=== PATIENT | female | born 1940 | race American Indian/Alaskan Native ===

== ENCOUNTER 2016-07-22 12:49 | Emergency (ER) | payer MEDICARE, SELFPAY ==
[2016-07-22 13:05] VITALS: BP 133/72
--- NOTE | 2016-07-22 13:34 | EDM.PDOC ---
ED HPI ENT - General Chief Complaint: ENT Problem Stated Complaint: SORE THROAT, CHILLS, COUGH Time Seen by Provider: 07/22/16 13:20 Source: Reports: Patient History Limitations: Reports: No limitations - History of Present Illness INITIAL COMMENTS - FREE TEXT/NARRATIVE: 75 year old female with a sore throat for two days after being exposed to strep throat from her grandchild. No fevers or chills. Severity: mild Associated symptoms: Reports: nausea/vomiting (vomiting two days age). Denies: headaches, shortness of breath - Related Data Allergies/ADRs: Allergies Allergy/AdvReac Type Severity Reaction Status Date / Time diclofenac [From Voltaren] Allergy Cannot Verified 01/04/16 08:53 Remember tramadol Allergy Cannot Verified 01/04/16 08:53 Remember aspirin AdvReac Intermediate Syncope Verified 01/04/16 08:53 ibuprofen AdvReac Intermediate Syncope Verified 01/04/16 08:53 Home Meds: Home Meds Losartan [Cozaar] 100 tab PO DAILY 04/30/15 [History] atorvaSTATin [Lipitor] 40 mg PO BEDTIME #30 tablet 05/01/15 [Rx] Albuterol [Ventolin HFA] 1 - 2 puff .XX Q4H PRN 09/26/15 [History] Apixaban [Eliquis] 2.5 mg PO BID 09/26/15 [History] Calcium Carbonate/Vitamin D3 [Calcium 600-Vit D3 400 Tablet] 1 tab PO BID [History] Magnesium Oxide 400 mg PO BID 09/26/15 [History] Cholecalciferol (Vitamin D3) [Vitamin D3] 1,000 units PO DAILY 11/29/15 [History ] Cyanocobalamin (Vitamin B-12) [B-12] 500 mcg PO DAILY 11/29/15 [History] Docusate Sodium [Colace] 100 mg PO BID 11/29/15 [History] Hydrocodone/Acetaminophen [Hydrocodon-Acetaminophen 5-325] 1 tab PO BEDTIME 10/09 [History] Ipratropium [Atrovent HFA] 2 puff IH BID 11/29/15 [History] Loratadine 10 mg PO DAILY 11/29/15 [History] Polyethylene Glycol 3350 [Miralax] 17 gm PO ASDIRECTED 11/29/15 [History] Spironolactone [Aldactone] 25 mg PO DAILY 11/29/15 [History] Multivitamins [Tab-A-Sarah] 1 tab PO DAILY 01/02/16 [History] Sodium Chloride [Deep Sea] 1 - 2 spray NASBOTH ASDIRECTED 01/02/16 [History] Pantoprazole [Protonix] 40 mg PO DAILY 01/04/16 [History] Sotalol HCl [Sotalol] 80 mg PO BID 06/16/16 [History] Past Medical History HEENT History: Reports: Allergic rhinitis, Cataract, Impaired vision Cardiovascular History: Reports: Afib, High cholesterol, Hypertension Respiratory History: Reports: Bronchitis, recurrent, COPD, Pneumonia, recurrent Gastrointestinal History: Reports: Chronic constipation, Gastritis, GERD Genitourinary History: Reports: Renal calculus, UTI, recurrent [employer] History: Reports: 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, Musculoskeletal History: Reports: Arthritis, Back pain, chronic, Osteoarthritis , RA Neurological History: Reports: CVA, Migraines, Vertigo Psychiatric History: Reports: Depression Endocrine/Metabolic History: Reports: Vitamin D deficiency Hematologic History: Reports: Anemia, B12 deficiency, Blood transfusion(s), Iron deficiency - Infectious Disease History Infectious Disease History: Reports: Chicken pox, Measles, Mumps, TB - Past Surgical History Head Surgeries/Procedures: Reports: None HEENT Surgical History: Reports: Cataract surgery, Oral surgery Cardiovascular Surgical History: Reports: None Respiratory Surgical History: Reports: None GI Surgical History: Reports: Cholecystectomy, EGD Female Surgical History: Reports: Hysterectomy, Oophorectomy Endocrine Surgical History: Reports: None Neurological Surgical History: Reports: Laminectomy, Lumbar spine Musculoskeletal Surgical History: Reports: None Dermatological Surgical History: Reports: None Social & Family History - Family History Family Medical History: Noncontributory - Tobacco Use Smoking Status *Q: Current Every Day Smoker Years of Tobacco use: 30 Packs/Tins Daily: 1 Used Tobacco, but Quit: No Second Hand Smoke Exposure: No - Caffeine Use Caffeine Use: Reports: Coffee, Soda, Tea - Alcohol Use Days Per Week of Alcohol Use: 0 - Recreational Drug Use Recreational Drug Use: No ED ROS ENT - Review of Systems Review Of Systems: See Below Constitutional: Denies: fever, chills HEENT: Reports: Throat pain Respiratory: Denies: shortness of breath, cough GI/Abdominal: Reports: Vomiting. Denies: Diarrhea Neurological: Reports: no symptoms. Denies: headache ED EXAM, ENT - Physical Exam Exam: See Below Exam Limited By: No limitations General Appearance: alert, no apparent distress Mouth/Throat: Pharyngeal erythema Neck: No: lymphadenopathy (R), lymphadenopathy (L) Respiratory/Chest: no respiratory distress, lungs clear Course - Vital Signs Last Recorded V/S: Last Vital Signs Temp 96.8 F 07/22/16 13:05 Pulse 64 07/22/16 13:05 Resp 16 07/22/16 13:05 BP 133/72 07/22/16 13:05 Pulse Ox 97 07/22/16 13:05 - Re-Assessments/Exams Free Text/Narrative Re-Assessment/Exam: 07/22/16 13:31 Because of the exposure we will treat with with amoxicillin 500 mg three times daily. Return if worsening or recheck in 3 days if not improving Departure - Departure Time of Disposition: 14:02 Disposition: Home, Self-Care 01 Condition: good Clinical Impression: Strep pharyngitis Instructions: Pharyngitis Referrals: PCP,None [Primary Care Provider] - Forms: ED Department Discharge Care Plan Goals: Take antibiotic three times daily for 7 days, return if worsening despite treatment or consider recheck in 3 days if not improving
== END 2016-07-22 14:01 | disposition home or self-care (01) ==
LOC: JP.ED 12:49
DX: J02.9 Acute pharyngitis, unspecified (principal); I10 Essential (primary) hypertension; I48.91 Unspecified atrial fibrillation; J44.9 Chronic obstructive pulmonary disease, unspecified; K21.9 Gastro-esophageal reflux disease without esophagitis; M06.9 Rheumatoid arthritis, unspecified; F32.9 Major depressive disorder, single episode, unspecified; F17.210 Nicotine dependence, cigarettes, uncomplicated; Z98.49 Cataract extraction status, unspecified eye; Z90.49 Acquired absence of other specified parts of digestive tract; Z90.710 Acquired absence of both cervix and uterus; Z90.721 Acquired absence of ovaries, unilateral; Z98.890 Other specified postprocedural states; Z79.899 Other long term (current) drug therapy; Z88.8 Allergy status to other drugs, medicaments and biological substances
CPT/HCPCS: 99283

== ENCOUNTER 2016-08-27 20:51 | Emergency (ER) | payer MEDICARE ==
[2016-08-27 21:06] VITALS: BP 162/73
--- NOTE | 2016-08-27 21:45 | EDM.PDOC ---
ED HPI ENT - General Chief Complaint: ENT Problem Stated Complaint: STREP Time Seen by Provider: 08/27/16 21:42 Source: Reports: Patient History Limitations: Reports: No limitations - History of Present Illness INITIAL COMMENTS - FREE TEXT/NARRATIVE: pt was exposesd to strept this week end. Timing/Duration: Reports: Hour(s):, Getting worse Severity: moderate Location: Reports: throat Quality: Reports: Sharp Associated symptoms: Reports: other (pain with swallowing. ) - Related Data Allergies/ADRs: Allergies Allergy/AdvReac Type Severity Reaction Status Date / Time diclofenac [From Voltaren] Allergy Cannot Verified 08/27/16 21:07 Remember tramadol Allergy Cannot Verified 08/27/16 21:07 Remember aspirin AdvReac Intermediate Syncope Verified 08/27/16 21:07 ibuprofen AdvReac Intermediate Syncope Verified 08/27/16 21:07 Home Meds: Home Meds Losartan [Cozaar] 100 tab PO DAILY 04/30/15 [History] atorvaSTATin [Lipitor] 40 mg PO BEDTIME #30 tablet 05/01/15 [Rx] Albuterol [Ventolin HFA] 1 - 2 puff .XX Q4H PRN 09/26/15 [History] Apixaban [Eliquis] 2.5 mg PO BID 09/26/15 [History] Calcium Carbonate/Vitamin D3 [Calcium 600-Vit D3 400 Tablet] 1 tab PO BID [History] Magnesium Oxide 400 mg PO BID 09/26/15 [History] Cholecalciferol (Vitamin D3) [Vitamin D3] 1,000 units PO DAILY 11/29/15 [History ] Cyanocobalamin (Vitamin B-12) [B-12] 500 mcg PO DAILY 11/29/15 [History] Docusate Sodium [Colace] 100 mg PO BID 11/29/15 [History] Hydrocodone/Acetaminophen [Hydrocodon-Acetaminophen 5-325] 1 tab PO BEDTIME 10/09 [History] Ipratropium [Atrovent HFA] 2 puff IH BID 11/29/15 [History] Loratadine 10 mg PO DAILY 11/29/15 [History] Polyethylene Glycol 3350 [Miralax] 17 gm PO ASDIRECTED 11/29/15 [History] Spironolactone [Aldactone] 25 mg PO DAILY 11/29/15 [History] Multivitamins [Tab-A-Sarah] 1 tab PO DAILY 01/02/16 [History] Sodium Chloride [Deep Sea] 1 - 2 spray NASBOTH ASDIRECTED 01/02/16 [History] Pantoprazole [ProTONIX] 40 mg PO DAILY 01/04/16 [History] Sotalol HCl [Sotalol] 80 mg PO BID 06/16/16 [History] Past Medical History HEENT History: Reports: Allergic rhinitis, Cataract, Impaired vision Cardiovascular History: Reports: Afib, High cholesterol, Hypertension Respiratory History: Reports: Bronchitis, recurrent, COPD, Pneumonia, recurrent Gastrointestinal History: Reports: Chronic constipation, Gastritis, GERD Genitourinary History: Reports: Renal calculus, UTI, recurrent 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: 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, Musculoskeletal History: Reports: Arthritis, Back pain, chronic, Osteoarthritis , RA Neurological History: Reports: CVA, Migraines, Vertigo Psychiatric History: Reports: Depression Endocrine/Metabolic History: Reports: Vitamin D deficiency Hematologic History: Reports: Anemia, B12 deficiency, Blood transfusion(s), Iron deficiency Oncologic (Cancer) History: Reports: Leukemia - Infectious Disease History Infectious Disease History: Reports: Chicken pox, Measles - Past Surgical History Head Surgeries/Procedures: Reports: None HEENT Surgical History: Reports: Cataract surgery, Oral surgery Cardiovascular Surgical History: Reports: None Respiratory Surgical History: Reports: None GI Surgical History: Reports: Cholecystectomy, Colonoscopy, EGD Female Surgical History: Reports: Hysterectomy, Oophorectomy Endocrine Surgical History: Reports: None Neurological Surgical History: Reports: Laminectomy, Lumbar spine Musculoskeletal Surgical History: Reports: None Oncologic Surgical History: Reports: Bone marrow aspiration Dermatological Surgical History: Reports: None Social & Family History - Family History Family Medical History: Noncontributory - Tobacco Use Smoking Status *Q: Current Every Day Smoker Years of Tobacco use: 55 Packs/Tins Daily: 0.2 Used Tobacco, but Quit: No Second Hand Smoke Exposure: No - Caffeine Use Caffeine Use: Reports: Coffee, Soda, Tea - Alcohol Use Days Per Week of Alcohol Use: 0 - Recreational Drug Use Recreational Drug Use: No ED ROS ENT - Review of Systems Review Of Systems: See Below Constitutional: Reports: fatigue HEENT: Reports: Throat pain Respiratory: Reports: No Symptoms Cardiovascular: Reports: No symptoms Endocrine: Reports: no symptoms GI/Abdominal: Reports: No symptoms : Reports: no symptoms ED EXAM, ENT - Physical Exam Exam: See Below Text/Narrative:: pt has alot of pain with swallowing. She has a known exposure to strept. Exam Limited By: No limitations General Appearance: alert, anxious Ears: normal TMs Nose: normal inspection Mouth/Throat: Throat pain, Other ( there are 2 red areas in the rt tonsilar area which could be small canker like sores. ) Head: atraumatic Neck: lymphadenopathy (R), lymphadenopathy (L) Respiratory/Chest: no respiratory distress Cardiovascular: regular rate, rhythm GI/Abdominal: soft, non tender Course - Vital Signs Last Recorded V/S: Last Vital Signs Temp 36.1 C 08/27/16 21:13 Pulse 77 08/27/16 21:13 Resp 14 08/27/16 21:13 BP 162/73 H 08/27/16 21:13 Pulse Ox 98 08/27/16 21:13 - Orders/Labs/Meds Orders: Active Orders 24 hr Category Date Time Status CULTURE STREP A CONFIRMATION [] Stat Lab 08/27/16 21:18 Results STREP SCRN A RAPID W CULT CONF [RM] Stat Lab 08/27/16 21:18 Results Labs: Laboratory Tests 08/27/16 Range/Units 21:42 WBC 10.3 (4.5-11.0) K/uL RBC 1.51 L (3.30-5.50) M/uL Hgb 12.0 (12.0-15.0) g/dL Hct 16.0 L (36.0-48.0) % MCV 106 H (80-98) fL MCH 80 H (27-31) pg MCHC 75 H (32-36) % Plt Count 296 (150-400) K/uL Neut % (Auto) 58 (36-66) % Lymph % (Auto) 31 (24-44) % [place] % (Auto) 9 H (2-6) % Eos % (Auto) 2 (2-4) % Baso % (Auto) 1 (0-1) % - Re-Assessments/Exams Free Text/Narrative Re-Assessment/Exam: 08/27/16 22:01 strept was neg, her wbc is not markedly elevated. She did have a definite strept exposure. Departure - Departure Time of Disposition: 22:02 Disposition: Home, Self-Care 01 Condition: fair Clinical Impression: Acute infective pharyngitis Forms: ED Department Discharge Care Plan Goals: gargle frequently, amoxicillin 500mg tid - My Orders Last 24 Hours: My Active Orders 08/27/16 21:18 CULTURE STREP A CONFIRMATION [RM] Stat STREP SCRN A RAPID W CULT CONF [RM] Stat - Assessment/Plan Last 24 Hours: My Active Orders 08/27/16 21:18 CULTURE STREP A CONFIRMATION [RM] Stat STREP SCRN A RAPID W CULT CONF [] Stat
== END 2016-08-27 22:14 | disposition home or self-care (01) ==
LOC: JP.ED 20:51
DX: J02.9 Acute pharyngitis, unspecified (principal); I10 Essential (primary) hypertension; I48.91 Unspecified atrial fibrillation; M19.90 Unspecified osteoarthritis, unspecified site; J44.9 Chronic obstructive pulmonary disease, unspecified; K21.9 Gastro-esophageal reflux disease without esophagitis; F32.9 Major depressive disorder, single episode, unspecified; E78.00 Pure hypercholesterolemia, unspecified; Z87.01 Personal history of pneumonia (recurrent); M06.9 Rheumatoid arthritis, unspecified; Z88.6 Allergy status to analgesic agent; F17.210 Nicotine dependence, cigarettes, uncomplicated; Z88.5 Allergy status to narcotic agent; Z86.2 Personal history of diseases of the blood and blood-forming organs and certain disorders involving the immune mechanism; Z88.8 Allergy status to other drugs, medicaments and biological substances; Z79.899 Other long term (current) drug therapy; Z87.440 Personal history of urinary (tract) infections; Z86.73 Personal history of transient ischemic attack (TIA), and cerebral infarction without residual deficits; Z98.49 Cataract extraction status, unspecified eye; Z98.890 Other specified postprocedural states; Z90.49 Acquired absence of other specified parts of digestive tract; Z90.710 Acquired absence of both cervix and uterus
CPT/HCPCS: 36415; 85025; 87081; 87430; 99283; 99284

== ENCOUNTER 2016-10-14 12:43 | Emergency (ER) | payer MEDICARE, SELFPAY ==
--- NOTE | 2016-10-14 14:11 | EDM.PDOC ---
ED HPI GENERAL MEDICAL PROBLEM - General Chief Complaint: General Stated Complaint: MED[facility] Time Seen by Provider: 10/14/16 14:04 Source of Information: Reports: Patient, Family History Limitations: Reports: No Limitations - History of Present Illness INITIAL COMMENTS - FREE TEXT/NARRATIVE: Pt brought to ER after feeling dizzy about 1100. Was sweaty. Called the ambulance due to her past history. Does live with a daughter but she is out of town. Pt has not had any new meds or changes lately. Appetite has been good. Got up at 0700 and ate 2 pieces of toast and then went back to bed. Was "feeling funny." Does have history of bladder infection. Denies fever or recent illness. Onset: Today Onset Date: 10/14/16 Onset Time: 11:00 Duration: Resolved Prior to Arrival Improves with: Reports: None Worsens with: Reports: None Associated Symptoms: Reports: Diaphoresis - Related Data Allergies Allergy/AdvReac Type Severity Reaction Status Date / Time diclofenac [From Voltaren] Allergy Cannot Verified 10/14/16 13:25 Remember tramadol Allergy Cannot Verified 10/14/16 13:25 Remember aspirin AdvReac Intermediate Syncope Verified 10/14/16 13:25 ibuprofen AdvReac Intermediate Syncope Verified 10/14/16 13:25 Home Meds: Home Meds Losartan [Cozaar] 100 tab PO DAILY 04/30/15 [History] atorvaSTATin [Lipitor] 40 mg PO BEDTIME #30 tablet 05/01/15 [Rx] Albuterol [Ventolin HFA] 1 - 2 puff .XX Q4H PRN 09/26/15 [History] Apixaban [Eliquis] 2.5 mg PO BID 09/26/15 [History] Calcium Carbonate/Vitamin D3 [Calcium 600-Vit D3 400 Tablet] 1 tab PO BID [History] Magnesium Oxide 400 mg PO BID 09/26/15 [History] Cholecalciferol (Vitamin D3) [Vitamin D3] 1,000 units PO DAILY 11/29/15 [History ] Cyanocobalamin (Vitamin B-12) [B-12] 500 mcg PO DAILY 11/29/15 [History] Docusate Sodium [Colace] 100 mg PO BID 11/29/15 [History] Hydrocodone/Acetaminophen [Hydrocodon-Acetaminophen 5-325] 1 tab PO BEDTIME 10/09 [History] Ipratropium [Atrovent HFA] 2 puff IH BID 11/29/15 [History] Loratadine 10 mg PO DAILY 11/29/15 [History] Polyethylene Glycol 3350 [Miralax] 17 gm PO ASDIRECTED 11/29/15 [History] Spironolactone [Aldactone] 25 mg PO DAILY 11/29/15 [History] Multivitamins [Tab-A-Sarah] 1 tab PO DAILY 01/02/16 [History] Sodium Chloride [Deep Sea] 1 - 2 spray NASBOTH ASDIRECTED 01/02/16 [History] Pantoprazole [ProTONIX] 40 mg PO DAILY 01/04/16 [History] Sotalol HCl [Sotalol] 80 mg PO BID 06/16/16 [History] Past Medical History HEENT History: Reports: Allergic Rhinitis, Cataract, Impaired Vision Cardiovascular History: Reports: Afib, High Cholesterol, Hypertension Respiratory History: Reports: Bronchitis, Recurrent, COPD, Pneumonia, Recurrent Gastrointestinal History: Reports: Chronic Constipation, Gastritis, GERD Genitourinary History: Reports: Renal Calculus, UTI, 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, Musculoskeletal History: Reports: Arthritis, Back Pain, Chronic, Osteoarthritis , RA Neurological History: Reports: CVA, Migraines, Vertigo Psychiatric History: Reports: Depression Endocrine/Metabolic History: Reports: Vitamin D Deficiency Hematologic History: Reports: Anemia, B12 Deficiency, Blood Transfusion(s), Iron Deficiency Oncologic (Cancer) History: Reports: Lymphoma, Other (See Below) - Infectious Disease History Infectious Disease History: Reports: Chicken Pox, Measles - Past Surgical History Head Surgeries/Procedures: Reports: None HEENT Surgical History: Reports: Cataract Surgery, Oral Surgery Neurological Surgical History: Reports: Laminectomy, Lumbar Spine Oncologic Surgical History: Reports: Bone Marrow Aspiration Dermatological Surgical History: Reports: None Social & Family History - Family History Family Medical History: Noncontributory - Tobacco Use Smoking Status *Q: Light Tobacco Smoker Years of Tobacco use: 58 Packs/Tins Daily: 0.5 Used Tobacco, but Quit: No Second Hand Smoke Exposure: No - Caffeine Use Caffeine Use: Reports: Coffee, Soda, Tea - Alcohol Use Days Per Week of Alcohol Use: 0 - Recreational Drug Use Recreational Drug Use: No ED ROS GENERAL - Review of Systems Review Of Systems: See Below Constitutional: Reports: Diaphoresis HEENT: Reports: No Symptoms Respiratory: Reports: No Symptoms Cardiovascular: Reports: No Symptoms Endocrine: Reports: No Symptoms GI/Abdominal: Reports: No Symptoms Musculoskeletal: Reports: No Symptoms Skin: Reports: Diaphoresis Neurological: Reports: Dizziness Psychiatric: Reports: No Symptoms Hematologic/Lymphatic: Reports: No Symptoms Immunologic: Reports: No Symptoms ED EXAM, GENERAL - Physical Exam Exam: See Below Course - Vital Signs Last Recorded V/S: Last Vital Signs Temp 96.4 F 10/14/16 13:22 Pulse 61 10/14/16 14:34 Resp 14 10/14/16 13:56 BP 174/83 H 10/14/16 14:34 Pulse Ox 98 10/14/16 14:34 - Orders/Labs/Meds Orders: Active Orders 24 hr Category Date Time Status Nitrofurantoin [place]/Macrocryst [Macrobid] Med 10/14/16 15:11 Once 100 mg PO ONETIME ONE Labs: Laboratory Tests 10/14/16 10/14/16 10/14/16 Range/Units 13:52 14:27 14:27 WBC 10.5 (4.5-11.0) K/uL RBC 3.45 (3.30-5.50) M/uL Hgb 12.7 (12.0-15.0) g/dL Hct 35.0 L (36.0-48.0) % MCV 101 H (80-98) fL MCH 37 H (27-31) pg MCHC 36 (32-36) % Plt Count 248 (150-400) K/uL Neut % (Auto) 68 H (36-66) % Lymph % (Auto) 19 L (24-44) % [place] % (Auto) 12 H (2-6) % Eos % (Auto) 1 L (2-4) % Baso % (Auto) 0 (0-1) % Sodium 142 (140-148) mmol/L Potassium 3.9 (3.6-5.2) mmol/L Chloride 106 (100-108) mmol/L Carbon Dioxide 26 (21-32) mmol/L Anion Gap 9.7 (5.0-14.0) mmol/L BUN 16 (7-18) mg/dL Creatinine 1.1 H (0.6-1.0) mg/dL Est Cr Clr Drug Dosing 40.38 mL/min Estimated GFR (MDRD) 49 L (>60) Glucose 117 H (74-106) mg/dL Calcium 8.9 (8.5-10.1) mg/dL Urine Color Yellow Urine Appearance Cloudy Urine pH 7.0 (4.5-8.0) Ur Specific [place] 1.010 (1.008-1.030) Urine Protein Negative (NEGATIVE) mg/dL Urine Glucose (UA) Normal (NEGATIVE) mg/dL Urine Ketones Negative (NEGATIVE) mg/dL Urine Occult Blood Negative (NEGATIVE) Urine Nitrite Negative (NEGATIVE) Urine Bilirubin Negative (NEGATIVE) Urine Urobilinogen Normal (NORMAL) mg/dL Ur Leukocyte Esterase Small (NEGATIVE) Urine RBC 5-10 H (0-5) Urine WBC 10-20 H (0-5) Ur Epithelial Cells Few Amorphous Sediment Few Urine Bacteria Rare Urine Mucus Few Departure - Departure Time of Disposition: 15:12 Disposition: Home, Self-Care 01 Condition: good Clinical Impression: UTI (urinary tract infection) Qualifiers: Urinary tract infection type: acute cystitis Hematuria presence: with hematuria Qualified Code(s): N30.01 - Acute cystitis with hematuria - Discharge Information Forms: ED Department Discharge Additional Instructions: Labs stable overall. UA does show UTI. Macrobid 100mg 1st dose given in ER. Rx given for Macrobid BID x 7 days. Recommend increase fluids, repeat UA with primary care in 2 weeks. Granddaughter voices understanding. Pt agrees with plan. - Problem List & Annotations (1) UTI (urinary tract infection) SNOMED Code(s): 41638471 Code(s): N39.0 - URINARY TRACT INFECTION, SITE NOT SPECIFIED Status: Acute Priority: Medium Current Visit: Yes Qualifiers: Urinary tract infection type: acute cystitis Hematuria presence: with hematuria Qualified Code(s): N30.01 - Acute cystitis with hematuria - My Orders Last 24 Hours: My Active Orders 10/14/16 15:11 Nitrofurantoin [place]/Macrocryst [Macrobid] 100 mg PO ONETIME ONE - Assessment/Plan Last 24 Hours: My Active Orders 10/14/16 15:11 Nitrofurantoin [place]/Macrocryst [Macrobid] 100 mg PO ONETIME ONE
[2016-10-14] MEDS ORDERED: Nitrofurantoin Monohydrate/Macrocrystalline 100 MG Cap PO ONE (15:11)
[2016-10-14 15:12] VITALS: BP 139/64
== END 2016-10-14 15:33 | disposition home or self-care (01) ==
LOC: JP.ED 12:43
DX: N30.01 Acute cystitis with hematuria (principal); I10 Essential (primary) hypertension; I48.91 Unspecified atrial fibrillation; E78.00 Pure hypercholesterolemia, unspecified; K21.9 Gastro-esophageal reflux disease without esophagitis; J44.9 Chronic obstructive pulmonary disease, unspecified; M19.90 Unspecified osteoarthritis, unspecified site; G43.909 Migraine, unspecified, not intractable, without status migrainosus; Z87.01 Personal history of pneumonia (recurrent); Z88.8 Allergy status to other drugs, medicaments and biological substances; Z79.899 Other long term (current) drug therapy; Z87.440 Personal history of urinary (tract) infections; Z86.73 Personal history of transient ischemic attack (TIA), and cerebral infarction without residual deficits; Z85.72 Personal history of non-Hodgkin lymphomas; Z98.49 Cataract extraction status, unspecified eye; Z98.890 Other specified postprocedural states
CPT/HCPCS: 36415; 80048; 81001; 85025; 99284; A9270; 99281

== ENCOUNTER 2016-12-10 15:05 | Emergency (ER) | payer MEDICAID, MEDICARE ==
[2016-12-10] MEDS ORDERED: Sodium Chloride 0.9% 10 ML Syringe FLUSH PRN (17:31)
[2016-12-10] MEDS ORDERED: Ondansetron 4 MG/2 ML SDV IVPUSH ONE (17:31)
[2016-12-10] MEDS ORDERED: Metoclopramide 10 MG/2 ML SDV IVPUSH ONE (17:37)
[2016-12-10] MEDS ORDERED: HYDROmorphone 0.5 MG/0.5 ML Syringe IVPUSH ONE (17:38)
[2016-12-10] MEDS ORDERED: diphenhydrAMINE 50 MG/ML SDV IVPUSH ONE (17:38)
[2016-12-10] MEDS ORDERED: Sodium Chloride 0.9% 1,000 ML IV SCH ×2 (17:45→19:15)
--- NOTE | 2016-12-10 17:47 | EDM.PDOC ---
ED HPI GENERAL MEDICAL PROBLEM - General Chief Complaint: General Stated Complaint: DIZZY, LIGHT HEADED TERRIBLE HEADACHE Time Seen by Provider: 12/10/16 17:25 Source of Information: Reports: Patient, Family History Limitations: Reports: No Limitations - History of Present Illness INITIAL COMMENTS - FREE TEXT/NARRATIVE: Susie presents today with complaints of headache, dizziness since 1000 this am. She reports she has a history of chronic UTI due to incomplete bladder emptying and develops a UTI every 2 months. She reports headache that started at the base of her skull and has now moved to her forehead. She denies change in vision, hearing, ability to ambulate or eat and drink. She states she was able to take her morning medications today. Onset: Today Onset Date: 12/10/16 Onset Time: 10:00 Duration: Hour(s): Location: Reports: Head Lower Headache Pain Score (Numeric/FACES): 8 - Related Data Allergies Allergy/AdvReac Type Severity Reaction Status Date / Time diclofenac [From Voltaren] Allergy Cannot Verified 10/14/16 13:25 Remember tramadol Allergy Cannot Verified 10/14/16 13:25 Remember aspirin AdvReac Intermediate Syncope Verified 10/14/16 13:25 ibuprofen AdvReac Intermediate Syncope Verified 10/14/16 13:25 Home Meds: Home Meds Losartan [Cozaar] 100 tab PO DAILY 04/30/15 [History] atorvaSTATin [Lipitor] 40 mg PO BEDTIME #30 tablet 05/01/15 [Rx] Albuterol [Ventolin HFA] 1 - 2 puff .XX Q4H PRN 09/26/15 [History] Apixaban [Eliquis] 2.5 mg PO BID 09/26/15 [History] Calcium Carbonate/Vitamin D3 [Calcium 600-Vit D3 400 Tablet] 1 tab PO BID [History] Magnesium Oxide 400 mg PO BID 09/26/15 [History] Cholecalciferol (Vitamin D3) [Vitamin D3] 1,000 units PO DAILY 11/29/15 [History ] Cyanocobalamin (Vitamin B-12) [B-12] 500 mcg PO DAILY 11/29/15 [History] Docusate Sodium [Colace] 100 mg PO BID 11/29/15 [History] Hydrocodone/Acetaminophen [Hydrocodon-Acetaminophen 5-325] 1 tab PO BEDTIME 10/09 [History] Ipratropium [Atrovent HFA] 2 puff IH BID 11/29/15 [History] Loratadine 10 mg PO DAILY 11/29/15 [History] Polyethylene Glycol 3350 [Miralax] 17 gm PO ASDIRECTED 11/29/15 [History] Spironolactone [Aldactone] 25 mg PO DAILY 11/29/15 [History] Multivitamins [Tab-A-Sarah] 1 tab PO DAILY 01/02/16 [History] Sodium Chloride [Deep Sea] 1 - 2 spray NASBOTH ASDIRECTED 01/02/16 [History] Pantoprazole [ProTONIX] 40 mg PO DAILY 01/04/16 [History] Sotalol HCl [Sotalol] 80 mg PO BID 06/16/16 [History] Past Medical History HEENT History: Reports: Allergic Rhinitis, Cataract, Impaired Vision Cardiovascular History: Reports: Afib, High Cholesterol, Hypertension Respiratory History: Reports: Bronchitis, Recurrent, COPD, Pneumonia, Recurrent Gastrointestinal History: Reports: Chronic Constipation, Gastritis, GERD Genitourinary History: Reports: Renal Calculus, UTI, Recurrent 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: Dysfunctional Uterine Bleeding, Musculoskeletal History: Reports: Arthritis, Back Pain, Chronic, Osteoarthritis , RA Neurological History: Reports: CVA, Migraines, Vertigo Psychiatric History: Reports: Depression Endocrine/Metabolic History: Reports: Vitamin D Deficiency Hematologic History: Reports: Anemia, B12 Deficiency, Blood Transfusion(s), Iron Deficiency, Other (See Below) 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 Oncologic (Cancer) History: Reports: Lymphoma, Other (See Below) - Infectious Disease History Infectious Disease History: Reports: Chicken Pox, Measles, Mumps - Past Surgical History Head Surgeries/Procedures: Reports: None HEENT Surgical History: Reports: Cataract Surgery, Oral Surgery Neurological Surgical History: Reports: Laminectomy, Lumbar Spine Oncologic Surgical History: Reports: Bone Marrow Aspiration Dermatological Surgical History: Reports: None Social & Family History - Family History Family Medical History: Noncontributory - Tobacco Use Smoking Status *Q: Current Every Day Smoker Years of Tobacco use: 60 Packs/Tins Daily: 0.5 Used Tobacco, but Quit: No Second Hand Smoke Exposure: No - Caffeine Use Caffeine Use: Reports: Coffee, Soda - Alcohol Use Days Per Week of Alcohol Use: 0 - Recreational Drug Use Recreational Drug Use: No ED ROS GENERAL - Review of Systems Review Of Systems: See Below Constitutional: Denies: Fever, Chills, Malaise, Weakness, Night Sweats, Diaphoresis HEENT: Denies: Dental Pain, Ear Discharge, Ear Pain, Hearing Loss, Nosebleed, Nose Pain, Throat Pain, Vertigo, Vision Change Respiratory: Denies: Shortness of Breath, Wheezing, Cough, Sputum, Hemoptysis Cardiovascular: Denies: Chest Pain, Dyspnea on Exertion, Edema, Lightheadedness , Orthopnea, Palpitations, PND Endocrine: Reports: No Symptoms GI/Abdominal: Reports: Bloody Stool. Denies: Abdominal Pain, Constipation, Diarrhea, Decreased Appetite, Distension, Flatus, Hematemesis, Nausea, Stool Incontinence, Vomiting : Reports: Urinary Retention. Denies: Discharge, Dysuria, Flank Pain, Frequency, Hematuria, Incontinence, Pain, Urgency Skin: Denies: Cyanosis, Diaphoresis, Bruising, Pruritis, Rash, Erythema, Wound Neurological: Reports: Dizziness, Headache. Denies: Confusion, Numbness, Paresthesia, Seizure, Syncope, Tingling, Trouble Speaking, Weakness, Gait Disturbance Psychiatric: Reports: No Symptoms Hematologic/Lymphatic: Reports: No Symptoms Immunologic: Reports: No Symptoms ED EXAM, GENERAL - Physical Exam Exam: See Below Exam Limited By: No Limitations General Appearance: Alert, WD/WN, No Apparent Distress Eye Exam: Bilateral Eye: EOMI, PERRL Ears: Normal External Exam, Normal Canal, Hearing Grossly Normal, Normal TMs Ear Exam: Bilateral Ear: Auricle Normal, Canal Normal, TM normal Nose: Normal Inspection, Normal Mucosa, No Blood Throat/Mouth: Normal Inspection, Normal Lips, Normal Teeth, Normal Gums, Normal Voice, No Airway Compromise Head: Atraumatic, Normocephalic Neck: Normal Inspection, Supple, Non-Tender, Full Range of Motion. No: Lymphadenopathy (R), Lymphadenopathy (L) Respiratory/Chest: No Respiratory Distress, Lungs Clear, Normal Breath Sounds, No Accessory Muscle Use, Chest Non-Tender Cardiovascular: Normal Peripheral Pulses, Regular Rate, Rhythm, No Edema, No Gallop, No Murmur, No Rub Peripheral Pulses: 2+: Radial (L), Radial (R), Dorsalis Pedis (L), Dorsalis Pedis (R) GI/Abdominal: Normal Bowel Sounds, Soft, Non-Tender, No Organomegaly, No Abnormal Bruit, No Mass Rectal (Female) Exam: Normal Exam, Normal Rectal Tone Back Exam: Normal Inspection, Full Range of Motion. No: CVA Tenderness (R), CVA Tenderness (L) Extremities: Normal Inspection, Normal Range of Motion, Non-Tender, No Pedal Edema, Normal Capillary Refill Neurological: Alert, Oriented, CN II-XII Intact, Normal Cognition, Normal Gait, No Motor/Sensory Deficits Psychiatric: Normal Affect, Normal Mood Skin Exam: Warm, Dry, Intact, Normal Color, No Rash Lymphatic: No Adenopathy Course - Vital Signs Last Recorded V/S: Last Vital Signs Temp 37.4 C 12/10/16 22:04 Pulse 69 12/10/16 22:42 Resp 20 12/10/16 22:42 BP 132/43 L 12/10/16 22:42 Pulse Ox 97 12/10/16 22:42 - Orders/Labs/Meds Orders: Active Orders 24 hr Category Date Time Status Chest 2V [CR] Stat Exams 12/10/16 22:14 Taken CULTURE URINE [RM] Stat Lab 12/10/16 20:04 Received Lactated Ringers [Ringers, Lactated] 1,000 ml Med 12/10/16 20:30 Active IV ASDIRECTED Sodium Chloride 0.9% [Normal Saline] 1,000 ml Med 12/10/16 17:45 Active IV ASDIRECTED Sodium Chloride 0.9% [Normal Saline] 1,000 ml Med 12/10/16 19:15 Active IV ASDIRECTED Sodium Chloride 0.9% [Saline Flush] Med 12/10/16 17:31 Active 10 ml FLUSH ASDIRECTED PRN Saline Lock Insert [OM.PC] Routine Oth 12/10/16 17:31 Ordered Medication Orders Sodium Chloride (Normal Saline) 1,000 mls @ 999 mls/hr IV ASDIRECTED AUGUSTINE Last Admin: 12/10/16 17:45 Dose: 999 mls/hr Sodium Chloride (Normal Saline) 1,000 mls @ 30 mls/hr IV ASDIRECTED AUGUSTINE Last Admin: 12/10/16 17:45 Dose: 30 mls/hr Lactated Ringer's (Ringers, Lactated) 1,000 mls @ 150 mls/hr IV ASDIRECTED AUGUSTINE Last Admin: 12/10/16 22:00 Dose: 150 mls/hr Sodium Chloride (Saline Flush) 10 ml FLUSH ASDIRECTED PRN PRN Reason: Keep Vein Open Last Admin: 12/10/16 17:35 Dose: 10 ml Labs: Laboratory Tests 12/10/16 12/10/16 12/10/16 Range/Units 17:31 17:49 17:49 WBC 15.4 H (4.5-11.0) K/uL RBC 2.99 L (3.30-5.50) M/uL Hgb 10.6 L D (12.0-15.0) g/dL Hct 30.0 L (36.0-48.0) % MCV 100 H (80-98) fL MCH 36 H (27-31) pg MCHC 35 (32-36) % Plt Count 302 (150-400) K/uL Neut % (Auto) 67 H (36-66) % Lymph % (Auto) 21 L (24-44) % [place] % (Auto) 11 H (2-6) % Eos % (Auto) 1 L (2-4) % Baso % (Auto) 0 (0-1) % ESR (0-25) mm/hr Sodium 137 L (140-148) mmol/L Potassium 3.5 L (3.6-5.2) mmol/L Chloride 103 (100-108) mmol/L Carbon Dioxide 26 (21-32) mmol/L Anion Gap 11.5 (5.0-14.0) mmol/L BUN 15 (7-18) mg/dL Creatinine 1.1 H (0.6-1.0) mg/dL Est Cr Clr Drug Dosing 39.70 mL/min Estimated GFR (MDRD) 48 L (>60) Glucose 97 (74-106) mg/dL Lactic Acid (0.4-2.0) mmol/L Calcium 8.8 (8.5-10.1) mg/dL Total Bilirubin 0.4 (0.2-1.0) mg/dL AST 15 (15-37) U/L ALT 13 (12-78) U/L Alkaline Phosphatase 102 (46-116) U/L C-Reactive Protein (0.0-0.3) mg/dL Total Protein 7.7 (6.4-8.2) g/dL Albumin 3.0 L (3.4-5.0) g/dL Globulin 4.7 H (2.3-3.5) g/dL Albumin/Globulin Ratio 0.6 L (1.2-2.2) Urine Color Yellow Urine Appearance Clear Urine pH 6.5 (4.5-8.0) Ur Specific Dow 1.005 L (1.008-1.030) Urine Protein Negative (NEGATIVE) mg/dL Urine Glucose (UA) Normal (NEGATIVE) mg/dL Urine Ketones Negative (NEGATIVE) mg/dL Urine Occult Blood Negative (NEGATIVE) Urine Nitrite Negative (NEGATIVE) Urine Bilirubin Negative (NEGATIVE) Urine Urobilinogen Normal (NORMAL) mg/dL Ur Leukocyte Esterase Negative (NEGATIVE) Urine RBC 0-5 (0-5) Urine WBC 0-5 (0-5) Ur Epithelial Cells Few Amorphous Sediment Not seen Urine Bacteria Few Urine Mucus Not seen 12/10/16 12/10/16 12/10/16 Range/Units 17:49 17:49 20:16 WBC (4.5-11.0) K/uL RBC (3.30-5.50) M/uL Hgb (12.0-15.0) g/dL Hct (36.0-48.0) % MCV (80-98) fL MCH (27-31) pg MCHC (32-36) % Plt Count (150-400) K/uL Neut % (Auto) (36-66) % Lymph % (Auto) (24-44) % [place] % (Auto) (2-6) % Eos % (Auto) (2-4) % Baso % (Auto) (0-1) % ESR 55 H (0-25) mm/hr Sodium (140-148) mmol/L Potassium (3.6-5.2) mmol/L Chloride (100-108) mmol/L Carbon Dioxide (21-32) mmol/L Anion Gap (5.0-14.0) mmol/L BUN (7-18) mg/dL Creatinine (0.6-1.0) mg/dL Est Cr Clr Drug Dosing mL/min Estimated GFR (MDRD) (>60) Glucose (74-106) mg/dL Lactic Acid 1.5 (0.4-2.0) mmol/L Calcium (8.5-10.1) mg/dL Total Bilirubin (0.2-1.0) mg/dL AST (15-37) U/L ALT (12-78) U/L Alkaline Phosphatase (46-116) U/L C-Reactive Protein 3.30 H (0.0-0.3) mg/dL Total Protein (6.4-8.2) g/dL Albumin (3.4-5.0) g/dL Globulin (2.3-3.5) g/dL Albumin/Globulin Ratio (1.2-2.2) Urine Color Urine Appearance Urine pH (4.5-8.0) Ur Specific Dow (1.008-1.030) Urine Protein (NEGATIVE) mg/dL Urine Glucose (UA) (NEGATIVE) mg/dL Urine Ketones (NEGATIVE) mg/dL Urine Occult Blood (NEGATIVE) Urine Nitrite (NEGATIVE) Urine Bilirubin (NEGATIVE) Urine Urobilinogen (NORMAL) mg/dL Ur Leukocyte Esterase (NEGATIVE) Urine RBC (0-5) Urine WBC (0-5) Ur Epithelial Cells Amorphous Sediment Urine Bacteria Urine Mucus Meds: Medications Generic Name Dose Route Start Last Admin Trade Name Freq PRN Reason Stop Dose Admin Sodium Chloride 1,000 mls @ 999 mls/hr 12/10/16 17:45 12/10/16 17:45 Normal Saline IV 999 mls/hr ASDIRECTED AUGUSTINE Administration Sodium Chloride 1,000 mls @ 30 mls/hr 12/10/16 19:15 12/10/16 17:45 Normal Saline IV 30 mls/hr ASDIRECTED AUGUSTINE Administration Lactated Ringer's 1,000 mls @ 150 mls/hr 12/10/16 20:30 12/10/16 22:00 Ringers, Lactated IV 150 mls/hr ASDIRECTED AUGUSTINE Administration Sodium Chloride 10 ml 12/10/16 17:31 12/10/16 17:35 Saline Flush FLUSH 10 ml ASDIRECTED PRN Administration Keep Vein Open Discontinued Medications Generic Name Dose Route Start Last Admin Trade Name Freq PRN Reason Stop Dose Admin Diphenhydramine HCl 50 mg 12/10/16 17:38 12/10/16 17:52 Benadryl IVPUSH 12/10/16 17:39 50 mg ONETIME ONE Administration Doxycycline Hyclate 100 mg 12/10/16 23:04 Vibramycin PO 12/10/16 23:05 ONETIME ONE Hydromorphone HCl 0.5 mg 12/10/16 17:38 12/10/16 19:18 Dilaudid IVPUSH 12/10/16 17:39 Not Given ONETIME ONE Metoclopramide HCl 10 mg 12/10/16 17:37 12/10/16 17:52 Reglan IVPUSH 12/10/16 17:38 10 mg ONETIME ONE Administration Ondansetron HCl 4 mg 12/10/16 17:31 Zofran IVPUSH 12/10/16 17:32 ONETIME ONE - Re-Assessments/Exams Free Text/Narrative Re-Assessment/Exam: 12/10/16 21:00 Pending report to hospitalist. Dr. Cook present to admit two other ER patients. Patient notified, all questions answered. Free Text/Narrative Re-Assessment/Exam: 12/10/16 22:[address] Cook, will complete PA/LAT chest xray, if negative she will be provided antibiotic and discharged. 12/10/16 23:04 Chest x-ray negative for acute findings with wet read. Radiologist report pending. Departure - Departure Time of Disposition: 23:05 Disposition: Home, Self-Care 01 Condition: Fair Clinical Impression: Bronchitis, Headache - Discharge Information Referrals: PCP,None [Primary Care Provider] - Forms: ED Department Discharge Additional Instructions: Your lab work and ER stay have been discussed with Dr. Reeder and Officer. They are in agreement with medication and discharge as below: You have been provided IV fluid, medication for nausea and diphenhydramine for headache with positive results. It is very important for you to make an appointment to follow up with your primary care provider in 2 days. Take doxycycine 100mg by mouth, one pill twice per day for 10 days. The first dose was given in the emergency room for bronchitis. Keep yourself hydrated. You make take your regular medications as instructed. Your urine today was negative for acute infection, however it will be cultured to see if any bacteria grows. If there is a need to change your antibiotics, you will be notified via letter or telephone. Return at any time for worsening, issues or concern. - My Orders Last 24 Hours: My Active Orders 12/10/16 17:31 Sodium Chloride 0.9% [Saline Flush] 10 ml FLUSH ASDIRECTED PRN Saline Lock Insert [OM.PC] Routine 12/10/16 17:45 Sodium Chloride 0.9% [Normal Saline] 1,000 ml IV ASDIRECTED 12/10/16 19:15 Sodium Chloride 0.9% [Normal Saline] 1,000 ml IV ASDIRECTED 12/10/16 20:04 CULTURE URINE [RM] Stat 12/10/16 20:30 Lactated Ringers [Ringers, Lactated] 1,000 ml IV ASDIRECTED 12/10/16 22:14 Chest 2V [CR] Stat - Assessment/Plan Last 24 Hours: My Active Orders 12/10/16 17:31 Sodium Chloride 0.9% [Saline Flush] 10 ml FLUSH ASDIRECTED PRN Saline Lock Insert [OM.PC] Routine 12/10/16 17:45 Sodium Chloride 0.9% [Normal Saline] 1,000 ml IV ASDIRECTED 12/10/16 19:15 Sodium Chloride 0.9% [Normal Saline] 1,000 ml IV ASDIRECTED 12/10/16 20:04 CULTURE URINE [RM] Stat 12/10/16 20:30 Lactated Ringers [Ringers, Lactated] 1,000 ml IV ASDIRECTED 12/10/16 22:14 Chest 2V [CR] Stat Assessment:: Bronchitis Headache Plan: Patient lab work and ER stay have been discussed with Dr. Reeder and Officer. They are in agreement with medication and discharge as below: Patient was provided IV fluid, medication for nausea and diphenhydramine for headache with positive results. It is very important for her to make an appointment to follow up with primary care provider in 2 days. Take doxycycine 100mg by mouth, one pill twice per day for 10 days. The first dose was given in the emergency room for bronchitis. Keep self hydrated. She make take your regular medications as instructed. Patient urine today was negative for acute infection, however it will be cultured to see if any bacteria grows. If there is a need to change antibiotics , she will be notified via letter or telephone. Return at any time for worsening, issues or concern
[2016-12-10] MEDS ORDERED: Lactated Ringers 1,000 ML IV SCH ×2 (19:15→20:30)
[2016-12-10 22:44] VITALS: BP 132/43
[2016-12-10] MEDS ORDERED: Doxycycline 100 MG Cap PO ONE (23:04)
--- NOTE | 2016-12-11 09:12 | CR ---
Chest 2V HISTORY: Elevated white blood count. COMPARISON: 04/30/2015. FINDINGS: Mild hyperinflation. Cardiac size is stable. No dense focal infiltrate or effusion. No acu te congestive change.
== END 2016-12-10 23:31 | disposition home or self-care (01) ==
LOC: JP.ED 15:05
DX: R51 Headache (principal); J40 Bronchitis, not specified as acute or chronic; H54.7 Unspecified visual loss; I48.91 Unspecified atrial fibrillation; E78.00 Pure hypercholesterolemia, unspecified; I10 Essential (primary) hypertension; Z98.84 Bariatric surgery status; Z86.73 Personal history of transient ischemic attack (TIA), and cerebral infarction without residual deficits; Z87.442 Personal history of urinary calculi; Z79.899 Other long term (current) drug therapy; Z87.440 Personal history of urinary (tract) infections; F32.9 Major depressive disorder, single episode, unspecified; Z88.8 Allergy status to other drugs, medicaments and biological substances; D64.9 Anemia, unspecified; M19.90 Unspecified osteoarthritis, unspecified site; M06.9 Rheumatoid arthritis, unspecified; K21.9 Gastro-esophageal reflux disease without esophagitis; Z87.01 Personal history of pneumonia (recurrent); Z98.890 Other specified postprocedural states; F17.210 Nicotine dependence, cigarettes, uncomplicated
CPT/HCPCS: 36415; 71020; 80053; 81001; 82272; 83605; 85025; 85651; 86140; 87086; 96361; 96374; 96375; 99284; A9270; J1200; J2765; J7040; J7050; J7120

== ENCOUNTER 2016-12-27 19:05 | Inpatient (IN) | payer MEDICARE ==
[2016-12-27] MEDS ORDERED: Sodium Chloride 0.9% 1,000 ML IV SCH (20:45)
--- NOTE | 2016-12-27 23:49 | EDM.PDOC ---
ED HPI GENERAL MEDICAL PROBLEM - General Chief Complaint: Headache Stated Complaint: [facility] Time Seen by Provider: 12/27/16 20:10 Source of Information: Reports: Patient, Family History Limitations: Reports: No Limitations - History of Present Illness INITIAL COMMENTS - FREE TEXT/NARRATIVE: History of present illness: [76-year-old female presenting with her granddaughter feeling unwell for the last week or so. They were going to a concert and when she got out of the car she stumbled and seemed confused and just was not herself and looked pale and so she decided to bring her in. Her complaints are somewhat vague feel well she' s been having trouble with headaches off and on for a week denies any chest pain cough cold symptoms denies any abdominal pain denies dysuria but does have a history of some fever and chills of late.] Review of systems: As per history of present illness and below otherwise all systems reviewed and negative. Past medical history: As per history of present illness and as reviewed below otherwise noncontributory. Surgical history: As per history of present illness and as reviewed below otherwise noncontributory. Social history: No reported history of drug or alcohol abuse. Family history: As per history of present illness and as reviewed below otherwise noncontributory. Physical exam: HEENT: Atraumatic, normocephalic, pupils reactive, negative for conjunctival pallor or scleral icterus, mucous membranes moist, throat clear, neck supple, nontender, trachea midline. Lungs: Clear to auscultation, breath sounds equal bilaterally, chest nontender. Heart: S1S2, regular, negative for clicks, rubs, or JVD. Abdomen: Soft, nondistended, nontender. Negative for masses or hepatosplenomegaly. Negative for costovertebral tenderness. Pelvis: Stable nontender. Genitourinary: Deferred. Rectal: Deferred. Extremities: Atraumatic, negative for cords or calf pain. Neurovascular unremarkable. Neuro: Awake, alert, oriented. Cranial nerves II through XII unremarkable. Cerebellum unremarkable. Motor and sensory unremarkable throughout. Exam nonfocal. Diagnostics: [CBC is showing elevated white count. Head CT is showing evidence for sphenoid sinusitis and an old infarct. Urinalysis is suggestive of severe UTI. Blood cultures and urine cultures have been obtained. Chest x-ray unremarkable. She is running a fever 38.4] Therapeutics: [She's received IV fluids while here] Impression: [Pyelonephritis] Plan: [Patient will be admitted Dr. Shah Is Here for the Admission.] Definitive disposition and diagnosis as appropriate pending reevaluation and review of above. posterior JULIO Pain Score (Numeric/FACES): 3 - Related Data Allergies Allergy/AdvReac Type Severity Reaction Status Date / Time diclofenac [From Voltaren] Allergy Cannot Verified 12/27/16 19:43 Remember tramadol Allergy Cannot Verified 12/27/16 19:43 Remember aspirin AdvReac Intermediate Syncope Verified 12/27/16 19:43 ibuprofen AdvReac Intermediate Syncope Verified 12/27/16 19:43 Home Meds: Home Meds Losartan [Cozaar] 50 tab PO DAILY 04/30/15 [History] atorvaSTATin [Lipitor] 40 mg PO BEDTIME #30 tablet 05/01/15 [Rx] Albuterol [Ventolin HFA] 1 puff .XX Q4H PRN 09/26/15 [History] Apixaban [Eliquis] 5 mg PO BID 09/26/15 [History] Calcium Carbonate/Vitamin D3 [Calcium 600-Vit D3 400 Tablet] 1 tab PO BID [History] Magnesium Oxide 400 mg PO BID 09/26/15 [History] Cholecalciferol (Vitamin D3) [Vitamin D3] 1,000 units PO DAILY 11/29/15 [History ] Cyanocobalamin (Vitamin B-12) [B-12] 500 mcg PO DAILY 11/29/15 [History] Docusate Sodium [Colace] 100 mg PO BID 11/29/15 [History] Ipratropium [Atrovent HFA] 2 puff IH QID 11/29/15 [History] Loratadine 10 mg PO DAILY 11/29/15 [History] Polyethylene Glycol 3350 [Miralax] 17 gm PO ASDIRECTED 11/29/15 [History] Spironolactone [Aldactone] 25 mg PO DAILY 11/29/15 [History] Multivitamins [Tab-A-Sarah] 1 tab PO DAILY 01/02/16 [History] Sodium Chloride [Deep Sea] 1 - 2 spray NASBOTH ASDIRECTED 01/02/16 [History] Pantoprazole [ProTONIX] 40 mg PO DAILY 01/04/16 [History] Sotalol HCl [Sotalol] 80 mg PO BID 06/16/16 [History] Cyclobenzaprine [Flexeril] 5 mg PO BEDTIME 12/27/16 [History] Hydrocodone/Acetaminophen [Hydrocodon-Acetaminophen 5-325] 1 tab PO Q6H PRN 08/10 [History] Past Medical History HEENT History: Reports: Allergic Rhinitis, Cataract, Impaired Vision Cardiovascular History: Reports: Afib, Heart Murmur, High Cholesterol, Hypertension Respiratory History: Reports: Bronchitis, Recurrent, COPD, Pneumonia, Recurrent Gastrointestinal History: Reports: Chronic Constipation, Gastritis, GERD Genitourinary History: Reports: Renal Calculus, UTI, Recurrent [employer] History: Reports: Dysfunctional Uterine Bleeding, Musculoskeletal History: Reports: Arthritis, Back Pain, Chronic, Osteoarthritis , RA Neurological History: Reports: CVA, Migraines, Vertigo Psychiatric History: Reports: Depression Endocrine/Metabolic History: Reports: Vitamin D Deficiency Hematologic History: Reports: Anemia, B12 Deficiency, Blood Transfusion(s), Iron Deficiency, Other (See Below) 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, cold agglutinin Immunologic History: Reports: None Oncologic (Cancer) History: Reports: Lymphoma Dermatologic History: Reports: None - Infectious Disease History Infectious Disease History: Reports: Chicken Pox, Measles, Mumps - Past Surgical History Head Surgeries/Procedures: Reports: None HEENT Surgical History: Reports: Cataract Surgery, Oral Surgery Female Surgical History: Reports: Hysterectomy Neurological Surgical History: Reports: Laminectomy, Lumbar Spine Oncologic Surgical History: Reports: Bone Marrow Aspiration Dermatological Surgical History: Reports: None Social & Family History - Family History Family Medical History: Noncontributory - Tobacco Use Smoking Status *Q: Current Every Day Smoker Years of Tobacco use: 55 Packs/Tins Daily: 0.3 Used Tobacco, but Quit: No Second Hand Smoke Exposure: No - Caffeine Use Caffeine Use: Reports: Coffee, Soda - Alcohol Use Days Per Week of Alcohol Use: 0 - Recreational Drug Use Recreational Drug Use: No ED ROS GENERAL - Review of Systems Review Of Systems: ROS reveals no pertinent complaints other than HPI. - Physical Exam Exam: See Below Course - Vital Signs Last Recorded V/S: Last Vital Signs Temp 38.4 C H 12/27/16 19:51 Pulse 93 12/27/16 19:51 Resp 16 12/27/16 19:51 BP 148/66 H 12/27/16 19:51 Pulse Ox 95 12/27/16 19:51 - Orders/Labs/Meds Orders: Active Orders 24 hr Category Date Time Status Chest 1V Frontal [CR] Stat Exams 12/27/16 20:42 Taken Head wo Cont [CT] Stat Exams 12/27/16 20:41 Taken CULTURE BLOOD [BC] Stat Lab 12/27/16 20:40 Received CULTURE BLOOD [BC] Stat Lab 12/27/16 20:50 Received CULTURE URINE [RM] Stat Lab 12/27/16 22:30 Received Sodium Chloride 0.9% [Normal Saline] 1,000 ml Med 12/27/16 20:45 Active IV ASDIRECTED Medication Orders Sodium Chloride (Normal Saline) 1,000 mls @ 250 mls/hr IV ASDIRECTED AUGUSTINE Last Admin: 12/27/16 21:29 Dose: 250 mls/hr Labs: Laboratory Tests 12/27/16 12/27/16 12/27/16 Range/Units 20:41 20:41 20:42 WBC 19.5 H (4.5-11.0) K/uL RBC 2.60 L (3.30-5.50) M/uL Hgb 11.4 L (12.0-15.0) g/dL Hct 27.5 L (36.0-48.0) % MCV 106 H (80-98) fL MCH 44 H (27-31) pg MCHC 42 H (32-36) % Plt Count 255 (150-400) K/uL Neut % (Auto) 86 H (36-66) % Lymph % (Auto) 6 L (24-44) % [place] % (Auto) 8 H (2-6) % Eos % (Auto) 0 L (2-4) % Baso % (Auto) 0 (0-1) % Sodium 137 L (140-148) mmol/L Potassium 3.7 (3.6-5.2) mmol/L Chloride 104 (100-108) mmol/L Carbon Dioxide 22 (21-32) mmol/L Anion Gap 14.7 H (5.0-14.0) mmol/L BUN 18 (7-18) mg/dL Creatinine 1.5 H (0.6-1.0) mg/dL Est Cr Clr Drug Dosing 29.16 mL/min Estimated GFR (MDRD) 34 L (>60) Glucose 121 H (74-106) mg/dL Lactic Acid (0.4-2.0) mmol/L Calcium 8.4 L (8.5-10.1) mg/dL Total Bilirubin 0.7 D (0.2-1.0) mg/dL AST 20 (15-37) U/L ALT 15 (12-78) U/L Alkaline Phosphatase 105 (46-116) U/L C-Reactive Protein 9.27 H (0.0-0.3) mg/dL Total Protein 7.4 (6.4-8.2) g/dL Albumin 3.1 L (3.4-5.0) g/dL Globulin 4.3 H (2.3-3.5) g/dL Albumin/Globulin Ratio 0.7 L (1.2-2.2) Amylase 39 (25-115) U/L Lipase 151 (73-393) U/L Urine Color Urine Appearance Urine pH (4.5-8.0) Ur Specific Stanton (1.008-1.030) Urine Protein (NEGATIVE) mg/dL Urine Glucose (UA) (NEGATIVE) mg/dL Urine Ketones (NEGATIVE) mg/dL Urine Occult Blood (NEGATIVE) Urine Nitrite (NEGATIVE) Urine Bilirubin (NEGATIVE) Urine Urobilinogen (NORMAL) mg/dL Ur Leukocyte Esterase (NEGATIVE) Urine WBC (0-5) Amorphous Sediment Urine Bacteria Urine Mucus 12/27/16 12/27/16 Range/Units 20:42 22:34 WBC (4.5-11.0) K/uL RBC (3.30-5.50) M/uL Hgb (12.0-15.0) g/dL Hct (36.0-48.0) % MCV (80-98) fL MCH (27-31) pg MCHC (32-36) % Plt Count (150-400) K/uL Neut % (Auto) (36-66) % Lymph % (Auto) (24-44) % [place] % (Auto) (2-6) % Eos % (Auto) (2-4) % Baso % (Auto) (0-1) % Sodium (140-148) mmol/L Potassium (3.6-5.2) mmol/L Chloride (100-108) mmol/L Carbon Dioxide (21-32) mmol/L Anion Gap (5.0-14.0) mmol/L BUN (7-18) mg/dL Creatinine (0.6-1.0) mg/dL Est Cr Clr Drug Dosing mL/min Estimated GFR (MDRD) (>60) Glucose (74-106) mg/dL Lactic Acid 1.4 (0.4-2.0) mmol/L Calcium (8.5-10.1) mg/dL Total Bilirubin (0.2-1.0) mg/dL AST (15-37) U/L ALT (12-78) U/L Alkaline Phosphatase (46-116) U/L C-Reactive Protein (0.0-0.3) mg/dL Total Protein (6.4-8.2) g/dL Albumin (3.4-5.0) g/dL Globulin (2.3-3.5) g/dL Albumin/Globulin Ratio (1.2-2.2) Amylase (25-115) U/L Lipase (73-393) U/L Urine Color Yellow Urine Appearance Cloudy Urine pH 6.0 (4.5-8.0) Ur Specific Stanton 1.010 (1.008-1.030) Urine Protein 100 H (NEGATIVE) mg/dL Urine Glucose (UA) Normal (NEGATIVE) mg/dL Urine Ketones Negative (NEGATIVE) mg/dL Urine Occult Blood Large (NEGATIVE) Urine Nitrite Negative (NEGATIVE) Urine Bilirubin Negative (NEGATIVE) Urine Urobilinogen Normal (NORMAL) mg/dL Ur Leukocyte Esterase Large (NEGATIVE) Urine WBC Packed H (0-5) Amorphous Sediment Not seen Urine Bacteria Many Urine Mucus Not seen Meds: Medications Generic Name Dose Route Start Last Admin Trade Name Freq PRN Reason Stop Dose Admin Sodium Chloride 1,000 mls @ 250 mls/hr 12/27/16 20:45 12/27/16 21:29 Normal Saline IV 250 mls/hr ASDIRECTED AUGUSTINE Administration Departure - Departure Time of Disposition: 23:49 Disposition: Admitted As Inpatient 67 Condition: Fair Clinical Impression: Pyelonephritis - Discharge Information Forms: ED Department Discharge - My Orders Last 24 Hours: My Active Orders 12/27/16 20:40 CULTURE BLOOD [BC] Stat 12/27/16 20:41 Head wo Cont [CT] Stat 12/27/16 20:42 Chest 1V Frontal [CR] Stat 12/27/16 20:45 Sodium Chloride 0.9% [Normal Saline] 1,000 ml IV ASDIRECTED 12/27/16 20:50 CULTURE BLOOD [BC] Stat 12/27/16 22:30 CULTURE URINE [RM] Stat - Assessment/Plan Last 24 Hours: My Active Orders 12/27/16 20:40 CULTURE BLOOD [BC] Stat 12/27/16 20:41 Head wo Cont [CT] Stat 12/27/16 20:42 Chest 1V Frontal [CR] Stat 12/27/16 20:45 Sodium Chloride 0.9% [Normal Saline] 1,000 ml IV ASDIRECTED 12/27/16 20:50 CULTURE BLOOD [BC] Stat 12/27/16 22:30 CULTURE URINE [RM] Stat
[2016-12-28] MEDS ORDERED: Albuterol 0.083% 2.5 MG/3 ML Neb Soln NEB PRN (00:24)
[2016-12-28] MEDS ORDERED: Ondansetron 4 MG Tab.DIS PO PRN (00:24)
[2016-12-28] MEDS ORDERED: Docusate Sodium 100 MG Cap PO PRN (00:24)
--- NOTE | 2016-12-28 00:43 | PCM.HP ---
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 Patient tried to get out of the car at the time suddenly loss of balance and had near syncope episode. With this concerns patient came to the ED accompanied with her grand daughter. In the ED patient received thousand ML of bolus. Patient reports that she had last urinary tract infection one month ago which was successfully treated with augmentin medication. Patient is going to evaluated by urology on 01/03/2017 for possible urinary bladder Mass. Patient states that she has been suffering with urinary frequency associated with incomplete emptying of bladder. Patient workup showed WBC count elevated associated with sinusitis. Patient streptococcal throat culture is positive. Patient denies any recent fevers but complaining of intermittent cough associate with the sputum. Patient smokes 7-8 cigarettes a day. Patient denies any chest pains, exertional chest pains, breathing difficulty. Patient is maintaining saturation on room air. Patient lactic acid within normal limit but creatinine is elevated with 1.5. Baseline creatinine is 1.1. Patient has been taking Eliquis and sotolol medication for atrial fibrillation following with outpatient cardiology. Patient is Full code. Other review of systems are not significant Onset of Symptoms: Reports: Today posterior JULIO Pain Score (Numeric/FACES): 3 - Related Data Allergies/Adverse Reactions: Allergies Allergy/AdvReac Type Severity Reaction Status Date / Time diclofenac [From Voltaren] Allergy Cannot Verified 12/27/16 19:43 Remember tramadol Allergy Cannot Verified 12/27/16 19:43 Remember aspirin AdvReac Intermediate Syncope Verified 12/27/16 19:43 ibuprofen AdvReac Intermediate Syncope Verified 12/27/16 19:43 Home Medications: Home Meds Losartan [Cozaar] 50 tab PO DAILY 04/30/15 [History] atorvaSTATin [Lipitor] 40 mg PO BEDTIME #30 tablet 05/01/15 [Rx] Albuterol [Ventolin HFA] 1 puff .XX Q4H PRN 09/26/15 [History] Apixaban [Eliquis] 5 mg PO BID 09/26/15 [History] Calcium Carbonate/Vitamin D3 [Calcium 600-Vit D3 400 Tablet] 1 tab PO BID [History] Magnesium Oxide 400 mg PO BID 09/26/15 [History] Cholecalciferol (Vitamin D3) [Vitamin D3] 1,000 units PO DAILY 11/29/15 [History ] Cyanocobalamin (Vitamin B-12) [B-12] 500 mcg PO DAILY 11/29/15 [History] Docusate Sodium [Colace] 100 mg PO BID 11/29/15 [History] Ipratropium [Atrovent HFA] 2 puff IH QID 11/29/15 [History] Loratadine 10 mg PO DAILY 11/29/15 [History] Polyethylene Glycol 3350 [Miralax] 17 gm PO ASDIRECTED 11/29/15 [History] Spironolactone [Aldactone] 25 mg PO DAILY 11/29/15 [History] Multivitamins [Tab-A-Sarah] 1 tab PO DAILY 01/02/16 [History] Sodium Chloride [Deep Sea] 1 - 2 spray NASBOTH ASDIRECTED 01/02/16 [History] Pantoprazole [ProTONIX] 40 mg PO DAILY 01/04/16 [History] Sotalol HCl [Sotalol] 80 mg PO BID 06/16/16 [History] Cyclobenzaprine [Flexeril] 5 mg PO BEDTIME 12/27/16 [History] Hydrocodone/Acetaminophen [Hydrocodon-Acetaminophen 5-325] 1 tab PO Q6H PRN 08/10 [History] Past Medical History HEENT History: Reports: Allergic Rhinitis, Cataract, Impaired Vision Cardiovascular History: Reports: Afib, Heart Murmur, High Cholesterol, Hypertension Respiratory History: Reports: Bronchitis, Recurrent, COPD, Pneumonia, Recurrent Gastrointestinal History: Reports: Chronic Constipation, Gastritis, GERD Genitourinary History: Reports: Renal Calculus, UTI, Recurrent [employer]IST History: Reports: Dysfunctional Uterine Bleeding, Musculoskeletal History: Reports: Arthritis, Back Pain, Chronic, Osteoarthritis , RA Neurological History: Reports: CVA, Migraines, Vertigo Psychiatric History: Reports: Depression Endocrine/Metabolic History: Reports: Vitamin D Deficiency Hematologic History: Reports: Anemia, B12 Deficiency, Blood Transfusion(s), Iron Deficiency, Other (See Below) 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, cold agglutinin Immunologic History: Reports: None Oncologic (Cancer) History: Reports: Lymphoma Dermatologic History: Reports: None - Infectious Disease History Infectious Disease History: Reports: Chicken Pox, Measles, Mumps - Past Surgical History Head Surgeries/Procedures: Reports: None HEENT Surgical History: Reports: Cataract Surgery, Oral Surgery Female Surgical History: Reports: Hysterectomy Neurological Surgical History: Reports: Laminectomy, Lumbar Spine Oncologic Surgical History: Reports: Bone Marrow Aspiration Dermatological Surgical History: Reports: None Social & Family History - Family History Family Medical History: Noncontributory - Tobacco Use Smoking Status *Q: Current Every Day Smoker Years of Tobacco use: 55 Packs/Tins Daily: 0.3 Used Tobacco, but Quit: No Second Hand Smoke Exposure: No - Caffeine Use Caffeine Use: Reports: Coffee, Soda - Alcohol Use Days Per Week of Alcohol Use: 0 - Recreational Drug Use Recreational Drug Use: No H&P Review of Systems - Review of Systems: Review Of Systems: See Below General: Reports: Malaise, Weakness, Fatigue. Denies: Fever, Chills, Decreased Appetite, Weight Loss Pulmonary: Reports: Shortness of Breath, Cough, Sputum. Denies: Wheezing, Pleuritic Chest Pain, Hemoptysis Cardiovascular: Denies: Chest Pain, Palpitations, Dyspnea on Exertion, Orthopnea , PND, Edema Gastrointestinal: Reports: Nausea, Vomiting. Denies: Abdominal Pain, Anorexia Genitourinary: Reports: Frequency, Retention. Denies: Dysuria, Pain, Hematuria Musculoskeletal: Denies: Neck Pain, Shoulder Pain Skin: Denies: Cyanosis Psychiatric: Reports: Confusion. Denies: Depression, Mood Lability, Agitation, Hallucinations Neurological: Reports: Confusion, Dizziness, Headache Hematologic/Lymphatic: Denies: Anemia, Easy Bleeding Exam - Exam Exam: See Below - Vital Signs Vital Signs: Last Vital Signs Temp 38.4 C H 12/27/16 19:51 Pulse 93 12/27/16 19:51 Resp 16 12/27/16 19:51 BP 148/66 H 12/27/16 19:51 Pulse Ox 95 12/27/16 19:51 Weight: 68.039 kg - Exam Quality Assessment: Supplemental Oxygen General: Alert, Oriented HEENT: PERRLA, Conjunctiva Clear Neck: Supple, Trachea Midline Lungs: Clear to Auscultation, Normal Respiratory Effort Cardiovascular: No: Regular Rate, Regular Rhythm GI/Abdominal Exam: Normal Bowel Sounds, Soft, Non-Tender, No Organomegaly Back Exam: Normal Inspection, Full Range of Motion Extremities: Normal Inspection, Normal Range of Motion Skin: Warm, Dry, Intact Neurological: Cranial Nerves Intact, Reflexes Equal Bilateral Neuro Extensive - Mental Status: Alert, Oriented x3 Neuro Extensive - Motor, Sensory, Reflexes: Normal Gait, Normal Reflexes - Patient Data Lab Results Last 24 hrs: Laboratory Results - last 24 hr 12/27/16 12/27/16 12/27/16 Range/Units 20:41 20:41 20:42 WBC 19.5 H (4.5-11.0) K/uL RBC 2.60 L (3.30-5.50) M/uL Hgb 11.4 L (12.0-15.0) g/dL Hct 27.5 L (36.0-48.0) % MCV 106 H (80-98) fL MCH 44 H (27-31) pg MCHC 42 H (32-36) % Plt Count 255 (150-400) K/uL Neut % (Auto) 86 H (36-66) % Lymph % (Auto) 6 L (24-44) % [place] % (Auto) 8 H (2-6) % Eos % (Auto) 0 L (2-4) % Baso % (Auto) 0 (0-1) % Sodium 137 L (140-148) mmol/L Potassium 3.7 (3.6-5.2) mmol/L Chloride 104 (100-108) mmol/L Carbon Dioxide 22 (21-32) mmol/L Anion Gap 14.7 H (5.0-14.0) mmol/L BUN 18 (7-18) mg/dL Creatinine 1.5 H (0.6-1.0) mg/dL Est Cr Clr Drug Dosing 29.16 mL/min Estimated GFR (MDRD) 34 L (>60) Glucose 121 H (74-106) mg/dL Lactic Acid (0.4-2.0) mmol/L Calcium 8.4 L (8.5-10.1) mg/dL Total Bilirubin 0.7 D (0.2-1.0) mg/dL AST 20 (15-37) U/L ALT 15 (12-78) U/L Alkaline Phosphatase 105 (46-116) U/L C-Reactive Protein 9.27 H (0.0-0.3) mg/dL Total Protein 7.4 (6.4-8.2) g/dL Albumin 3.1 L (3.4-5.0) g/dL Globulin 4.3 H (2.3-3.5) g/dL Albumin/Globulin Ratio 0.7 L (1.2-2.2) Amylase 39 (25-115) U/L Lipase 151 (73-393) U/L Urine Color Urine Appearance Urine pH (4.5-8.0) Ur Specific Ald[place] (1.008-1.030) Urine Protein (NEGATIVE) mg/dL Urine Glucose (UA) (NEGATIVE) mg/dL Urine Ketones (NEGATIVE) mg/dL Urine Occult Blood (NEGATIVE) Urine Nitrite (NEGATIVE) Urine Bilirubin (NEGATIVE) Urine Urobilinogen (NORMAL) mg/dL Ur Leukocyte Esterase (NEGATIVE) Urine WBC (0-5) Amorphous Sediment Urine Bacteria Urine Mucus 12/27/16 12/27/16 Range/Units 20:42 22:34 WBC (4.5-11.0) K/uL RBC (3.30-5.50) M/uL Hgb (12.0-15.0) g/dL Hct (36.0-48.0) % MCV (80-98) fL MCH (27-31) pg MCHC (32-36) % Plt Count (150-400) K/uL Neut % (Auto) (36-66) % Lymph % (Auto) (24-44) % [place] % (Auto) (2-6) % Eos % (Auto) (2-4) % Baso % (Auto) (0-1) % Sodium (140-148) mmol/L Potassium (3.6-5.2) mmol/L Chloride (100-108) mmol/L Carbon Dioxide (21-32) mmol/L Anion Gap (5.0-14.0) mmol/L BUN (7-18) mg/dL Creatinine (0.6-1.0) mg/dL Est Cr Clr Drug Dosing mL/min Estimated GFR (MDRD) (>60) Glucose (74-106) mg/dL Lactic Acid 1.4 (0.4-2.0) mmol/L Calcium (8.5-10.1) mg/dL Total Bilirubin (0.2-1.0) mg/dL AST (15-37) U/L ALT (12-78) U/L Alkaline Phosphatase (46-116) U/L C-Reactive Protein (0.0-0.3) mg/dL Total Protein (6.4-8.2) g/dL Albumin (3.4-5.0) g/dL Globulin (2.3-3.5) g/dL Albumin/Globulin Ratio (1.2-2.2) Amylase (25-115) U/L Lipase (73-393) U/L Urine Color Yellow Urine Appearance Cloudy Urine pH 6.0 (4.5-8.0) Ur Specific Ald[place] 1.010 (1.008-1.030) Urine Protein 100 H (NEGATIVE) mg/dL Urine Glucose (UA) Normal (NEGATIVE) mg/dL Urine Ketones Negative (NEGATIVE) mg/dL Urine Occult Blood Large (NEGATIVE) Urine Nitrite Negative (NEGATIVE) Urine Bilirubin Negative (NEGATIVE) Urine Urobilinogen Normal (NORMAL) mg/dL Ur Leukocyte Esterase Large (NEGATIVE) Urine WBC Packed H (0-5) Amorphous Sediment Not seen Urine Bacteria Many Urine Mucus Not seen Result Diagrams: 12/28/16 05:50 12/28/16 05:50 Earnest Results Last 24 hrs: Microbiology 12/27/16 21:47 Group A Streptococcus Rapid Screen - Final Throat Positive Strep A Screen *Q Meaningful Use (ADM) - VTE *Q VTE Criteria *Q: - Stroke *Q Stroke Criteria *Q: - AMI *Q AMI Criteria *Q: - Problem List (1) Altered mental state SNOMED Code(s): 322040807 ICD Code: R41.82 - ALTERED MENTAL STATUS, UNSPECIFIED Status: Acute Current Visit: Yes (2) Confusion SNOMED Code(s): 094614394 ICD Code: R41.0 - DISORIENTATION, UNSPECIFIED Status: Acute Current Visit : Yes (3) Recurrent UTI SNOMED Code(s): 544674767 ICD Code: N39.0 - URINARY TRACT INFECTION, SITE NOT SPECIFIED Status: Acute Current Visit: Yes (4) Sinusitis SNOMED Code(s): 32690519 ICD Code: J32.9 - CHRONIC SINUSITIS, UNSPECIFIED Status: Acute Current Visit: Yes (5) Strep pharyngitis SNOMED Code(s): 44244443, 498365792 ICD Code: J02.0 - STREPTOCOCCAL PHARYNGITIS Status: Acute Current Visit: Yes (6) Afib SNOMED Code(s): 90738001 ICD Code: I48.91 - UNSPECIFIED ATRIAL FIBRILLATION Status: Acute Current Visit: Yes (7) CHF (congestive heart failure) SNOMED Code(s): 04484469 ICD Code: I50.9 - HEART FAILURE, UNSPECIFIED Status: Acute Current Visit : Yes (8) Hypertension SNOMED Code(s): 24773198 ICD Code: I10 - ESSENTIAL (PRIMARY) HYPERTENSION Status: Acute Current Visit: Yes (9) Hyperlipemia SNOMED Code(s): 74200099 ICD Code: E78.5 - HYPERLIPIDEMIA, UNSPECIFIED Status: Acute Current Visit : Yes (10) GERD (gastroesophageal reflux disease) SNOMED Code(s): 430072277 ICD Code: K21.9 - GASTRO-ESOPHAGEAL REFLUX DISEASE WITHOUT ESOPHAGITIS Status: Acute Current Visit: Yes (11) Hypotension SNOMED Code(s): 52949457 ICD Code: I95.9 - HYPOTENSION, UNSPECIFIED Status: Acute Current Visit: Yes (12) Hypomagnesemia SNOMED Code(s): 079112164 ICD Code: E83.42 - HYPOMAGNESEMIA Status: Acute Current Visit: Yes (13) Lymphoma SNOMED Code(s): 134113594 ICD Code: C85.90 - NON-HODGKIN LYMPHOMA, UNSPECIFIED, UNSPECIFIED SITE Status: Acute Current Visit: Yes (14) Mass of urinary bladder determined by ultrasound SNOMED Code(s): 857702575, 704092646 ICD Code: N32.89 - OTHER SPECIFIED DISORDERS OF BLADDER Status: Acute Current Visit: Yes (15) Acute cystitis with positive culture SNOMED Code(s): 643348942 ICD Code: N30.00 - ACUTE CYSTITIS WITHOUT HEMATURIA Status: Acute Current Visit: Yes (16) Sepsis SNOMED Code(s): 60843752 ICD Code: A41.9 - SEPSIS, UNSPECIFIED ORGANISM Status: Acute Current Visit: Yes Qualifiers: Sepsis type: sepsis due to unspecified organism Qualified Code(s): A41.9 - Sepsis, unspecified organism Problem List Initiated/Reviewed/Updated: Yes Orders Last 24hrs: Active Orders 24 hr Category Date Time Status Patient Status [ADT] Routine ADT 12/28/16 00:24 Ordered Bedrest Bathroom Privileges [RC] ASDIRECTED Care 12/28/16 00:24 Ordered EKG Documentation Completion [RC] ASDIRECTED Care 12/28/16 00:29 Ordered Height and Weight [RC] DAILY Care 12/28/16 00:24 Ordered Intake and Output [RC] QSHIFT Care 12/28/16 00:26 Ordered Oxygen Therapy [RC] PRN Care 12/28/16 00:24 Ordered Pulse Oximetry [RC] PRN Care 12/28/16 00:26 Ordered RT Aerosol Therapy [RC] ASDIRECTED Care 12/28/16 00:29 Ordered VTE/DVT Education [RC] Per Unit Routine Care 12/28/16 00:24 Ordered Vital Signs [RC] Q4H Care 12/28/16 00:24 Ordered OT Evaluation and Treatment [CONS] Routine Cons 12/28/16 00:24 Ordered PT Evaluation and Treatment [CONS] Routine Cons 12/28/16 00:24 Ordered Clear Liquid Diet [DIET] Diet 12/28/16 Breakfast Ordered Chest 1V Frontal [CR] Stat Exams 12/27/16 20:42 Taken Head wo Cont [CT] Stat Exams 12/27/16 20:41 Taken BASIC METABOLIC PANEL,BMP [CHEM] AM Lab 12/28/16 05:11 Ordered CBC WITH AUTO DIFF [HEME] AM Lab 12/28/16 05:11 Ordered CULTURE BLOOD [BC] Stat Lab 12/27/16 20:40 Received CULTURE BLOOD [BC] Stat Lab 12/27/16 20:50 Received CULTURE URINE [RM] Stat Lab 12/27/16 22:30 Received MAGNESIUM [CHEM] Routine Lab 12/28/16 00:24 Ordered Acetaminophen [Tylenol] Med 12/28/16 00:24 Ordered 650 mg PO Q4H PRN Albuterol [Proventil Neb Soln] Med 12/28/16 00:24 Ordered 2.5 mg NEB Q4H PRN Docusate Sodium [Colace] Med 12/28/16 00:24 Ordered 100 mg PO BID PRN Nicotine [Habitrol] Med 12/28/16 09:00 Ordered 14 mg TRDERM DAILY Ondansetron [Zofran ODT] Med 12/28/16 00:24 Ordered 4 mg PO Q6H PRN Sodium Chloride 0.9% @ 100 MLS/HR(1,000ml) Med 12/28/16 00:45 Ordered Sodium Chloride 0.9% [Normal Saline] 1,000 ml IV ASDIRECTED Sodium Chloride 0.9% [Normal Saline] 1,000 ml Med 12/27/16 20:45 Active IV ASDIRECTED cefTRIAXone [Rocephin] 2 gm Med 12/28/16 00:45 Ordered Sodium Chloride 0.9% [Normal Saline] 50 ml IV Q24H Resuscitation Status Routine Resus Stat 12/28/16 00:24 Ordered EKG 12 Lead [EK] Routine Ther 12/28/16 00:24 Ordered Medication Orders Acetaminophen (Tylenol) 650 mg PO Q4H PRN PRN Reason: Pain (Mild 1-3)/fever Albuterol (Proventil Neb Soln) 2.5 mg NEB Q4H PRN PRN Reason: Shortness Of Breath/wheezing Docusate Sodium (Colace) 100 mg PO BID PRN PRN Reason: Constipation Sodium Chloride (Normal Saline) 1,000 mls @ 250 mls/hr IV ASDIRECTED [facility] Last Admin: 12/27/16 21:29 Dose: 250 mls/hr Ceftriaxone Sodium 2 gm/ (Sodium Chloride) 50 mls @ 100 mls/hr IV Q24H AUGUSTINE Sodium Chloride (Normal Saline) 1,000 mls @ 100 mls/hr IV ASDIRECTED [facility] Nicotine (Habitrol) 14 mg TRDERM DAILY [facility] Ondansetron HCl (Zofran Odt) 4 mg PO Q6H PRN PRN Reason: Nausea able to take PO Assessment/Plan Comment:: (1) Altered mental state (2) Confusion (16) Sepsis (4) Sinusitis (5) Strep pharyngitis (3) Recurrent UTI (14) Mass of urinary bladder determined by ultrasound (15) Acute cystitis with positive culture workup showed cystitis associated with sinusitis with Group B streptococcal positive WBC count is elevated will treat with Ceftriaxone 2 gram once daily will repeat CBC tomorrow will follow urine culture, blood culture reports patient EKG showed sinus rhythm Patient is alert and oriented patient is going to follow with urology on 01/03/17 for urinary bladder mass defer to out pt management (6) Afib (7) CHF (congestive heart failure) (8) Hypertension (9) Hyperlipemia (11) Hypotension EKG showed sinus rhythm with the rate control patient had hypotensive episodes received 2 lit bolus at midnight patient had pulmonary edema due to fluid overload and treated with IV furosemide 40 mg one time dose will repeat lactic acid and ordered BMP will follow the results and change the management accordingly continue home blood pressure medications patient is a smoker placed nicotine patch, Duoneb Scheduled (12) Hypomagnesemia treated with 2 grm magnesium one time dose will repeat medication tomorrow (13) Lymphoma will continue conservative management differ outpatient management (10) GERD (gastroesophageal reflux disease) PAntop 40 mg daily DVT prophylaxis Elliquis iv FLuids: stoppered due to pulmonary edema G.I. prophylaxis pantoprazole code status full code diet liquid diet and advance as tolerated
[2016-12-28] MEDS ORDERED: Sodium Chloride 0.9% 1,000 ML IV SCH ×2 (00:45→10:00)
[2016-12-28] MEDS ORDERED: cefTRIAXone 2 GM in Sodium Chloride 0.9% 50 ML IV SCH (01:00)
[2016-12-28] MEDS ORDERED: Sodium Chloride 0.9% 500 ML IV ONE ×2 (02:12→02:47)
[2016-12-28] MEDS ORDERED: Dextrose 5% in Water 250 ML ONE (04:13)
[2016-12-28] MEDS ORDERED: Norepinephrine 4 MG in Dextrose 5% in Water 246 ML IV SCH ×2 (04:15)
[2016-12-28] MEDS ORDERED: Magnesium Sulfate/Water 2 GM in Premix Bag 1 BAG IV ONE (04:55)
[2016-12-28] MEDS ORDERED: Albuterol/Ipratropium 3.0-0.5 MG/3 ML Neb Soln NEB ONE (05:46)
[2016-12-28] MEDS ORDERED: Morphine 2 MG/ML Syringe IVPUSH ONE (06:04)
[2016-12-28] MEDS ORDERED: Furosemide 40 MG/4 ML VIAL IVPUSH ONE (06:31)
[2016-12-28] MEDS: Albuterol/Ipratropium 3.0-0.5 MG/3 ML Neb Soln NEB SCH ×4 (07:06→20:48)
[2016-12-28] MEDS: Acetaminophen 325 MG Tab PO PRN (09:06)
--- NOTE | 2016-12-28 09:39 | CR ---
Heart size upper limits of normal. No focal consolidation. Stable chest compared to 12/10/2016
--- NOTE | 2016-12-28 09:40 | CR ---
Mild cardiomegaly. Interval development of diffuse interstitial process throughout both lungs should indicate interstitial pulmonary edema.
[2016-12-28] MEDS ORDERED: Acetaminophen/HYDROcodone 325-5 MG Tab PO PRN (09:47)
--- NOTE | 2016-12-28 09:52 | PCM.PN ---
- General Info Date of Service: 12/28/16 Functional Status: Reports: Pain Controlled. Denies: Ambulating - Review of Systems General: Reports: Weakness Pulmonary: Reports: Shortness of Breath Gastrointestinal: Denies: Abdominal Pain Systems Review Comment:: difficulty with hypotension overnight and patient developed pulmonary edema after fluid challenges. Still hypotensive this morning but feeling better as far as her respiratory status after a dose of furosemide. No complaints of abdominal pain. She feels unwell in a general sense but does not have myalgias, nausea or vomiting. Urine culture is growing a gram-negative idalmis. - Patient Data Vitals - Most Recent: Last Vital Signs Temp 38.1 C 12/28/16 09:06 Pulse 94 12/28/16 09:00 Resp 23 H 12/28/16 09:00 BP 107/37 L 12/28/16 09:00 Pulse Ox 96 12/28/16 09:00 Weight - Most Recent: 96 kg I&O - Last 24 Hours: Intake & Output 12/27/16 12/28/16 12/28/16 22:59 06:59 14:59 Intake Total 1803 Output Total 500 800 Balance 1303 -800 Lab Results Last 24 Hours: Laboratory Results - last 24 hr 12/28/16 12/28/16 12/28/16 Range/Units 05:00 05:00 05:50 WBC 4.4 L (4.5-11.0) K/uL RBC 3.46 (3.30-5.50) M/uL Hgb 11.3 L (12.0-15.0) g/dL Hct 34.5 L (36.0-48.0) % MCV 100 H (80-98) fL MCH 33 H (27-31) pg MCHC 33 (32-36) % Plt Count 246 (150-400) K/uL Neut % (Auto) 74 H (36-66) % Lymph % (Auto) 24 (24-44) % [place] % (Auto) 1 L (2-6) % Eos % (Auto) 0 L (2-4) % Baso % (Auto) 1 (0-1) % Sodium (140-148) mmol/L Potassium (3.6-5.2) mmol/L Chloride (100-108) mmol/L Carbon Dioxide (21-32) mmol/L Anion Gap (5.0-14.0) mmol/L BUN (7-18) mg/dL Creatinine (0.6-1.0) mg/dL Est Cr Clr Drug Dosing mL/min Estimated GFR (MDRD) (>60) Glucose (74-106) mg/dL Lactic Acid 2.9 H (0.4-2.0) mmol/L Calcium (8.5-10.1) mg/dL Magnesium (1.8-2.4) mg/dL Troponin I < 0.017 (0.000-0.056) ng/mL [id number]-[id number] Pept (5-450) pg/mL 12/28/16 12/28/16 12/28/16 Range/Units 05:50 06:20 08:05 WBC (4.5-11.0) K/uL RBC (3.30-5.50) M/uL Hgb (12.0-15.0) g/dL Hct (36.0-48.0) % MCV (80-98) fL MCH (27-31) pg MCHC (32-36) % Plt Count (150-400) K/uL Neut % (Auto) (36-66) % Lymph % (Auto) (24-44) % [place] % (Auto) (2-6) % Eos % (Auto) (2-4) % Baso % (Auto) (0-1) % Sodium 142 (140-148) mmol/L Potassium 4.1 (3.6-5.2) mmol/L Chloride 109 H (100-108) mmol/L Carbon Dioxide 21 (21-32) mmol/L Anion Gap 16.1 H (5.0-14.0) mmol/L BUN 18 (7-18) mg/dL Creatinine 1.5 H (0.6-1.0) mg/dL Est Cr Clr Drug Dosing 29.11 mL/min Estimated GFR (MDRD) 34 L (>60) Glucose 111 H (74-106) mg/dL Lactic Acid (0.4-2.0) mmol/L Calcium 7.6 L (8.5-10.1) mg/dL Magnesium 1.8 1.9 (1.8-2.4) mg/dL Troponin I (0.000-0.056) ng/mL [id number]-P-Zevmdxcvfjn Pept 1614 H (5-450) pg/mL Med Orders - Current: Current Medications Acetaminophen (Tylenol) 650 mg PO Q4H PRN PRN Reason: Pain (Mild 1-3)/fever Last Admin: 12/28/16 09:06 Dose: 650 mg Albuterol (Proventil Neb Soln) 2.5 mg NEB Q4H PRN PRN Reason: Shortness Of Breath/wheezing Last Admin: 12/28/16 05:35 Dose: 2.5 mg Albuterol/Ipratropium (Duoneb 3.0-0.5 Mg/3 Ml) 3 ml NEB QIDRT [facility] Last Admin: 12/28/16 07:06 Dose: Not Given Docusate Sodium (Colace) 100 mg PO BID PRN PRN Reason: Constipation Norepinephrine Bitartrate 4 mg (/ Dextrose/Water) 250 mls @ 7.5 mls/hr IV TITRATE [facility]; 2 MCG/MIN PRN Reason: Protocol Last Titration: 12/28/16 05:22 Dose: 0 mcg/min, 0 mls/hr Ceftriaxone Sodium 2 gm/ (Sodium Chloride) 50 mls @ 100 mls/hr IV Q24H [facility] Nicotine (Habitrol) 14 mg TRDERM DAILY [facility] Ondansetron HCl (Zofran Odt) 4 mg PO Q6H PRN PRN Reason: Nausea able to take PO Last Admin: 12/28/16 07:00 Dose: 4 mg Discontinued Medications Albuterol/Ipratropium (Duoneb 3.0-0.5 Mg/3 Ml) 3 ml NEB ONETIME ONE Stop: 12/28/16 05:47 Last Admin: 12/28/16 05:54 Dose: 3 ml Furosemide (Lasix) 40 mg IVPUSH ONETIME ONE Stop: 12/28/16 06:32 Last Admin: 12/28/16 06:46 Dose: 40 mg Sodium Chloride (Normal Saline) 1,000 mls @ 250 mls/hr IV ASDIRECTED [facility] Last Admin: 12/27/16 21:29 Dose: 250 mls/hr Ceftriaxone Sodium 2 gm/ (Sodium Chloride) 50 mls @ 100 mls/hr IV Q24H [facility] Last Admin: 12/28/16 01:46 Dose: 100 mls/hr Sodium Chloride (Normal Saline) 1,000 mls @ 150 mls/hr IV ASDIRECTED [facility] Sodium Chloride (Normal Saline) 500 mls @ 1,000 mls/hr IV .BOLUS ONE Stop: 12/28/16 02:41 Last Admin: 12/28/16 02:26 Dose: 1,000 mls/hr Sodium Chloride (Normal Saline) 500 mls @ 1,500 mls/hr IV .BOLUS ONE Stop: 12/28/16 03:06 Last Admin: 12/28/16 03:04 Dose: 1,500 mls/hr Dextrose/Water (Dextrose 5% In Water) Confirm Administered Dose 250 mls @ as directed .ROUTE .STK-MED ONE Stop: 12/28/16 04:14 Last Admin: 12/28/16 04:27 Dose: Not Given Magnesium Sulfate 2 gm/ Premix 50 mls @ 12.5 mls/hr IV ONETIME ONE Stop: 12/28/16 08:54 Last Admin: 12/28/16 05:20 Dose: 12.5 mls/hr Morphine Sulfate (Morphine) 2 mg IVPUSH ONETIME ONE Stop: 12/28/16 06:05 Last Admin: 12/28/16 06:19 Dose: 2 mg - Exam Quality Assessment: Supplemental Oxygen General: Alert, Oriented, Cooperative, Mild Distress Neck: Supple Lungs: Clear to Auscultation, Normal Respiratory Effort, Decreased Breath Sounds (mild at bases) Cardiovascular: Regular Rate, Regular Rhythm, Murmurs GI/Abdominal Exam: Normal Bowel Sounds, Soft, Non-Tender, No Distention Extremities: Normal Inspection, No Pedal Edema. No: Increased Warmth Peripheral Pulses: 2+: Dorsalis Pedis (L), Dorsalis Pedis (R) Skin: Warm, Dry Psy/Mental Status: Alert, Normal Affect - Problem List & Annotations (1) Acute cystitis with positive culture SNOMED Code(s): 149558283 Code(s): N30.00 - ACUTE CYSTITIS WITHOUT HEMATURIA Status: Acute Current Visit: Yes (2) Sepsis SNOMED Code(s): 80067476 Code(s): A41.9 - SEPSIS, UNSPECIFIED ORGANISM Status: Acute Current Visit : Yes Qualifiers: Sepsis type: sepsis due to unspecified organism Qualified Code(s): A41.9 - Sepsis, unspecified organism (3) Tobacco dependence SNOMED Code(s): 29768034 Code(s): F17.200 - NICOTINE DEPENDENCE, UNSPECIFIED, UNCOMPLICATED Status: Chronic Current Visit: Yes (4) Atrial fibrillation SNOMED Code(s): 52593573 Code(s): I48.91 - UNSPECIFIED ATRIAL FIBRILLATION Status: Chronic Priority: High Current Visit: No Qualifiers: Atrial fibrillation type: paroxysmal Qualified Code(s): I48.0 - Paroxysmal atrial fibrillation - Problem List Review Problem List Initiated/Reviewed/Updated: Yes - My Orders Last 24 Hours: My Active Orders 12/28/16 09:47 Acetaminophen/HYDROcodone [[place] 325-5 MG] 1 tab PO Q6H PRN 12/28/16 10:00 Apixaban [Eliquis] 5 mg PO BID Pantoprazole [ProTONIX] 40 mg PO DAILY Sodium Chloride 0.9% [Normal Saline] 1,000 ml IV ASDIRECTED Sotalol [Betapace] 80 mg PO BID 12/28/16 15:00 LACTIC ACID [CHEM] Timed 12/28/16 21:00 Docusate Sodium [Colace] 100 mg PO BID atorvaSTATin [Lipitor] 40 mg PO BEDTIME 12/29/16 05:00 BASIC METABOLIC PANEL,BMP [CHEM] Timed CBC W/O DIFF,HEMOGRAM [HEME] Timed (1) - Plan Plan:: Assessment and plan - Acute cystitis with sepsis syndrome - still hypotensive this morning though resuscitation has been complicated by hypotension. Lactic acid level has risen this morning, probably secondary to pulmonary edema and need for diuresis. Urine culture is already growing a gram-negative idalmis. She is not having fevers and clinically looks a little better other than the hypotension. -Gentle IV fluids to try to avoid recurrence of pulmonary edema -Continue current antibiotics -Dose of hydrocortisone -Restart vasopressors if she is unresponsive to fluids -Follow-up cultures Paroxysmal atrial fibrillation - on chronic therapy with sotalol and is anticoagulated. -Hold sotalol with hypotension -Continue anticoagulation COPD - no evidence for acute exacerbation at this time. -As needed nebulizers Tobacco dependence - she is currently interested in nicotine patch. Maintenance issues - - DVT prophylaxis - apixaban - GI prophylaxis - PPI - Nutrition - regular diet - Alston catheter - none indicated Disposition - anticipate discharge home after the hospital stay Roberto De Luna M.D.
[2016-12-28] MEDS ORDERED: Sotalol 80 MG Tab PO SCH (10:00)
[2016-12-28] MEDS: Apixaban 5 MG Tab PO SCH ×2 (10:22→20:48)
[2016-12-28] MEDS: Pantoprazole 40 MG Tab.CR PO SCH (10:22)
[2016-12-28] MEDS ORDERED: Sodium Chloride 0.9% 250 ML IV SCH (11:30)
[2016-12-28] MEDS: Nicotine 14 MG/24 Hr Patch TRDERM SCH (12:16)
[2016-12-28] MEDS: Sodium Chloride 0.9% 1,000 ML IV SCH ×2 (15:43→20:48)
[2016-12-28] MEDS ORDERED: Sodium Chloride 0.9% 500 ML IV SCH (17:00)
[2016-12-28] MEDS ORDERED: Hydrocortisone Sodium Succinate 100 MG/2 ML SDV IVPUSH ONE (17:15)
[2016-12-28] MEDS: Docusate Sodium 100 MG Cap PO SCH (20:48)
[2016-12-28] MEDS: atorvaSTATin 20 MG Tab PO SCH (20:48)
[2016-12-28] MEDS: cefTRIAXone 2 GM in Sodium Chloride 0.9% 50 ML IV SCH (21:50)
[2016-12-29] MEDS: Sodium Chloride 0.9% 1,000 ML IV SCH (05:38)
[2016-12-29] MEDS: Albuterol/Ipratropium 3.0-0.5 MG/3 ML Neb Soln NEB SCH ×4 (07:29→20:12)
[2016-12-29] MEDS: Pantoprazole 40 MG Tab.CR PO SCH (07:44)
[2016-12-29] MEDS: Docusate Sodium 100 MG Cap PO SCH ×2 (08:12→20:12)
[2016-12-29] MEDS: Apixaban 5 MG Tab PO SCH ×2 (08:12→20:13)
[2016-12-29] MEDS: Nicotine 14 MG/24 Hr Patch TRDERM SCH (08:13)
--- NOTE | 2016-12-29 10:18 | PCM.PN ---
- General Info Date of Service: 12/29/16 Functional Status: Reports: Pain Controlled, Tolerating Diet, Ambulating - Review of Systems General: Reports: Weakness. Denies: Fever Pulmonary: Denies: Shortness of Breath Gastrointestinal: Denies: Abdominal Pain Systems Review Comment:: No acute events overnight. Blood pressures have slowly improved. Urine output has been adequate. No complaints of shortness of breath or hypoxia. No abdominal pain this morning. She has not had any fevers. Urine culture is growing Escherichia coli that is sensitive to most cephalosporins as well as fluoroquinolones. Lactic acid level has normalized yesterday evening. She has been up and moving around the room without dizziness and feels much better today. - Patient Data Vitals - Most Recent: Last Vital Signs Temp 36.4 C 12/29/16 08:00 Pulse 71 12/29/16 09:00 Resp 16 12/29/16 09:00 BP 123/36 L 12/29/16 09:00 Pulse Ox 94 L 12/29/16 09:00 Weight - Most Recent: 68.039 kg I&O - Last 24 Hours: Intake & Output 12/28/16 12/29/16 12/29/16 22:59 06:59 14:59 Intake Total 2454 3127 Output Total 730 762 575 Balance 1724 6577 -575 Lab Results Last 24 Hours: Laboratory Results - last 24 hr 12/28/16 12/29/16 12/29/16 Range/Units 14:51 05:00 05:00 WBC 26.8 H (4.5-11.0) K/uL RBC 2.65 L (3.30-5.50) M/uL Hgb 8.7 L D (12.0-15.0) g/dL Hct 26.7 L (36.0-48.0) % MCV 101 H (80-98) fL MCH 33 H (27-31) pg MCHC 33 (32-36) % Plt Count 177 (150-400) K/uL Sodium 139 L (140-148) mmol/L Potassium 3.8 (3.6-5.2) mmol/L Chloride 110 H (100-108) mmol/L Carbon Dioxide 21 (21-32) mmol/L Anion Gap 11.8 (5.0-14.0) mmol/L BUN 20 H (7-18) mg/dL Creatinine 1.4 H (0.6-1.0) mg/dL Est Cr Clr Drug Dosing 31.19 mL/min Estimated GFR (MDRD) 37 L (>60) Glucose 135 H (74-106) mg/dL Lactic Acid 1.9 (0.4-2.0) mmol/L Calcium 6.9 L* (8.5-10.1) mg/dL Med Orders - Current: Current Medications Acetaminophen (Tylenol) 650 mg PO Q4H PRN PRN Reason: Pain (Mild 1-3)/fever Last Admin: 12/28/16 09:06 Dose: 650 mg Hydrocodone Bitart/Acetaminophen ([place] 325-5 Mg) 1 tab PO Q6H PRN PRN Reason: Pain Albuterol (Proventil Neb Soln) 2.5 mg NEB Q4H PRN PRN Reason: Shortness Of Breath/wheezing Last Admin: 12/28/16 05:35 Dose: 2.5 mg Albuterol/Ipratropium (Duoneb 3.0-0.5 Mg/3 Ml) 3 ml NEB QIDRT [facility] Last Admin: 12/29/16 07:29 Dose: 3 ml Apixaban (Eliquis) 5 mg PO BID [facility] Last Admin: 12/29/16 08:12 Dose: 5 mg Atorvastatin Calcium (Lipitor) 40 mg PO BEDTIME [facility] Last Admin: 12/28/16 20:48 Dose: 40 mg Docusate Sodium (Colace) 100 mg PO BID PRN PRN Reason: Constipation Docusate Sodium (Colace) 100 mg PO BID [facility] Last Admin: 12/29/16 08:12 Dose: 100 mg Ceftriaxone Sodium 2 gm/ (Sodium Chloride) 50 mls @ 100 mls/hr IV Q24H [facility] Last Admin: 12/28/16 21:50 Dose: 100 mls/hr Nicotine (Habitrol) 14 mg TRDERM DAILY [facility] Last Admin: 12/29/16 08:13 Dose: Not Given Ondansetron HCl (Zofran Odt) 4 mg PO Q6H PRN PRN Reason: Nausea able to take PO Last Admin: 12/28/16 07:00 Dose: 4 mg Pantoprazole Sodium (Protonix) 40 mg PO DAILY@0730 [facility] Last Admin: 12/29/16 07:44 Dose: 40 mg Sotalol HCl (Betapace) 80 mg PO BID [facility] Last Admin: 12/28/16 10:21 Dose: 80 mg Discontinued Medications Albuterol/Ipratropium (Duoneb 3.0-0.5 Mg/3 Ml) 3 ml NEB ONETIME ONE Stop: 12/28/16 05:47 Last Admin: 12/28/16 05:54 Dose: 3 ml Furosemide (Lasix) 40 mg IVPUSH ONETIME ONE Stop: 12/28/16 06:32 Last Admin: 12/28/16 06:46 Dose: 40 mg Hydrocortisone Sodium Succinate (Solu-Cortef) 100 mg IVPUSH ONETIME ONE Stop: 12/28/16 17:16 Last Admin: 12/28/16 17:17 Dose: 100 mg Sodium Chloride (Normal Saline) 1,000 mls @ 250 mls/hr IV ASDIRECTED [facility] Last Admin: 12/27/16 21:29 Dose: 250 mls/hr Ceftriaxone Sodium 2 gm/ (Sodium Chloride) 50 mls @ 100 mls/hr IV Q24H [facility] Last Admin: 12/28/16 01:46 Dose: 100 mls/hr Sodium Chloride (Normal Saline) 1,000 mls @ 150 mls/hr IV ASDIRECTED [facility] Sodium Chloride (Normal Saline) 500 mls @ 1,000 mls/hr IV .BOLUS ONE Stop: 12/28/16 02:41 Last Admin: 12/28/16 02:26 Dose: 1,000 mls/hr Sodium Chloride (Normal Saline) 500 mls @ 1,500 mls/hr IV .BOLUS ONE Stop: 12/28/16 03:06 Last Admin: 12/28/16 03:04 Dose: 1,500 mls/hr Norepinephrine Bitartrate 4 mg (/ Dextrose/Water) 250 mls @ 7.5 mls/hr IV TITRATE [facility]; 2 MCG/MIN PRN Reason: Protocol Last Titration: 12/28/16 05:22 Dose: 0 mcg/min, 0 mls/hr Dextrose/Water (Dextrose 5% In Water) Confirm Administered Dose 250 mls @ as directed .ROUTE .STK-MED ONE Stop: 12/28/16 04:14 Last Admin: 12/28/16 04:27 Dose: Not Given Magnesium Sulfate 2 gm/ Premix 50 mls @ 12.5 mls/hr IV ONETIME ONE Stop: 12/28/16 08:54 Last Admin: 12/28/16 05:20 Dose: 12.5 mls/hr Sodium Chloride (Normal Saline) 1,000 mls @ 125 mls/hr IV ASDIRECTED [facility] Last Admin: 12/28/16 10:28 Dose: 125 mls/hr Sodium Chloride (Normal Saline) 250 mls @ 250 mls/hr IV ASDIRECTED [facility] Stop: 12/28/16 12:31 Last Admin: 12/28/16 11:14 Dose: 250 mls/hr Sodium Chloride (Normal Saline) 1,000 mls @ 100 mls/hr IV ASDIRECTED [facility] Last Admin: 12/29/16 05:38 Dose: 250 mls/hr Sodium Chloride (Normal Saline) 500 mls @ 500 mls/hr IV ASDIRECTED [facility] Stop: 12/28/16 18:01 Last Admin: 12/28/16 17:21 Dose: 500 mls/hr Morphine Sulfate (Morphine) 2 mg IVPUSH ONETIME ONE Stop: 12/28/16 06:05 Last Admin: 12/28/16 06:19 Dose: 2 mg - Exam Quality Assessment: No: Supplemental Oxygen General: Alert, Oriented, Cooperative, No Acute Distress Neck: Supple Lungs: Clear to Auscultation, Normal Respiratory Effort Cardiovascular: Regular Rate, Regular Rhythm GI/Abdominal Exam: Soft, Non-Tender, No Distention Extremities: Normal Inspection, No Pedal Edema. No: Increased Warmth Skin: Warm, Dry Psy/Mental Status: Alert, Normal Affect - Problem List & Annotations (1) Acute cystitis with positive culture SNOMED Code(s): 709954664 Code(s): N30.00 - ACUTE CYSTITIS WITHOUT HEMATURIA Status: Acute Current Visit: Yes (2) Sepsis SNOMED Code(s): 03079445 Code(s): A41.9 - SEPSIS, UNSPECIFIED ORGANISM Status: Acute Current Visit : Yes Qualifiers: Sepsis type: Escherichia coli Qualified Code(s): A41.51 - Sepsis due to Escherichia coli [E. coli] (3) Tobacco dependence SNOMED Code(s): 31333428 Code(s): F17.200 - NICOTINE DEPENDENCE, UNSPECIFIED, UNCOMPLICATED Status: Chronic Current Visit: Yes (4) Atrial fibrillation SNOMED Code(s): 30755193 Code(s): I48.91 - UNSPECIFIED ATRIAL FIBRILLATION Status: Chronic Priority: High Current Visit: No Qualifiers: Atrial fibrillation type: paroxysmal Qualified Code(s): I48.0 - Paroxysmal atrial fibrillation - Problem List Review Problem List Initiated/Reviewed/Updated: Yes - My Orders Last 24 Hours: My Active Orders 12/28/16 09:47 Acetaminophen/HYDROcodone [[place] 325-5 MG] 1 tab PO Q6H PRN 12/28/16 10:00 Apixaban [Eliquis] 5 mg PO BID Pantoprazole [ProTONIX] 40 mg PO DAILY@0730 Sotalol [Betapace] 80 mg PO BID 12/28/16 21:00 Docusate Sodium [Colace] 100 mg PO BID atorvaSTATin [Lipitor] 40 mg PO BEDTIME 12/29/16 10:15 DC [place] Catheter [Urinary Catheter Removal] [RC] Per Unit Routine Up ad Barbra [RC] ASDIRECTED 12/29/16 10:16 Transfer Patient (Change bed) [ADT] Routine Vital Signs [RC] Q4H 12/29/16 10:30 Sodium Chloride 0.9% [Normal Saline] 1,000 ml IV ASDIRECTED 12/29/16 Lunch Regular Diet [DIET] 12/30/16 05:00 BASIC METABOLIC PANEL,BMP [CHEM] Timed CBC W/O DIFF,HEMOGRAM [HEME] Timed (1) - Plan Plan:: Assessment and plan - Acute cystitis with sepsis syndrome - ultra positive for Escherichia coli. Sepsis seems to have resolved at this point. No recurrence of her pulmonary edema. Blood pressures finally stable. -Saline lock IV -Continue current antibiotics, transition to oral medications tomorrow -Follow-up blood cultures Paroxysmal atrial fibrillation - on chronic therapy with sotalol and is anticoagulated. Plan to restart sotalol now that her blood pressures have improved. -Restart sotalol this evening but with reduced dosing based on creatinine clearance -Continue anticoagulation COPD - no evidence for acute exacerbation at this time. -As needed nebulizers Tobacco dependence - she is currently interested in nicotine patch. Maintenance issues - - DVT prophylaxis - apixaban - GI prophylaxis - PPI - Nutrition - regular diet - [place] catheter - none indicated Disposition - anticipate discharge home after the hospital stay Roberto De Luna M.D.
[2016-12-29] MEDS ORDERED: Sodium Chloride 0.9% 1,000 ML IV SCH (10:30)
[2016-12-29] MEDS: Acetaminophen 325 MG Tab PO PRN (14:44)
[2016-12-29] MEDS: atorvaSTATin 20 MG Tab PO SCH (20:13)
[2016-12-29] MEDS: Sotalol 80 MG Tab PO SCH (20:13)
[2016-12-29] MEDS: cefTRIAXone 2 GM in Sodium Chloride 0.9% 50 ML IV SCH (21:08)
[2016-12-29] MEDS ORDERED: Furosemide 20 MG/2 ML VIAL ONE (21:11)
[2016-12-29] MEDS ORDERED: Furosemide 40 MG/4 ML VIAL IVPUSH ONE (21:30)
[2016-12-30] MEDS: Acetaminophen 325 MG Tab PO PRN (04:11)
[2016-12-30 07:20] VITALS: BP 150/72
[2016-12-30] MEDS: Albuterol/Ipratropium 3.0-0.5 MG/3 ML Neb Soln NEB SCH ×2 (07:48→10:41)
[2016-12-30] MEDS: Docusate Sodium 100 MG Cap PO SCH (08:41)
[2016-12-30] MEDS: Apixaban 5 MG Tab PO SCH (08:42)
[2016-12-30] MEDS: Sotalol 80 MG Tab PO SCH (08:42)
[2016-12-30] MEDS: Pantoprazole 40 MG Tab.CR PO SCH (08:43)
[2016-12-30] MEDS: Nicotine 14 MG/24 Hr Patch TRDERM SCH (08:46)
[2016-12-30] MEDS ORDERED: Potassium Chloride 20 MEQ Tab.ER PO ONE (10:00)
--- NOTE | 2016-12-30 11:20 | PCM.DCSUM1 ---
Discharge Summary - Hospital Course Brief History: 76-year-old female with history of COPD who presented with weakness and lethargy and was admitted for management of a urinary tract infection with sepsis. - Discharge Data Discharge Date: 12/30/16 Discharge Disposition: Home, Self-Care 01 Condition: Good - Discharge Diagnosis/Problem(s) (1) Acute cystitis with positive culture SNOMED Code(s): 009774989 ICD Code: N30.00 - ACUTE CYSTITIS WITHOUT HEMATURIA Status: Acute (2) Sepsis SNOMED Code(s): 03366630 ICD Code: A41.9 - SEPSIS, UNSPECIFIED ORGANISM Status: Acute Qualifiers: Sepsis type: Escherichia coli Qualified Code(s): A41.51 - Sepsis due to Escherichia coli [E. coli] (3) Tobacco dependence SNOMED Code(s): 96252381 ICD Code: F17.200 - NICOTINE DEPENDENCE, UNSPECIFIED, UNCOMPLICATED Status : Chronic (4) Atrial fibrillation SNOMED Code(s): 06200255 ICD Code: I48.91 - UNSPECIFIED ATRIAL FIBRILLATION Status: Chronic Priority: High Qualifiers: Atrial fibrillation type: paroxysmal Qualified Code(s): I48.0 - Paroxysmal atrial fibrillation - Patient Summary/Data Hospital Course: Aditya presented to the hospital with confusion and pre-syncope. Work up in the ER was suggestive of acute cystitis with infectious encephalopathy. She had been on outpatient antibiotics for the past month. She was started on broad spectrum antibiotics and admitted to the hospital. Shortly after admission she developed hypotension and was transferred to the intensive care unit with a diagnosis of sepsis. She received the usual 30 mL/kg dose of IV fluids but unfortunately developed pulmonary edema while this was being infused. subsequently she received a dose of furosemide which led to a good diuresis and resolution of her pulmonary edema and respiratory distress. This also led to hypotension. She was on norepinephrine for a while overnight following admission but this had been weaned off the morning after admission. When I took over care the morning after admission she was hypotensive and we slowly started IV fluids. We had slow but only temporary improvement with the IV fluids and she received a dose of hydrocortisone. This led to a better response with her blood pressure and she maintained low normal blood pressures throughout the night. We did slowly turned down her fluids once the pressures had improved but she did have a mild episode of pulmonary edema requiring a second dose of furosemide. By the second day after admission she is feeling much better. She's not having any abdominal pain or shortness of breath. She has no lower extremity edema and she has been weaned off of her supplemental oxygen. Her urine culture is growing an Escherichia coli that resistant to penicillins as well as some cephalosporins and tetracyclines. I elected to continue IV antibiotics for an additional day before transitioning to oral antibiotics. The night before discharge she had a very mild episode of increased work of breathing which responded well to only a 10 mg dose of furosemide. The morning of discharge she is feeling well and has no pain or shortness of breath. She is off supplemental oxygen. I believe she is safe for outpatient management at this time. She will be on ciprofloxacin for 7 more doses. She will follow-up if things get worse or do not get better. - Patient Instructions Diet: Regular Diet as Tolerated Activity: As Tolerated Driving: May Drive Today Showering/Bathing: May Shower Notify Provider of: Fever, Increased Pain, Nausea and/or Vomiting Other/Special Instructions: 1. You were in the hospital for management of a urinary tract infection caused by Escherichia coli. This infection was complicated by sepsis syndrome. You have improved with antibiotics and IV fluids. I do recommend 7 additional doses of ciprofloxacin which you will be taking twice daily. Your next dose is due tonight. 2. Consider taking an over- the-counter probiotic capsule twice daily for the next 2 weeks to help reduce the risk of antibiotic associated diarrhea. Please talk to your pharmacist about the most appropriate probiotic for you. 3. Continue your usual home medications as previously prescribed. 4. Please seek medical attention if you develop fever greater than 101, have severe abdominal pain, persistent vomiting or diarrhea. - Discharge Plan Prescriptions/Med Rec: Ciprofloxacin HCl 250 mg PO BID #7 tablet Home Medications: Home Meds Losartan [Cozaar] 50 tab PO DAILY 04/30/15 [History] atorvaSTATin [Lipitor] 40 mg PO BEDTIME #30 tablet 05/01/15 [Rx] Albuterol [Ventolin HFA] 1 puff .XX Q4H PRN 09/26/15 [History] Apixaban [Eliquis] 5 mg PO BID 09/26/15 [History] Calcium Carbonate/Vitamin D3 [Calcium 600-Vit D3 400 Tablet] 1 tab PO BID [History] Magnesium Oxide 400 mg PO BID 09/26/15 [History] Cholecalciferol (Vitamin D3) [Vitamin D3] 1,000 units PO DAILY 11/29/15 [History ] Cyanocobalamin (Vitamin B-12) [B-12] 500 mcg PO DAILY 11/29/15 [History] Docusate Sodium [Colace] 100 mg PO BID 11/29/15 [History] Ipratropium [Atrovent HFA] 2 puff IH QID 11/29/15 [History] Loratadine 10 mg PO DAILY 11/29/15 [History] Polyethylene Glycol 3350 [Miralax] 17 gm PO ASDIRECTED 11/29/15 [History] Spironolactone [Aldactone] 25 mg PO DAILY 11/29/15 [History] Multivitamins [Tab-A-Sarah] 1 tab PO DAILY 01/02/16 [History] Sodium Chloride [Deep Sea] 1 - 2 spray NASBOTH ASDIRECTED 01/02/16 [History] Pantoprazole [ProTONIX] 40 mg PO DAILY 01/04/16 [History] Sotalol HCl [Sotalol] 80 mg PO BID 06/16/16 [History] Cyclobenzaprine [Flexeril] 5 mg PO BEDTIME 12/27/16 [History] Hydrocodone/Acetaminophen [Hydrocodon-Acetaminophen 5-325] 1 tab PO Q6H PRN 08/10 [History] Ciprofloxacin HCl 250 mg PO BID #7 tablet 12/30/16 [Rx] Patient Handouts: Urinary Tract Infection, Adult, Ciprofloxacin tablets Referrals: Adams Ramachandran [employer] [Primary Care Provider] - (f/u as needed if your symptoms do not continue to improve or they get worse) - Discharge Summary/Plan Comment DC Time >30 min.: No (25) - Patient Data Vitals - Most Recent: Last Vital Signs Temp 37.0 C 12/30/16 07:00 Pulse 84 12/30/16 10:41 Resp 20 12/30/16 07:00 BP 150/72 H 12/30/16 08:42 Pulse Ox 94 L 12/30/16 10:41 Weight - Most Recent: 68.039 kg I&O - Last 24 hours: Intake & Output 12/29/16 12/30/16 12/30/16 22:59 06:59 14:59 Intake Total 1519 1600 480 Output Total 500 3900 400 Balance 1019 -2300 80 Lab Results - Last 24 hrs: Laboratory Results - last 24 hr 12/30/16 12/30/16 Range/Units 05:00 05:00 WBC 19.1 H (4.5-11.0) K/uL RBC 2.50 L (3.30-5.50) M/uL Hgb 9.4 L (12.0-15.0) g/dL Hct 25.7 L (36.0-48.0) % MCV 103 H (80-98) fL MCH 38 H (27-31) pg MCHC 37 H (32-36) % Plt Count 207 (150-400) K/uL Sodium 142 (140-148) mmol/L Potassium 3.3 L (3.6-5.2) mmol/L Chloride 112 H (100-108) mmol/L Carbon Dioxide 21 (21-32) mmol/L Anion Gap 12.3 (5.0-14.0) mmol/L BUN 17 (7-18) mg/dL Creatinine 1.1 H (0.6-1.0) mg/dL Est Cr Clr Drug Dosing 39.70 mL/min Estimated GFR (MDRD) 48 L (>60) Glucose 110 H (74-106) mg/dL Calcium 7.3 L (8.5-10.1) mg/dL Med Orders - Current: Current Medications Acetaminophen (Tylenol) 650 mg PO Q4H PRN PRN Reason: Pain (Mild 1-3)/fever Last Admin: 12/30/16 04:11 Dose: 650 mg Hydrocodone Bitart/Acetaminophen ([place] 325-5 Mg) 1 tab PO Q6H PRN PRN Reason: Pain Albuterol (Proventil Neb Soln) 2.5 mg NEB Q4H PRN PRN Reason: Shortness Of Breath/wheezing Last Admin: 12/28/16 05:35 Dose: 2.5 mg Albuterol/Ipratropium (Duoneb 3.0-0.5 Mg/3 Ml) 3 ml NEB QIDRT AUG[place]INE Last Admin: 12/30/16 10:41 Dose: 3 ml Apixaban (Eliquis) 5 mg PO BID [facility] Last Admin: 12/30/16 08:42 Dose: 5 mg Atorvastatin Calcium (Lipitor) 40 mg PO BEDTIME [facility] Last Admin: 12/29/16 20:13 Dose: 40 mg Ciprofloxacin (Ciprofloxacin Hcl) 250 mg PO ONETIME ONE Stop: 12/30/16 11:13 Docusate Sodium (Colace) 100 mg PO BID PRN PRN Reason: Constipation Docusate Sodium (Colace) 100 mg PO BID [facility] Last Admin: 12/30/16 08:41 Dose: 100 mg Sodium Chloride (Normal Saline) 1,000 mls @ 25 mls/hr IV ASDIRECTED [facility] Nicotine (Habitrol) 14 mg TRDERM DAILY [facility] Last Admin: 12/30/16 08:46 Dose: Not Given Ondansetron HCl (Zofran Odt) 4 mg PO Q6H PRN PRN Reason: Nausea able to take PO Last Admin: 12/28/16 07:00 Dose: 4 mg Pantoprazole Sodium (Protonix) 40 mg PO DAILY@0730 [facility] Last Admin: 12/30/16 08:43 Dose: 40 mg Sotalol HCl (Betapace) 40 mg PO BID [facility] Last Admin: 12/30/16 08:42 Dose: 40 mg Discontinued Medications Albuterol/Ipratropium (Duoneb 3.0-0.5 Mg/3 Ml) 3 ml NEB ONETIME ONE Stop: 12/28/16 05:47 Last Admin: 12/28/16 05:54 Dose: 3 ml Furosemide (Lasix) 40 mg IVPUSH ONETIME ONE Stop: 12/28/16 06:32 Last Admin: 12/28/16 06:46 Dose: 40 mg Furosemide (Lasix) 10 mg IVPUSH NOW ONE Stop: 12/29/16 21:31 Last Admin: 12/29/16 21:17 Dose: Not Given Furosemide (Lasix) Confirm Administered Dose 20 mg .ROUTE .STK-MED ONE Stop: 12/29/16 21:12 Last Admin: 12/29/16 21:16 Dose: 10 mg Hydrocortisone Sodium Succinate (Solu-Cortef) 100 mg IVPUSH ONETIME ONE Stop: 12/28/16 17:16 Last Admin: 12/28/16 17:17 Dose: 100 mg Sodium Chloride (Normal Saline) 1,000 mls @ 250 mls/hr IV ASDIRECTED [facility] Last Admin: 12/27/16 21:29 Dose: 250 mls/hr Ceftriaxone Sodium 2 gm/ (Sodium Chloride) 50 mls @ 100 mls/hr IV Q24H [facility] Last Admin: 12/28/16 01:46 Dose: 100 mls/hr Sodium Chloride (Normal Saline) 1,000 mls @ 150 mls/hr IV ASDIRECTED [place] Sodium Chloride (Normal Saline) 500 mls @ 1,000 mls/hr IV .BOLUS ONE Stop: 12/28/16 02:41 Last Admin: 12/28/16 02:26 Dose: 1,000 mls/hr Sodium Chloride (Normal Saline) 500 mls @ 1,500 mls/hr IV .BOLUS ONE Stop: 12/28/16 03:06 Last Admin: 12/28/16 03:04 Dose: 1,500 mls/hr Norepinephrine Bitartrate 4 mg (/ Dextrose/Water) 250 mls @ 7.5 mls/hr IV TITRATE AUGUSTINE; 2 MCG/MIN PRN Reason: Protocol Last Titration: 12/28/16 05:22 Dose: 0 mcg/min, 0 mls/hr Dextrose/Water (Dextrose 5% In Water) Confirm Administered Dose 250 mls @ as directed .ROUTE .STK-MED ONE Stop: 12/28/16 04:14 Last Admin: 12/28/16 04:27 Dose: Not Given Magnesium Sulfate 2 gm/ Premix 50 mls @ 12.5 mls/hr IV ONETIME ONE Stop: 12/28/16 08:54 Last Admin: 12/28/16 05:20 Dose: 12.5 mls/hr Ceftriaxone Sodium 2 gm/ (Sodium Chloride) 50 mls @ 100 mls/hr IV Q24H [facility] Last Admin: 12/29/16 21:08 Dose: 100 mls/hr Sodium Chloride (Normal Saline) 1,000 mls @ 125 mls/hr IV ASDIRECTED [facility] Last Admin: 12/28/16 10:28 Dose: 125 mls/hr Sodium Chloride (Normal Saline) 250 mls @ 250 mls/hr IV ASDIRECTED [facility] Stop: 12/28/16 12:31 Last Admin: 12/28/16 11:14 Dose: 250 mls/hr Sodium Chloride (Normal Saline) 1,000 mls @ 100 mls/hr IV ASDIRECTED [facility] Last Admin: 12/29/16 05:38 Dose: 250 mls/hr Sodium Chloride (Normal Saline) 500 mls @ 500 mls/hr IV ASDIRECTED [facility] Stop: 12/28/16 18:01 Last Admin: 12/28/16 17:21 Dose: 500 mls/hr Morphine Sulfate (Morphine) 2 mg IVPUSH ONETIME ONE Stop: 12/28/16 06:05 Last Admin: 12/28/16 06:19 Dose: 2 mg Potassium Chloride (Klor-Con M20) 40 meq PO ONETIME ONE Stop: 12/30/16 10:01 Last Admin: 12/30/16 10:01 Dose: 40 meq Sotalol HCl (Betapace) 80 mg PO BID [facility] Last Admin: 12/28/16 10:21 Dose: 80 mg *Q Meaningful Use (DIS) - VTE *Q VTE Criteria *Q: - Stroke *Q Stroke Criteria *Q: - AMI *Q AMI Criteria *Q:
[2016-12-30] MEDS ORDERED: Ciprofloxacin 500 MG Tab PO ONE (11:30)
== END 2016-12-30 12:30 | disposition home or self-care (01) | DRG 689 ==
LOC: JP.ED 19:05 → JP.ICU 12-28 00:24 → JP.MS 12-29 12:59
PROVIDERS: ADMIT Family Medicine; ATTEND Internal Medicine
DX: N30.00 Acute cystitis without hematuria (principal); A41.9 Sepsis, unspecified organism; C85.90 Non-Hodgkin lymphoma, unspecified, unspecified site; B96.20 Unspecified Escherichia coli [E. coli] as the cause of diseases classified elsewhere; I48.0 Paroxysmal atrial fibrillation; I11.0 Hypertensive heart disease with heart failure; I50.9 Heart failure, unspecified; J44.9 Chronic obstructive pulmonary disease, unspecified; F17.210 Nicotine dependence, cigarettes, uncomplicated; J02.0 Streptococcal pharyngitis; R41.0 Disorientation, unspecified; R41.82 Altered mental status, unspecified; R55 Syncope and collapse; E83.42 Hypomagnesemia; Z79.01 Long term (current) use of anticoagulants; I95.9 Hypotension, unspecified; E78.5 Hyperlipidemia, unspecified; Z86.73 Personal history of transient ischemic attack (TIA), and cerebral infarction without residual deficits; E53.8 Deficiency of other specified B group vitamins; N32.89 Other specified disorders of bladder; K21.9 Gastro-esophageal reflux disease without esophagitis; G89.29 Other chronic pain; M54.9 Dorsalgia, unspecified; Z87.440 Personal history of urinary (tract) infections; K59.09 Other constipation; Z87.01 Personal history of pneumonia (recurrent); H54.7 Unspecified visual loss; Z88.6 Allergy status to analgesic agent; Z88.8 Allergy status to other drugs, medicaments and biological substances
CPT/HCPCS: 36415; 70450; 71010 ×2; 80053; 81001; 82150; 83605; 83690; 85025; 86140; 87040 ×2; 87086; 87430; 99285; J7040; 80048; 83735; 83880; 84484; 85027; 87088; 87186; 93005; 94640-76; 97116-GP; 97162-GP; A9270-GY; J0696; J1720; J1940; J2270; J3475; J7050; J7060; J7620

== ENCOUNTER 2016-12-30 14:42 | Emergency (ER) | payer MEDICARE ==
[2016-12-30] MEDS ORDERED: Albuterol/Ipratropium 3.0-0.5 MG/3 ML Neb Soln ONE (14:50)
[2016-12-30] MEDS ORDERED: Albuterol/Ipratropium 3.0-0.5 MG/3 ML Neb Soln NEB ONE (14:56)
[2016-12-30] MEDS ORDERED: Furosemide 40 MG/4 ML VIAL IVPUSH ONE (15:09)
[2016-12-30] MEDS ORDERED: Nitroglycerin/D5W 25 MG/250 ML BOTTLE IV SCH (15:15)
--- NOTE | 2016-12-30 15:32 | EDM.PDOC ---
ED HPI GENERAL MEDICAL PROBLEM - General Chief Complaint: Respiratory Problem Stated Complaint: BREATHING ISSUES Time Seen by Provider: 12/30/16 14:55 Source of Information: Reports: Patient, EMS, Family History Limitations: Reports: Physical Impairment, Respiratory Distress - History of Present Illness INITIAL COMMENTS - FREE TEXT/NARRATIVE: 76-year-old female was discharged from the hospital earlier today went home and within 2-3 hours started becoming very short of breath. She denies any pain. It' s very difficult to get a history as she is having difficulty speaking because of the intense dyspnea, her O2 saturations are 81%. She appears dusky and very uncomfortable, very anxious. Onset: Sudden (Within the last few hours) Severity: Severe Associated Symptoms: Reports: Shortness of Breath. Denies: Fever/Chills, Nausea /Vomiting - Related Data Allergies Allergy/AdvReac Type Severity Reaction Status Date / Time diclofenac [From Voltaren] Allergy Cannot Verified 12/27/16 19:43 Remember tramadol Allergy Cannot Verified 12/27/16 19:43 Remember aspirin AdvReac Intermediate Syncope Verified 12/27/16 19:43 ibuprofen AdvReac Intermediate Syncope Verified 12/27/16 19:43 Home Meds: Home Meds Losartan [Cozaar] 50 tab PO DAILY 04/30/15 [History] atorvaSTATin [Lipitor] 40 mg PO BEDTIME #30 tablet 05/01/15 [Rx] Albuterol [Ventolin HFA] 1 puff .XX Q4H PRN 09/26/15 [History] Apixaban [Eliquis] 5 mg PO BID 09/26/15 [History] Calcium Carbonate/Vitamin D3 [Calcium 600-Vit D3 400 Tablet] 1 tab PO BID [History] Magnesium Oxide 400 mg PO BID 09/26/15 [History] Cholecalciferol (Vitamin D3) [Vitamin D3] 1,000 units PO DAILY 11/29/15 [History ] Cyanocobalamin (Vitamin B-12) [B-12] 500 mcg PO DAILY 11/29/15 [History] Docusate Sodium [Colace] 100 mg PO BID 11/29/15 [History] Ipratropium [Atrovent HFA] 2 puff IH QID 11/29/15 [History] Loratadine 10 mg PO DAILY 11/29/15 [History] Polyethylene Glycol 3350 [Miralax] 17 gm PO ASDIRECTED 11/29/15 [History] Spironolactone [Aldactone] 25 mg PO DAILY 11/29/15 [History] Multivitamins [Tab-A-Sarah] 1 tab PO DAILY 01/02/16 [History] Sodium Chloride [Deep Sea] 1 - 2 spray NASBOTH ASDIRECTED 01/02/16 [History] Pantoprazole [ProTONIX] 40 mg PO DAILY 01/04/16 [History] Sotalol HCl [Sotalol] 80 mg PO BID 06/16/16 [History] Cyclobenzaprine [Flexeril] 5 mg PO BEDTIME 12/27/16 [History] Hydrocodone/Acetaminophen [Hydrocodon-Acetaminophen 5-325] 1 tab PO Q6H PRN 08/10 [History] Ciprofloxacin HCl 250 mg PO BID #7 tablet 12/30/16 [Rx] Past Medical History HEENT History: Reports: Allergic Rhinitis, Cataract, Impaired Vision Cardiovascular History: Reports: Afib, Heart Murmur, High Cholesterol, Hypertension Respiratory History: Reports: Bronchitis, Recurrent, COPD, Pneumonia, Recurrent Gastrointestinal History: Reports: Chronic Constipation, Gastritis, GERD Genitourinary History: Reports: Renal Calculus, UTI, Recurrent [employer]OR History: Reports: Dysfunctional Uterine Bleeding, Musculoskeletal History: Reports: Arthritis, Back Pain, Chronic, Osteoarthritis , RA Neurological History: Reports: CVA, Migraines, Vertigo Psychiatric History: Reports: Depression Endocrine/Metabolic History: Reports: Vitamin D Deficiency Hematologic History: Reports: Anemia, B12 Deficiency, Blood Transfusion(s), Iron Deficiency, Other (See Below) 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, cold agglutinin Immunologic History: Reports: None Oncologic (Cancer) History: Reports: Lymphoma Dermatologic History: Reports: None - Infectious Disease History Infectious Disease History: Reports: Chicken Pox, Measles, Mumps - Past Surgical History Head Surgeries/Procedures: Reports: None HEENT Surgical History: Reports: Cataract Surgery, Oral Surgery Female Surgical History: Reports: Hysterectomy Neurological Surgical History: Reports: Laminectomy, Lumbar Spine Oncologic Surgical History: Reports: Bone Marrow Aspiration Dermatological Surgical History: Reports: None Social & Family History - Family History Family Medical History: Noncontributory - Tobacco Use Smoking Status *Q: Current Every Day Smoker Years of Tobacco use: 55 Packs/Tins Daily: 0.3 Used Tobacco, but Quit: No Second Hand Smoke Exposure: No - Caffeine Use Caffeine Use: Reports: Coffee, Soda - Alcohol Use Days Per Week of Alcohol Use: 0 - Recreational Drug Use Recreational Drug Use: No ED ROS GENERAL - Review of Systems Review Of Systems: Unable To Obtain ED EXAM, GENERAL - Physical Exam Exam: See Below Exam Limited By: Respiratory Distress General Appearance: Alert, Severe Distress Throat/Mouth: Normal Inspection Respiratory/Chest: Respiratory Distress, Decreased Breath Sounds (Bases bilaterally), Wheezing (Diffuse expiratory wheezes) Cardiovascular: Regular Rate, Rhythm, Tachycardia GI/Abdominal: Non-Tender Extremities: Pedal Edema (Only a trace of peripheral edema is present) Neurological: Alert Psychiatric: Anxious Skin Exam: Warm, Dry Course - Vital Signs Last Recorded V/S: Last Vital Signs Temp 96.2 F 12/30/16 14:53 Pulse 99 12/30/16 17:25 Resp 31 H 12/30/16 17:25 BP 188/87 H 12/30/16 17:25 Pulse Ox 99 12/30/16 17:25 - Orders/Labs/Meds Orders: Active Orders 24 hr Category Date Time Status EKG Documentation Completion [RC] ASDIRECTED Care 12/30/16 16:25 Active Insert Urinary Catheter [OM.PC] Q24H Care 12/30/16 15:15 Ordered RT Aerosol Therapy [RC] ASDIRECTED Care 12/30/16 14:56 Active Urinary Catheter Assessment [RC] ASDIRECTED Care 12/30/16 15:09 Active Chest 1V Frontal [CR] Stat Exams 12/30/16 14:56 Taken EKG 12 Lead [EK] Routine Ther 12/30/16 16:25 Ordered Labs: Laboratory Tests 12/30/16 12/30/16 12/30/16 Range/Units 14:57 15:48 15:48 WBC 22.0 H (4.5-11.0) K/uL RBC 2.69 L (3.30-5.50) M/uL Hgb 11.7 L D (12.0-15.0) g/dL Hct 28.1 L (36.0-48.0) % MCV 105 H (80-98) fL MCH 44 H (27-31) pg MCHC 42 H (32-36) % Plt Count 267 (150-400) K/uL Neut % (Auto) 90 H (36-66) % Lymph % (Auto) 4 L (24-44) % [place] % (Auto) 5 (2-6) % Eos % (Auto) 1 L (2-4) % Baso % (Auto) 0 (0-1) % Puncture Site Lt.radial ABG pH 7.240 L (7.350-7.450) ABG pCO2 44.1 H (35.0-42.0) mmHg ABG pO2 64.8 L (75.0-100.0) mmHg ABG HCO3 18.2 L (22.0-26.0) mmol/L ABG Total CO2 17.3 L (21.0-25.0) mmol/L ABG O2 Saturation 86.9 L (95.0-98.0) % ABG O2 Content 13.6 L (15.0-23.0) %vol ABG Base Excess -8.4 mm/L ABG Hemoglobin 11.2 L (12.0-16.0) g/dL ABG Oxyhemoglobin 86.4 % ABG Carboxyhemoglobin 0.4 (0.0-1.6) % ABG Methemoglobin 0.2 % Bari Test Passed O2 Delivery Device Nasal cannula Oxygen Flow Rate 5 L Sodium 137 L (140-148) mmol/L Potassium 4.8 (3.6-5.2) mmol/L Chloride 108 (100-108) mmol/L Carbon Dioxide 19 L (21-32) mmol/L Anion Gap 14.8 H (5.0-14.0) mmol/L BUN 14 (7-18) mg/dL Creatinine 1.0 (0.6-1.0) mg/dL Est Cr Clr Drug Dosing TNP Estimated GFR (MDRD) 54 L (>60) Glucose 198 H (74-106) mg/dL Lactic Acid (0.4-2.0) mmol/L Calcium 8.5 D (8.5-10.1) mg/dL Total Bilirubin 0.5 (0.2-1.0) mg/dL AST 56 H D (15-37) U/L ALT 54 D (12-78) U/L Alkaline Phosphatase 155 H (46-116) U/L Troponin I 0.116 H* (0.000-0.056) ng/mL Total Protein 7.2 (6.4-8.2) g/dL Albumin 2.5 L (3.4-5.0) g/dL Globulin 4.7 H (2.3-3.5) g/dL Albumin/Globulin Ratio 0.5 L (1.2-2.2) 12/30/16 12/30/16 Range/Units 15:48 16:59 WBC (4.5-11.0) K/uL RBC (3.30-5.50) M/uL Hgb (12.0-15.0) g/dL Hct (36.0-48.0) % MCV (80-98) fL MCH (27-31) pg MCHC (32-36) % Plt Count (150-400) K/uL Neut % (Auto) (36-66) % Lymph % (Auto) (24-44) % [place] % (Auto) (2-6) % Eos % (Auto) (2-4) % Baso % (Auto) (0-1) % Puncture Site Rt.radial ABG pH 7.451 H (7.350-7.450) ABG pCO2 27.0 L (35.0-42.0) mmHg ABG pO2 73.8 L (75.0-100.0) mmHg ABG HCO3 18.5 L (22.0-26.0) mmol/L ABG Total CO2 16.8 L (21.0-25.0) mmol/L ABG O2 Saturation 95.4 (95.0-98.0) % ABG O2 Content 14.7 L (15.0-23.0) %vol ABG Base Excess -3.9 mm/L ABG Hemoglobin 11.1 L (12.0-16.0) g/dL ABG Oxyhemoglobin 93.9 % ABG Carboxyhemoglobin 0.9 (0.0-1.6) % ABG Methemoglobin 0.7 % Bari Test Passed O2 Delivery Device Bipap Oxygen Flow Rate 40 L Sodium (140-148) mmol/L Potassium (3.6-5.2) mmol/L Chloride (100-108) mmol/L Carbon Dioxide (21-32) mmol/L Anion Gap (5.0-14.0) mmol/L BUN (7-18) mg/dL Creatinine (0.6-1.0) mg/dL Est Cr Clr Drug Dosing Estimated GFR (MDRD) (>60) Glucose (74-106) mg/dL Lactic Acid 3.1 H (0.4-2.0) mmol/L Calcium (8.5-10.1) mg/dL Total Bilirubin (0.2-1.0) mg/dL AST (15-37) U/L ALT (12-78) U/L Alkaline Phosphatase (46-116) U/L Troponin I (0.000-0.056) ng/mL Total Protein (6.4-8.2) g/dL Albumin (3.4-5.0) g/dL Globulin (2.3-3.5) g/dL Albumin/Globulin Ratio (1.2-2.2) Meds: Medications Discontinued Medications Generic Name Dose Route Start Last Admin Trade Name Freq PRN Reason Stop Dose Admin Albuterol/Ipratropium Confirm 12/30/16 14:50 12/30/16 15:41 Duoneb 3.0-0.5 Mg/3 Ml Administered 12/30/16 14:51 Not Given Dose 3 ml .ROUTE .STK-MED ONE Albuterol/Ipratropium 3 ml 12/30/16 14:56 12/30/16 14:57 Duoneb 3.0-0.5 Mg/3 Ml NEB 12/30/16 14:57 3 ml ONETIME ONE Administration Furosemide 80 mg 12/30/16 15:09 12/30/16 15:10 Lasix IVPUSH 12/30/16 15:10 80 mg ONETIME ONE Administration Heparin Sodium (Porcine) 4,000 units 12/30/16 17:00 12/30/16 17:19 Heparin Sodium IVPUSH 12/30/16 17:01 4,000 units .BOLUS ONE Administration Nitroglycerin/Dextrose 25 mg in 250 mls @ 6 mls/hr 12/30/16 15:15 12/30/16 16 :44 Nitroglycerin 25 Mg/D5w 250 Ml IV 5 mcg/min TITRATE AUG[place]INE 3 mls/hr Protocol Titration 10 MCG/MIN Heparin Sodium/Dextrose 25,000 units in 500 mls @ 16.32 mls/hr 12/30/16 17:00 12/30/16 17:21 Heparin 25,000 Units In D5w 500 Ml IV 12 units/kg/hr TITRATE [place]INE 16.32 mls/hr Protocol Administration 12 UNITS/KG/HR Lorazepam 0.5 mg 12/30/16 15:55 12/30/16 16:07 Ativan IVPUSH 12/30/16 15:56 0.5 mg ONETIME ONE Administration - Re-Assessments/Exams Free Text/Narrative Re-Assessment/Exam: 12/30/16 15:29 A DuoNeb was given to the patient, O2 supplementation and an IV started. A portable chest x-ray showed diffuse flash pulmonary edema. This is compared to an x-ray 2 days ago and is much worse. Patient was given 80 mg of Lasix IV, a [place] was placed and she was started on nitroglycerin drip at 10 mcg/m. ABGs were drawn prior to the medications. 12/30/16 15:31 ABGs revealed a pH of 7.24, although her O2 was 64 and PCO2 was 44. Respiratory therapy was consulted to provide BiPAP. I contacted Dr. De Luna of the hospitalist service, informed him of the patient's arrival and need for admission. Troponin returned at 0.11, EKG revealed anterolateral ST depression. Patient transferred to [facility], please refer to Dr. De Luna consult note. Departure - Departure Time of Disposition: 18:07 Disposition: DC/Tfer to Acute Hospital 02 Clinical Impression: Congestive heart failure, NSTEMI (non-ST elevated myocardial infarction), Acute respiratory failure with hypoxia - Discharge Information Referrals: PCP,None [Primary Care Provider] - Forms: ED Department Discharge - My Orders Last 24 Hours: My Active Orders 12/30/16 14:56 RT Aerosol Therapy [RC] ASDIRECTED Chest 1V Frontal [CR] Stat 12/30/16 15:09 Urinary Catheter Assessment [RC] ASDIRECTED 12/30/16 15:15 Insert Urinary Catheter [OM.PC] Q24H 12/30/16 16:25 EKG Documentation Completion [RC] ASDIRECTED EKG 12 Lead [EK] Routine - Assessment/Plan Last 24 Hours: My Active Orders 12/30/16 14:56 RT Aerosol Therapy [RC] ASDIRECTED Chest 1V Frontal [CR] Stat 12/30/16 15:09 Urinary Catheter Assessment [RC] ASDIRECTED 12/30/16 15:15 Insert Urinary Catheter [OM.PC] Q24H 12/30/16 16:25 EKG Documentation Completion [RC] ASDIRECTED EKG 12 Lead [EK] Routine
[2016-12-30] MEDS ORDERED: LORazepam 2 MG/ML MDV IVPUSH ONE (15:55)
[2016-12-30] MEDS ORDERED: Heparin Sodium 5,000 Units/ML Vial IVPUSH ONE (17:00)
[2016-12-30] MEDS ORDERED: Heparin Sodium/D5W 25,000 UNITS/500 ML BAG IV SCH (17:00)
--- NOTE | 2016-12-30 17:22 | PCM.CONS ---
H&P History of Present Illness - General Date of Service: 12/30/16 Source of Information: Patient, Family, Provider History Limitations: Reports: No Limitations - History of Present Illness Initial Comments - Free Text/Narative: Aditya presents to the emergency room by ambulance today. She is unable to provide much history because of her hypoxic respiratory failure had noninvasive ventilation requirement. She was admitted to the hospital for the last few days for management of sepsis caused by a urinary tract infection. She did have some difficulty with pulmonary edema during the early part of the hospital stay but volume status and appeared to be very appropriate at the time of discharge this morning. Throughout the day following discharge she developed progressive shortness of breath and her granddaughter reports that she did have some chest pressure/pain reported as well. Her respiratory status worsened throughout the course of the day and an ambulance was summoned late this afternoon. Upon arrival to the emergency room she's noted to be in significant respiratory distress with a respiratory rate near 60. She is hypertensive with systolic pressures in the 200s and her heart rate is 130 with a regular rhythm. She was given a dose of furosemide and started on noninvasive ventilation after a chest x-ray suggested significant pulmonary edema. ABG showed acidosis with a pH of 7.2 and a PCO2 of 44. Troponin elevated at 0.11. Creatinine is 1. EKG shows some mild ST depressions in V3 through V5. I was asked to see her regarding possible admission we elected to transfer to a higher level of care for cardiology consultation. - Related Data Allergies/Adverse Reactions: Allergies Allergy/AdvReac Type Severity Reaction Status Date / Time diclofenac [From Voltaren] Allergy Cannot Verified 12/27/16 19:43 Remember tramadol Allergy Cannot Verified 12/27/16 19:43 Remember aspirin AdvReac Intermediate Syncope Verified 12/27/16 19:43 ibuprofen AdvReac Intermediate Syncope Verified 12/27/16 19:43 Home Medications: Home Meds Losartan [Cozaar] 50 tab PO DAILY 04/30/15 [History] atorvaSTATin [Lipitor] 40 mg PO BEDTIME #30 tablet 05/01/15 [Rx] Albuterol [Ventolin HFA] 1 puff .XX Q4H PRN 09/26/15 [History] Apixaban [Eliquis] 5 mg PO BID 09/26/15 [History] Calcium Carbonate/Vitamin D3 [Calcium 600-Vit D3 400 Tablet] 1 tab PO BID [History] Magnesium Oxide 400 mg PO BID 09/26/15 [History] Cholecalciferol (Vitamin D3) [Vitamin D3] 1,000 units PO DAILY 11/29/15 [History ] Cyanocobalamin (Vitamin B-12) [B-12] 500 mcg PO DAILY 11/29/15 [History] Docusate Sodium [Colace] 100 mg PO BID 11/29/15 [History] Ipratropium [Atrovent HFA] 2 puff IH QID 11/29/15 [History] Loratadine 10 mg PO DAILY 11/29/15 [History] Polyethylene Glycol 3350 [Miralax] 17 gm PO ASDIRECTED 11/29/15 [History] Spironolactone [Aldactone] 25 mg PO DAILY 11/29/15 [History] Multivitamins [Tab-A-Sarah] 1 tab PO DAILY 01/02/16 [History] Sodium Chloride [Deep Sea] 1 - 2 spray NASBOTH ASDIRECTED 01/02/16 [History] Pantoprazole [ProTONIX] 40 mg PO DAILY 01/04/16 [History] Sotalol HCl [Sotalol] 80 mg PO BID 06/16/16 [History] Cyclobenzaprine [Flexeril] 5 mg PO BEDTIME 12/27/16 [History] Hydrocodone/Acetaminophen [Hydrocodon-Acetaminophen 5-325] 1 tab PO Q6H PRN 08/10 [History] Ciprofloxacin HCl 250 mg PO BID #7 tablet 12/30/16 [Rx] Past Medical History HEENT History: Reports: Allergic Rhinitis, Cataract, Impaired Vision Cardiovascular History: Reports: Afib, Heart Murmur, High Cholesterol, Hypertension Respiratory History: Reports: Bronchitis, Recurrent, COPD, Pneumonia, Recurrent Gastrointestinal History: Reports: Chronic Constipation, Gastritis, GERD Genitourinary History: Reports: Renal Calculus, UTI, Recurrent 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, Musculoskeletal History: Reports: Arthritis, Back Pain, Chronic, Osteoarthritis , RA Neurological History: Reports: CVA, Migraines, Vertigo Psychiatric History: Reports: Depression Endocrine/Metabolic History: Reports: Vitamin D Deficiency Hematologic History: Reports: Anemia, B12 Deficiency, Blood Transfusion(s), Iron Deficiency, Other (See Below) 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, cold agglutinin Immunologic History: Reports: None Oncologic (Cancer) History: Reports: Lymphoma Dermatologic History: Reports: None - Infectious Disease History Infectious Disease History: Reports: Chicken Pox, Measles, Mumps - Past Surgical History Head Surgeries/Procedures: Reports: None HEENT Surgical History: Reports: Cataract Surgery, Oral Surgery Female Surgical History: Reports: Hysterectomy Neurological Surgical History: Reports: Laminectomy, Lumbar Spine Oncologic Surgical History: Reports: Bone Marrow Aspiration Dermatological Surgical History: Reports: None Social & Family History - Family History Family Medical History: Noncontributory - Tobacco Use Smoking Status *Q: Current Every Day Smoker Years of Tobacco use: 55 Packs/Tins Daily: 0.3 Used Tobacco, but Quit: No Second Hand Smoke Exposure: No - Caffeine Use Caffeine Use: Reports: Coffee, Soda - Alcohol Use Days Per Week of Alcohol Use: 0 - Recreational Drug Use Recreational Drug Use: No H&P Review of Systems - Review of Systems: Review Of Systems: See Below Free Text/Narrative: A complete 12 point review of systems was obtained. Pertinent positives and negatives are noted in the history of present illness. All other systems were reviewed and were negative except as noted. Exam - Exam Exam: See Below - Vital Signs Vital Signs: Last Vital Signs Temp 35.7 C 12/30/16 14:53 Pulse 128 H 12/30/16 14:53 Resp 25 H 12/30/16 14:53 BP 166/91 H 12/30/16 15:43 Pulse Ox 71 L 12/30/16 14:53 Weight: 68.039 kg - Exam Quality Assessment: Supplemental Oxygen, Urinary Catheter General: Alert, Oriented, Cooperative, Moderate Distress HEENT: Conjunctiva Clear, Mucosa Moist & [place]. No: Scleral Icterus Neck: Supple, Trachea Midline. No: Lymphadenopathy Lungs: Decreased Breath Sounds, Rales. No: Normal Respiratory Effort (inreased work of breathing), Wheezing Cardiovascular: Regular Rhythm, Tachycardia GI/Abdominal Exam: Normal Bowel Sounds, Soft, Non-Tender, No Distention Back Exam: No: Full Range of Motion, Muscle Spasm Extremities: Normal Inspection, No Pedal Edema. No: Increased Warmth Peripheral Pulses: 1+: Dorsalis Pedis (L), Dorsalis Pedis (R) Skin: Warm, Dry Neuro Extensive - Mental Status: Alert, Nl Response to Commands Neuro Extensive - Motor, Sensory, Reflexes: CN II-XII Intact. No: Abnormal Motor, Tremor Psychiatric: Alert, Anxious - Patient Data Lab Results Last 24 hrs: Laboratory Results - last 24 hr 12/30/16 12/30/16 12/30/16 Range/Units 14:57 15:48 15:48 WBC 22.0 H (4.5-11.0) K/uL RBC 2.69 L (3.30-5.50) M/uL Hgb 11.7 L D (12.0-15.0) g/dL Hct 28.1 L (36.0-48.0) % MCV 105 H (80-98) fL MCH 44 H (27-31) pg MCHC 42 H (32-36) % Plt Count 267 (150-400) K/uL Neut % (Auto) 90 H (36-66) % Lymph % (Auto) 4 L (24-44) % [place] % (Auto) 5 (2-6) % Eos % (Auto) 1 L (2-4) % Baso % (Auto) 0 (0-1) % Puncture Site Lt.radial ABG pH 7.240 L (7.350-7.450) ABG pCO2 44.1 H (35.0-42.0) mmHg ABG pO2 64.8 L (75.0-100.0) mmHg ABG HCO3 18.2 L (22.0-26.0) mmol/L ABG Total CO2 17.3 L (21.0-25.0) mmol/L ABG O2 Saturation 86.9 L (95.0-98.0) % ABG O2 Content 13.6 L (15.0-23.0) %vol ABG Base Excess -8.4 mm/L ABG Hemoglobin 11.2 L (12.0-16.0) g/dL ABG Oxyhemoglobin 86.4 % ABG Carboxyhemoglobin 0.4 (0.0-1.6) % ABG Methemoglobin 0.2 % Bari Test Passed O2 Delivery Device Nasal cannula Oxygen Flow Rate 5 L Sodium 137 L (140-148) mmol/L Potassium 4.8 (3.6-5.2) mmol/L Chloride 108 (100-108) mmol/L Carbon Dioxide 19 L (21-32) mmol/L Anion Gap 14.8 H (5.0-14.0) mmol/L BUN 14 (7-18) mg/dL Creatinine 1.0 (0.6-1.0) mg/dL Est Cr Clr Drug Dosing TNP Estimated GFR (MDRD) 54 L (>60) Glucose 198 H (74-106) mg/dL Lactic Acid (0.4-2.0) mmol/L Calcium 8.5 D (8.5-10.1) mg/dL Total Bilirubin 0.5 (0.2-1.0) mg/dL AST 56 H D (15-37) U/L ALT 54 D (12-78) U/L Alkaline Phosphatase 155 H (46-116) U/L Troponin I 0.116 H* (0.000-0.056) ng/mL Total Protein 7.2 (6.4-8.2) g/dL Albumin 2.5 L (3.4-5.0) g/dL Globulin 4.7 H (2.3-3.5) g/dL Albumin/Globulin Ratio 0.5 L (1.2-2.2) 12/30/16 12/30/16 Range/Units 15:48 16:59 WBC (4.5-11.0) K/uL RBC (3.30-5.50) M/uL Hgb (12.0-15.0) g/dL Hct (36.0-48.0) % MCV (80-98) fL MCH (27-31) pg MCHC (32-36) % Plt Count (150-400) K/uL Neut % (Auto) (36-66) % Lymph % (Auto) (24-44) % [place] % (Auto) (2-6) % Eos % (Auto) (2-4) % Baso % (Auto) (0-1) % Puncture Site Rt.radial ABG pH 7.451 H (7.350-7.450) ABG pCO2 27.0 L (35.0-42.0) mmHg ABG pO2 73.8 L (75.0-100.0) mmHg ABG HCO3 18.5 L (22.0-26.0) mmol/L ABG Total CO2 16.8 L (21.0-25.0) mmol/L ABG O2 Saturation 95.4 (95.0-98.0) % ABG O2 Content 14.7 L (15.0-23.0) %vol ABG Base Excess -3.9 mm/L ABG Hemoglobin 11.1 L (12.0-16.0) g/dL ABG Oxyhemoglobin 93.9 % ABG Carboxyhemoglobin 0.9 (0.0-1.6) % ABG Methemoglobin 0.7 % Bari Test Passed O2 Delivery Device Bipap Oxygen Flow Rate 40 L Sodium (140-148) mmol/L Potassium (3.6-5.2) mmol/L Chloride (100-108) mmol/L Carbon Dioxide (21-32) mmol/L Anion Gap (5.0-14.0) mmol/L BUN (7-18) mg/dL Creatinine (0.6-1.0) mg/dL Est Cr Clr Drug Dosing Estimated GFR (MDRD) (>60) Glucose (74-106) mg/dL Lactic Acid 3.1 H (0.4-2.0) mmol/L Calcium (8.5-10.1) mg/dL Total Bilirubin (0.2-1.0) mg/dL AST (15-37) U/L ALT (12-78) U/L Alkaline Phosphatase (46-116) U/L Troponin I (0.000-0.056) ng/mL Total Protein (6.4-8.2) g/dL Albumin (3.4-5.0) g/dL Globulin (2.3-3.5) g/dL Albumin/Globulin Ratio (1.2-2.2) Result Diagrams: 12/30/16 15:48 12/30/16 15:48 Imaging Impressions Last 24 hrs: CXR - images personally reviewed - heart size is normal. There is evidence for diffuse interstitial density consistent with pulmonary edema. No obvious infiltrate to suggest pneumonia. EKG - images personally reviewed - sinus tachycardia with heart rate of 110. Normal axis. She does have [address] depression V3 through V5 as well as [address] elevation. Consult PN Assessment/Plan Procedures: Procedures ASSAY OF CK (CPK) (05/06/15) ASSAY OF DIGOXIN TOTAL (05/06/15) ASSAY OF LACTIC ACID (12/10/16) ASSAY OF LIPASE (06/16/16) ASSAY OF MAGNESIUM (09/27/15) ASSAY OF PHOSPHORUS (09/27/15) ASSAY OF TROPONIN QUANT (09/26/15) ASSAY THYROID STIM HORMONE (04/30/15) AUTOMATED RETICULOCYTE COUNT (09/27/15) BLOOD SMEAR INTERPRETATION (09/27/15) BLOOD TRANSFUSION SERVICE (09/27/15) BLOOD TYPING SEROLOGIC ABO (09/27/15) BLOOD TYPING SEROLOGIC RH(D) (09/27/15) C-REACTIVE PROTEIN (12/10/16) CHEST X-RAY 1 VIEW FRONTAL (04/30/15) CHEST X-RAY 2VW FRONTAL&LATL (12/10/16) COLD AGGLUTININ TITER (09/27/15) COLONOSCOPY AND BIOPSY (01/04/16) COMPATIBILITY TEST ANTIGLOB (09/27/15) COMPATIBILITY TEST SPIN (09/27/15) COMPLEMENT ANTIGEN (09/27/15) COMPLETE CBC AUTOMATED (09/27/15) COMPLETE CBC W/AUTO DIFF WBC (12/10/16) COMPREHEN METABOLIC PANEL (12/10/16) DEON TEST DIRECT (09/27/15) CT ABD & PELV W/CONTRAST (06/16/16) CT HEAD/BRAIN W/O DYE (04/30/15) CULTURE SCREEN ONLY (08/27/16) EGD BIOPSY SINGLE/MULTIPLE (01/04/16) ELECTROCARDIOGRAM TRACING (05/06/15) EMERGENCY DEPT VISIT (12/10/16) EMERGENCY DEPT VISIT (07/22/16) EMERGENCY DEPT VISIT (06/16/16) EMERGENCY DEPT VISIT (09/27/15) EMERGENCY DEPT VISIT (09/26/15) EMERGENCY DEPT VISIT (09/26/15) EMERGENCY DEPT VISIT (05/06/15) EMERGENCY DEPT VISIT (05/06/15) EMERGENCY DEPT VISIT (08/06/14) EMERGENCY DEPT VISIT (04/14/14) HEMOGLOBIN (09/27/15) HYDRATE IV INFUSION ADD-ON (12/10/16) HYDRATION IV INFUSION INIT (06/16/16) IMMUNOFIX E-PHORESIS SERUM (04/30/15) METABOLIC PANEL TOTAL CA (10/14/16) OCCULT BLD FECES 1-3 TESTS (12/10/16) PROTEIN E-PHORESIS SERUM (04/30/15) PROTHROMBIN TIME (04/30/15) RBC ANTIBODY SCREEN (09/27/15) RBC SED RATE NONAUTOMATED (12/10/16) ROUTINE VENIPUNCTURE (12/10/16) STREP A AG IA (08/27/16) THER/PROPH/DIAG INJ IV PUSH (12/10/16) THER/PROPH/DIAG IV INF INIT (04/30/15) THROMBOPLASTIN TIME PARTIAL (04/30/15) TISSUE EXAM BY PATHOLOGIST (01/04/16) TX/PRO/DX INJ NEW DRUG ADDON (12/10/16) URINALYSIS AUTO W/SCOPE (12/10/16) URINE CULTURE/COLONY COUNT (12/10/16) US EXAM ABDO BACK WALL COMP (05/07/16) X-RAY EXAM HIP UNI 2-3 VIEWS (09/26/15) (1) NSTEMI (non-ST elevated myocardial infarction) SNOMED Code(s): 056042735 Code(s): I21.4 - NON-ST ELEVATION (NSTEMI) MYOCARDIAL INFARCTION Current Visit: Yes (2) Pulmonary edema SNOMED Code(s): 02591696 Code(s): J81.1 - CHRONIC PULMONARY EDEMA Current Visit: Yes Qualifiers: Chronicity: acute Qualified Code(s): J81.0 - Acute pulmonary edema (3) Acute respiratory failure with hypoxia SNOMED Code(s): 41898753, 003971926 Code(s): J96.01 - ACUTE RESPIRATORY FAILURE WITH HYPOXIA Current Visit: Yes (4) Atrial fibrillation SNOMED Code(s): 49517674 Code(s): I48.91 - UNSPECIFIED ATRIAL FIBRILLATION Priority: High Current Visit: No Qualifiers: Atrial fibrillation type: paroxysmal Qualified Code(s): I48.0 - Paroxysmal atrial fibrillation Problem List Initiated/Reviewed/Updated: Yes My Orders Last 24 Hours: My Active Orders 12/30/16 17:00 Heparin Sodium/D5W [Heparin 25,000 Units in D5W 500 ML] 25,000 units in 500 ml IV TITRATE Plan: Assessment and plan - Hypoxic respiratory failure with flash pulmonary edema - she did have a recent episode of sepsis but volume status had appeared to be appropriate. No strong evidence for ongoing infection at this point. Fairly rapid and severe decline in respiratory status. She has been stabilizing with noninvasive ventilation as well as diuresis and a dose of lorazepam. Troponin level mildly elevated as discussed below. Concern for occult coronary artery issues. Case was discussed with Dr. Momin at [facility] in [place]. There is concern for acute coronary syndrome. -Supplemental oxygen -Optimize volume status -Continue noninvasive ventilation -Repeat blood gases Mild troponin elevation, suspect non-ST elevation myocardial infarction - this would explain flash pulmonary edema. She has had chest pain throughout the day. EKG shows some mild ST depression but no ST elevation. She is becoming more hemodynamics please stable throughout the course of emergency room stay. -She is allergic to aspirin -Start heparin infusion -Continue beta timothy -Transfer to [facility] for cardiology consultation and possibly angiogram She will be transferred by [facility] ambulance to [facility] in [place] for cardiology consultation. She'll be admitted to their intensive care unit. Roberto De Luna MD Requesting Provider: Dr Elizabeth Date Consult Requested: 12/30/16 Reason for Consult: flash pulmonary edema Patient History Reviewed: Yes Admission H&P Reviewed: No Notified Requestor: Yes Time Spent (in minutes): 90
[2016-12-30 17:34] VITALS: BP 188/87
--- NOTE | 2016-12-31 09:59 | CR ---
Chest 1V Frontal HISTORY: dyspnea COMPARISON: 12/28/2016 FINDINGS: There is increased interstitial prominence on today's exam consistent with interstitial ed dinora. Curly B-lines can be seen. There are small bilateral pleural effusions. Heart size is borderlin e enlarged. Superior pulmonary vasculature is prominent. IMPRESSION: Probable acute CHF with interval worsening since 12/28/2016.
== END 2016-12-30 17:55 ==
LOC: JP.ED 14:42
DX: I21.4 Non-ST elevation (NSTEMI) myocardial infarction (principal); I11.0 Hypertensive heart disease with heart failure; I50.9 Heart failure, unspecified; J96.01 Acute respiratory failure with hypoxia; I48.91 Unspecified atrial fibrillation; K21.9 Gastro-esophageal reflux disease without esophagitis; E78.00 Pure hypercholesterolemia, unspecified; F32.9 Major depressive disorder, single episode, unspecified; M19.90 Unspecified osteoarthritis, unspecified site; F17.210 Nicotine dependence, cigarettes, uncomplicated; Z86.73 Personal history of transient ischemic attack (TIA), and cerebral infarction without residual deficits; Z87.440 Personal history of urinary (tract) infections; Z85.72 Personal history of non-Hodgkin lymphomas; Z98.49 Cataract extraction status, unspecified eye; Z90.710 Acquired absence of both cervix and uterus; Z98.890 Other specified postprocedural states; Z79.899 Other long term (current) drug therapy; Z88.5 Allergy status to narcotic agent; Z88.6 Allergy status to analgesic agent; Z88.8 Allergy status to other drugs, medicaments and biological substances
CPT/HCPCS: 36415; 36600; 71010; 80053; 82803; 83605; 84484; 85025; 93005; 94660; 96365; 96366; 96368; 96375; 96376; 99285; J1644; J1940; J2060; J7620; 93010

== ENCOUNTER 2017-03-26 11:45 | Emergency (ER) | payer MEDICARE ==
[2017-03-26 11:55] VITALS: BP 140/55
--- NOTE | 2017-03-26 13:37 | EDM.PDOC ---
ED HPI GENERAL MEDICAL PROBLEM - General Chief Complaint: General Stated Complaint: MEDICAL VIA [facility] Time Seen by Provider: 03/26/17 12:15 Source of Information: Reports: Patient, EMS, Provider History Limitations: Reports: No Limitations - History of Present Illness INITIAL COMMENTS - FREE TEXT/NARRATIVE: 76-year-old female who has problems with chronic anemia and previous GI bleeds presents with a low hemoglobin found incidentally on lab was drawn for [place] this morning. Her hemoglobin is 6.7, it was 9 within the last month. She feels somewhat lightheaded and weak, and felt she had dark stools this morning but has had no epistaxis, emesis, shortness of breath or cough. She was sent in by the physicians from [facility] for a "blood transfusion". Onset: Unknown/Unsure Severity: Moderate Associated Symptoms: Reports: Weakness, Other (Lightheaded with activity). Denies: Chest Pain, Cough, Fever/Chills, Shortness of Breath - Related Data Allergies Allergy/AdvReac Type Severity Reaction Status Date / Time diclofenac [From Voltaren] Allergy Cannot Verified 12/27/16 19:43 Remember tramadol Allergy Cannot Verified 12/27/16 19:43 Remember aspirin AdvReac Intermediate Syncope Verified 12/27/16 19:43 ibuprofen AdvReac Intermediate Syncope Verified 12/27/16 19:43 Home Meds: Home Meds Losartan [Cozaar] 50 tab PO DAILY 04/30/15 [History] atorvaSTATin [Lipitor] 40 mg PO BEDTIME #30 tablet 05/01/15 [Rx] Albuterol [Ventolin HFA] 1 puff .XX Q4H PRN 09/26/15 [History] Apixaban [Eliquis] 5 mg PO BID 09/26/15 [History] Calcium Carbonate/Vitamin D3 [Calcium 600-Vit D3 400 Tablet] 1 tab PO BID [History] Magnesium Oxide 400 mg PO BID 09/26/15 [History] Cholecalciferol (Vitamin D3) [Vitamin D3] 1,000 units PO DAILY 11/29/15 [History ] Cyanocobalamin (Vitamin B-12) [B-12] 500 mcg PO DAILY 11/29/15 [History] Docusate Sodium [Colace] 100 mg PO BID 11/29/15 [History] Ipratropium [Atrovent HFA] 2 puff IH QID 11/29/15 [History] Loratadine 10 mg PO DAILY 11/29/15 [History] Polyethylene Glycol 3350 [Miralax] 17 gm PO ASDIRECTED 11/29/15 [History] Spironolactone [Aldactone] 25 mg PO DAILY 11/29/15 [History] Multivitamins [Tab-A-Sarah] 1 tab PO DAILY 01/02/16 [History] Sodium Chloride [Deep Sea] 1 - 2 spray NASBOTH ASDIRECTED 01/02/16 [History] Pantoprazole [ProTONIX] 40 mg PO DAILY 01/04/16 [History] Sotalol HCl [Sotalol] 80 mg PO BID 06/16/16 [History] Cyclobenzaprine [Flexeril] 5 mg PO BEDTIME 12/27/16 [History] Hydrocodone/Acetaminophen [Hydrocodon-Acetaminophen 5-325] 1 tab PO Q6H PRN 08/10 [History] Ciprofloxacin HCl 250 mg PO BID #7 tablet 12/30/16 [Rx] Past Medical History HEENT History: Reports: Allergic Rhinitis, Cataract, Impaired Vision Cardiovascular History: Reports: Afib, Heart Murmur, High Cholesterol, Hypertension Respiratory History: Reports: Bronchitis, Recurrent, COPD, Pneumonia, Recurrent Gastrointestinal History: Reports: Chronic Constipation, Gastritis, GERD Genitourinary History: Reports: Renal Calculus, UTI, Recurrent 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, Musculoskeletal History: Reports: Arthritis, Back Pain, Chronic, Osteoarthritis , RA Neurological History: Reports: CVA, Migraines, Vertigo Psychiatric History: Reports: Depression Endocrine/Metabolic History: Reports: Vitamin D Deficiency Hematologic History: Reports: Anemia, B12 Deficiency, Blood Transfusion(s), Iron Deficiency, Other (See Below) 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, cold agglutinin Immunologic History: Reports: None Oncologic (Cancer) History: Reports: Lymphoma Dermatologic History: Reports: None - Infectious Disease History Infectious Disease History: Reports: Chicken Pox, Measles, Mumps - Past Surgical History Head Surgeries/Procedures: Reports: None HEENT Surgical History: Reports: Cataract Surgery, Oral Surgery Female Surgical History: Reports: Hysterectomy Neurological Surgical History: Reports: Laminectomy, Lumbar Spine Oncologic Surgical History: Reports: Bone Marrow Aspiration Dermatological Surgical History: Reports: None Social & Family History - Family History Family Medical History: Noncontributory - Tobacco Use Smoking Status *Q: Light Tobacco Smoker Years of Tobacco use: 50 Packs/Tins Daily: 0.3 Used Tobacco, but Quit: No Second Hand Smoke Exposure: No - Caffeine Use Caffeine Use: Reports: Coffee, Soda - Alcohol Use Days Per Week of Alcohol Use: 0 - Recreational Drug Use Recreational Drug Use: No ED ROS GENERAL - Review of Systems Review Of Systems: See Below Constitutional: Denies: Fever, Chills HEENT: Reports: No Symptoms Respiratory: Denies: Shortness of Breath, Cough Cardiovascular: Denies: Chest Pain GI/Abdominal: Reports: Other ("Dark stools"). Denies: Abdominal Pain, Nausea : Reports: No Symptoms Skin: Reports: No Symptoms Neurological: Reports: Dizziness. Denies: Headache ED EXAM, GENERAL - Physical Exam Exam: See Below Exam Limited By: No Limitations General Appearance: Alert, No Apparent Distress, Other (Very pleasant elderly female in no distress.) Eye Exam: Bilateral Eye: EOMI Respiratory/Chest: No Respiratory Distress, Lungs Clear Cardiovascular: Regular Rate, Rhythm GI/Abdominal: Non-Tender Rectal (Female) Exam: Normal Exam, Other (A small amount of brown stool was obtained which was guaiac positive but not dark) Neurological: Alert, Oriented Skin Exam: Warm, Dry Course - Vital Signs Last Recorded V/S: Last Vital Signs Temp 97.3 F 03/26/17 11:56 Pulse 68 03/26/17 11:56 Resp 16 03/26/17 11:56 BP 140/55 L 03/26/17 11:56 Pulse Ox 98 03/26/17 11:56 - Re-Assessments/Exams Free Text/Narrative Re-Assessment/Exam: 03/26/17 13:35 Stool guaiac was positive. 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 I talked with [facility], the hospitalist service kindly accepted the patient. Blood may not be available until tomorrow but I feel the patient should do okay, vitals are stable and she is not obviously actively bleeding or uncomfortable at this time. Departure - Departure Time of Disposition: 13:45 Disposition: DC/Tfer to Other Condition: Fair Clinical Impression: Anemia, blood loss GIB (gastrointestinal bleeding) Qualifiers: GI bleed type/associated pathology: melena Qualified Code(s): K92.1 - Melena - Discharge Information Referrals: PCP,None [Primary Care Provider] - Forms: ED Department Discharge Care Plan Goals: Patient will be transferred to [facility] for monitoring until blood is available for transfusion. She may need a gastroenterology workup as well as to assess for a source of bleeding.
== END 2017-03-26 14:06 | disposition other institution (70) ==
LOC: JP.ED 11:45
DX: D50.0 Iron deficiency anemia secondary to blood loss (chronic) (principal); K92.1 Melena; F17.210 Nicotine dependence, cigarettes, uncomplicated; I10 Essential (primary) hypertension; E78.00 Pure hypercholesterolemia, unspecified; K21.9 Gastro-esophageal reflux disease without esophagitis; F32.9 Major depressive disorder, single episode, unspecified; Z79.899 Other long term (current) drug therapy; Z88.5 Allergy status to narcotic agent; Z88.6 Allergy status to analgesic agent; C85.10 Unspecified B-cell lymphoma, unspecified site
CPT/HCPCS: 36415; 80053; 82272; 82728; 83615; 85025; 99284; 99285

== ENCOUNTER 2017-05-19 23:41 | Emergency (ER) | payer MEDICARE ==
[2017-05-20] MEDS ORDERED: Sodium Chloride 0.9% 10 ML Syringe FLUSH PRN (02:34)
[2017-05-20] MEDS ORDERED: Furosemide 40 MG/4 ML VIAL IVPUSH ONE (02:34)
[2017-05-20] MEDS ORDERED: cefTRIAXone 1 GM in Sodium Chloride 0.9% 50 ML IV ONE (02:35)
[2017-05-20 03:05] VITALS: BP 140/57
--- NOTE | 2017-05-20 03:14 | EDM.PDOC ---
ED HPI GENERAL MEDICAL PROBLEM - General Chief Complaint: General Stated Complaint: SOB Time Seen by Provider: 05/20/17 00:25 Source of Information: Reports: Patient History Limitations: Reports: No Limitations - History of Present Illness INITIAL COMMENTS - FREE TEXT/NARRATIVE: pt arrived with a history of anemia. She has had a very low hg recently. This has been followed closely. Pt has had a history of chf. Onset: Today Duration: Day(s):, Other (pt has been sob. ) Location: Reports: Chest Associated Symptoms: Reports: Cough, Shortness of Breath - Related Data Allergies Allergy/AdvReac Type Severity Reaction Status Date / Time diclofenac [From Voltaren] Allergy Cannot Verified 05/20/17 00:20 Remember tramadol Allergy Cannot Verified 05/20/17 00:20 Remember aspirin AdvReac Intermediate Syncope Verified 05/20/17 00:20 ibuprofen AdvReac Intermediate Syncope Verified 05/20/17 00:20 Home Meds: Home Meds Losartan [Cozaar] 50 tab PO DAILY 04/30/15 [History] atorvaSTATin [Lipitor] 40 mg PO BEDTIME #30 tablet 05/01/15 [Rx] Albuterol [Ventolin HFA] 1 puff .XX Q4H PRN 09/26/15 [History] Apixaban [Eliquis] 5 mg PO BID 09/26/15 [History] Calcium Carbonate/Vitamin D3 [Calcium 600-Vit D3 400 Tablet] 1 tab PO BID [History] Magnesium Oxide 400 mg PO BID 09/26/15 [History] Cholecalciferol (Vitamin D3) [Vitamin D3] 1,000 units PO DAILY 11/29/15 [History ] Cyanocobalamin (Vitamin B-12) [B-12] 500 mcg PO DAILY 11/29/15 [History] Docusate Sodium [Colace] 100 mg PO BID 11/29/15 [History] Ipratropium [Atrovent HFA] 2 puff IH QID 11/29/15 [History] Loratadine 10 mg PO DAILY 11/29/15 [History] Polyethylene Glycol 3350 [Miralax] 17 gm PO ASDIRECTED 11/29/15 [History] Spironolactone [Aldactone] 25 mg PO DAILY 11/29/15 [History] Multivitamins [Tab-A-Sarah] 1 tab PO DAILY 01/02/16 [History] Sodium Chloride [Deep Sea] 1 - 2 spray NASBOTH ASDIRECTED 01/02/16 [History] Pantoprazole [ProTONIX] 40 mg PO DAILY 01/04/16 [History] Sotalol HCl [Sotalol] 80 mg PO BID 06/16/16 [History] Cyclobenzaprine [Flexeril] 5 mg PO BEDTIME 12/27/16 [History] Hydrocodone/Acetaminophen [Hydrocodon-Acetaminophen 5-325] 1 tab PO Q6H PRN 08/10 [History] Ciprofloxacin HCl 250 mg PO BID #7 tablet 12/30/16 [Rx] Past Medical History HEENT History: Reports: Allergic Rhinitis, Cataract, Impaired Vision Cardiovascular History: Reports: Afib, Heart Murmur, High Cholesterol, Hypertension Respiratory History: Reports: Bronchitis, Recurrent, COPD, Pneumonia, Recurrent Gastrointestinal History: Reports: Chronic Constipation, Gastritis, GERD Genitourinary History: Reports: Renal Calculus, UTI, 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, Musculoskeletal History: Reports: Arthritis, Back Pain, Chronic, Osteoarthritis , RA Neurological History: Reports: CVA, Migraines, Vertigo Psychiatric History: Reports: Depression Endocrine/Metabolic History: Reports: Vitamin D Deficiency Hematologic History: Reports: Anemia, B12 Deficiency, Blood Transfusion(s), Iron Deficiency, Other (See Below) 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, cold agglutinin Immunologic History: Reports: None Oncologic (Cancer) History: Reports: Lymphoma Dermatologic History: Reports: None - Infectious Disease History Infectious Disease History: Reports: Chicken Pox, Measles, TB - Past Surgical History Head Surgeries/Procedures: Reports: None HEENT Surgical History: Reports: Cataract Surgery, Oral Surgery Female Surgical History: Reports: Hysterectomy Neurological Surgical History: Reports: Laminectomy, Lumbar Spine Oncologic Surgical History: Reports: Bone Marrow Aspiration Dermatological Surgical History: Reports: None Social & Family History - Family History Family Medical History: Noncontributory - Tobacco Use Smoking Status *Q: Current Every Day Smoker Years of Tobacco use: 60 Packs/Tins Daily: 0.2 Used Tobacco, but Quit: No Second Hand Smoke Exposure: Yes - Caffeine Use Caffeine Use: Reports: Coffee, Soda - Alcohol Use Days Per Week of Alcohol Use: 0 - Recreational Drug Use Recreational Drug Use: No ED ROS GENERAL - Review of Systems Review Of Systems: See Below Constitutional: Reports: Fatigue HEENT: Reports: No Symptoms Respiratory: Reports: Shortness of Breath Cardiovascular: Reports: No Symptoms Endocrine: Reports: No Symptoms GI/Abdominal: Reports: No Symptoms : Reports: No Symptoms Musculoskeletal: Reports: No Symptoms Skin: Reports: No Symptoms ED EXAM, GENERAL - Physical Exam Exam: See Below Free Text/Narrative:: pt has a long history of sob and chf plus anemia. She was more sob tonight and she has been weaker. Exam Limited By: No Limitations General Appearance: Alert, Anxious, Mild Distress Ears: Normal TMs Nose: Normal Inspection Throat/Mouth: Normal Inspection Head: Atraumatic Neck: Normal Inspection Respiratory/Chest: No Respiratory Distress Cardiovascular: Regular Rate, Rhythm GI/Abdominal: Soft, Non-Tender (Female) Exam: Deferred Rectal (Female) Exam: Deferred Back Exam: Normal Inspection Extremities: Normal Inspection Neurological: Alert, Oriented, Normal Cognition Psychiatric: Normal Affect Course - Vital Signs Last Recorded V/S: Last Vital Signs Temp 36.8 C 05/20/17 03:04 Pulse 66 05/20/17 03:04 Resp 12 05/20/17 03:04 BP 140/57 L 05/20/17 03:04 Pulse Ox 98 05/20/17 03:04 - Orders/Labs/Meds Orders: Active Orders 24 hr Category Date Time Status Chest 2V [CR] Stat Exams 05/20/17 00:58 Taken CULTURE URINE [RM] Stat Lab 05/20/17 02:37 Received Sodium Chloride 0.9% [Saline Flush] Med 05/20/17 02:34 Active 10 ml FLUSH ASDIRECTED PRN Saline Lock Insert [OM.PC] Routine Oth 05/20/17 02:34 Ordered Medication Orders Sodium Chloride (Saline Flush) 10 ml FLUSH ASDIRECTED PRN PRN Reason: Keep Vein Open Last Admin: 05/20/17 02:50 Dose: 10 ml Labs: Laboratory Tests 05/20/17 05/20/17 05/20/17 Range/Units 00:57 00:57 01:52 WBC 17.4 H (4.5-11.0) K/uL RBC 2.56 L (3.30-5.50) M/uL Hgb 11.4 L D (12.0-15.0) g/dL Hct 26.6 L (36.0-48.0) % MCV 104 H (80-98) fL MCH 45 H (27-31) pg MCHC 43 H (32-36) % Plt Count 281 (150-400) K/uL Neut % (Auto) 70 H (36-66) % Lymph % (Auto) 18 L (24-44) % [place] % (Auto) 11 H (2-6) % Eos % (Auto) 1 L (2-4) % Baso % (Auto) 0 (0-1) % Sodium 137 L (140-148) mmol/L Potassium 3.7 (3.6-5.2) mmol/L Chloride 102 (100-108) mmol/L Carbon Dioxide 23 (21-32) mmol/L Anion Gap 15.7 H (5.0-14.0) mmol/L BUN 18 (7-18) mg/dL Creatinine 1.3 H (0.6-1.0) mg/dL Est Cr Clr Drug Dosing 33.65 mL/min Estimated GFR (MDRD) 40 L (>60) Glucose 120 H (74-106) mg/dL Lactic Acid (0.4-2.0) mmol/L Calcium 8.5 (8.5-10.1) mg/dL Total Bilirubin 0.4 D (0.2-1.0) mg/dL AST 24 (15-37) U/L ALT 27 (12-78) U/L Alkaline Phosphatase 118 H (46-116) U/L NT-Pro-B Natriuret Pep 517 H (5-450) pg/mL Total Protein 7.1 (6.4-8.2) g/dL Albumin 3.3 L (3.4-5.0) g/dL Globulin 3.8 H (2.3-3.5) g/dL Albumin/Globulin Ratio 0.9 L (1.2-2.2) Urine Color Urine Appearance Urine pH (4.5-8.0) Ur Specific [place] (1.008-1.030) Urine Protein (NEGATIVE) mg/dL Urine Glucose (UA) (NEGATIVE) mg/dL Urine Ketones (NEGATIVE) mg/dL Urine Occult Blood (NEGATIVE) Urine Nitrite (NEGATIVE) Urine Bilirubin (NEGATIVE) Urine Urobilinogen (NORMAL) mg/dL Ur Leukocyte Esterase (NEGATIVE) Urine RBC (0-5) Urine WBC (0-5) Ur Epithelial Cells Amorphous Sediment Urine Bacteria Urine Mucus 05/20/17 05/20/17 Range/Units 01:58 02:34 WBC (4.5-11.0) K/uL RBC (3.30-5.50) M/uL Hgb (12.0-15.0) g/dL Hct (36.0-48.0) % MCV (80-98) fL MCH (27-31) pg MCHC (32-36) % Plt Count (150-400) K/uL Neut % (Auto) (36-66) % Lymph % (Auto) (24-44) % [place] % (Auto) (2-6) % Eos % (Auto) (2-4) % Baso % (Auto) (0-1) % Sodium (140-148) mmol/L Potassium (3.6-5.2) mmol/L Chloride (100-108) mmol/L Carbon Dioxide (21-32) mmol/L Anion Gap (5.0-14.0) mmol/L BUN (7-18) mg/dL Creatinine (0.6-1.0) mg/dL Est Cr Clr Drug Dosing mL/min Estimated GFR (MDRD) (>60) Glucose (74-106) mg/dL Lactic Acid 1.5 (0.4-2.0) mmol/L Calcium (8.5-10.1) mg/dL Total Bilirubin (0.2-1.0) mg/dL AST (15-37) U/L ALT (12-78) U/L Alkaline Phosphatase (46-116) U/L NT-Pro-B Natriuret Pep (5-450) pg/mL Total Protein (6.4-8.2) g/dL Albumin (3.4-5.0) g/dL Globulin (2.3-3.5) g/dL Albumin/Globulin Ratio (1.2-2.2) Urine Color Yellow Urine Appearance Cloudy Urine pH 8.0 (4.5-8.0) Ur Specific [place] 1.010 (1.008-1.030) Urine Protein Negative (NEGATIVE) mg/dL Urine Glucose (UA) Normal (NEGATIVE) mg/dL Urine Ketones Negative (NEGATIVE) mg/dL Urine Occult Blood Negative (NEGATIVE) Urine Nitrite Negative (NEGATIVE) Urine Bilirubin Negative (NEGATIVE) Urine Urobilinogen Normal (NORMAL) mg/dL Ur Leukocyte Esterase Large (NEGATIVE) Urine RBC 0-5 (0-5) Urine WBC 10-20 H (0-5) Ur Epithelial Cells Few Amorphous Sediment Not seen Urine Bacteria Moderate Urine Mucus Few Meds: Medications Generic Name Dose Route Start Last Admin Trade Name Freq PRN Reason Stop Dose Admin Sodium Chloride 10 ml 05/20/17 02:34 05/20/17 02:50 Saline Flush FLUSH 10 ml ASDIRECTED PRN Administration Keep Vein Open Discontinued Medications Generic Name Dose Route Start Last Admin Trade Name Freq PRN Reason Stop Dose Admin Furosemide 60 mg 05/20/17 02:34 05/20/17 02:54 Lasix IVPUSH 05/20/17 02:35 60 mg ONETIME ONE Administration Ceftriaxone Sodium 1 gm/ 50 mls @ 100 mls/hr 05/20/17 02:35 05/20/17 03:00 Sodium Chloride IV 05/20/17 03:04 100 mls/hr ONETIME ONE Administration - Re-Assessments/Exams Free Text/Narrative Re-Assessment/Exam: 05/20/17 03:20 hg was good for her. Her wbc was mildly elevated. Her urine was found to be infected. A culture was set up. Pt was given lasix 60 because of a bnp greater than 500 and she was given rocephen 1 gm iv. Departure - Departure Time of Disposition: 03:21 Disposition: Home, Self-Care 01 Condition: Fair Clinical Impression: UTI (urinary tract infection), Anemia, Fluid overload - Discharge Information Referrals: PCP,None [Primary Care Provider] - Forms: ED Department Discharge Care Plan Goals: cipro 250 1 tab bid, cont other meds, - My Orders Last 24 Hours: My Active Orders 05/20/17 00:58 Chest 2V [CR] Stat 05/20/17 02:34 Sodium Chloride 0.9% [Saline Flush] 10 ml FLUSH ASDIRECTED PRN Saline Lock Insert [OM.PC] Routine 05/20/17 02:37 CULTURE URINE [RM] Stat - Assessment/Plan Last 24 Hours: My Active Orders 05/20/17 00:58 Chest 2V [CR] Stat 05/20/17 02:34 Sodium Chloride 0.9% [Saline Flush] 10 ml FLUSH ASDIRECTED PRN Saline Lock Insert [OM.PC] Routine 05/20/17 02:37 CULTURE URINE [RM] Stat
--- NOTE | 2017-05-21 09:21 | CR ---
Heart size within normal limits. Mild interstitial thickening which may indicate mild interstitial ed dinora. No focal consolidation.
== END 2017-05-20 04:36 | disposition home or self-care (01) ==
LOC: JP.ED 23:41
DX: N39.0 Urinary tract infection, site not specified (principal); D64.9 Anemia, unspecified; E87.70 Fluid overload, unspecified; E78.00 Pure hypercholesterolemia, unspecified; I10 Essential (primary) hypertension; F17.210 Nicotine dependence, cigarettes, uncomplicated; Z88.6 Allergy status to analgesic agent; Z88.8 Allergy status to other drugs, medicaments and biological substances; Z79.899 Other long term (current) drug therapy
CPT/HCPCS: 36415; 71020; 80053; 81001; 83605; 83880; 85025; 87086; 87088; 87186; 96365; 96375; 99285; J0696; J1940; J7050; 99284

== ENCOUNTER 2017-11-02 11:41 | Emergency (ER) | payer MEDICARE ==
--- NOTE | 2017-11-02 14:14 | EDM.PDOC ---
ED HPI GENERAL MEDICAL PROBLEM - General Chief Complaint: Genitourinary Problem Stated Complaint: UTI, BACK PAIN Time Seen by Provider: 11/02/17 12:47 Source of Information: Reports: Patient, RN Notes Reviewed History Limitations: Reports: No Limitations - History of Present Illness INITIAL COMMENTS - FREE TEXT/NARRATIVE: 76-year-old female presents to the emergency department with complaint of low back pain, she was recently diagnosed with urinary tract infection 3 days prior started on antibiotics of Keflex she states she's had a day and half of antibiotics and does not feel any better has not had any fevers. - Related Data Allergies Allergy/AdvReac Type Severity Reaction Status Date / Time diclofenac [From Voltaren] Allergy Cannot Verified 11/02/17 13:06 Remember tramadol Allergy Cannot Verified 11/02/17 13:06 Remember aspirin AdvReac Intermediate Syncope Verified 11/02/17 13:06 ibuprofen AdvReac Intermediate Syncope Verified 11/02/17 13:06 Home Meds: Home Meds Losartan [Cozaar] 50 tab PO DAILY 04/30/15 [History] atorvaSTATin [Lipitor] 40 mg PO BEDTIME #30 tablet 05/01/15 [Rx] Albuterol [Ventolin HFA] 1 puff .XX Q4H PRN 09/26/15 [History] Apixaban [Eliquis] 5 mg PO BID 09/26/15 [History] Calcium Carbonate/Vitamin D3 [Calcium 600-Vit D3 400 Tablet] 1 tab PO BID [History] Magnesium Oxide 400 mg PO BID 09/26/15 [History] Cholecalciferol (Vitamin D3) [Vitamin D3] 1,000 units PO DAILY 11/29/15 [History ] Cyanocobalamin (Vitamin B-12) [B-12] 500 mcg PO DAILY 11/29/15 [History] Docusate Sodium [Colace] 100 mg PO BID 11/29/15 [History] Ipratropium [Atrovent HFA] 2 puff IH QID 11/29/15 [History] Loratadine 10 mg PO DAILY 11/29/15 [History] Polyethylene Glycol 3350 [Miralax] 17 gm PO ASDIRECTED 11/29/15 [History] Multivitamins [Tab-A-Sarah] 1 tab PO DAILY 01/02/16 [History] Sodium Chloride [Deep Sea] 1 - 2 spray NASBOTH ASDIRECTED 01/02/16 [History] Pantoprazole [ProTONIX] 40 mg PO DAILY 01/04/16 [History] Cyclobenzaprine [Flexeril] 5 mg PO BEDTIME 12/27/16 [History] Hydrocodone/Acetaminophen [Hydrocodon-Acetaminophen 5-325] 1 tab PO Q6H PRN 08/10 [History] Ciprofloxacin HCl 250 mg PO BID #7 tablet 12/30/16 [Rx] Amiodarone [Cordarone] 200 mg PO DAILY 11/02/17 [History] Cephalexin [Keflex] 500 mg PO Q8H 11/02/17 [History] Furosemide [Lasix] 20 mg PO DAILY 11/02/17 [History] Levothyroxine 25 mcg PO ACBREAKFAST 11/02/17 [History] Metoprolol Succinate [Toprol XL] 25 mg PO DAILY 11/02/17 [History] Mirtazapine [Remeron] 15 mg PO BEDTIME 11/02/17 [History] Ranitidine HCl [Zantac] 150 mg PO BID 11/02/17 [History] Sertraline [Zoloft] 100 mg PO DAILY 11/02/17 [History] Past Medical History HEENT History: Reports: Allergic Rhinitis, Cataract, Impaired Vision Cardiovascular History: Reports: Afib, Heart Failure, Heart Murmur, High Cholesterol, Hypertension Respiratory History: Reports: Bronchitis, Recurrent, COPD, Pneumonia, Recurrent Gastrointestinal History: Reports: Chronic Constipation, Gastritis, GERD Genitourinary History: Reports: Renal Calculus, UTI, Recurrent Other Genitourinary History: mass of urinary bladder. 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, Musculoskeletal History: Reports: Arthritis, Back Pain, Chronic, Osteoarthritis , RA Neurological History: Reports: CVA, Migraines, Vertigo Psychiatric History: Reports: Depression Endocrine/Metabolic History: Reports: Vitamin D Deficiency Hematologic History: Reports: Anemia, B12 Deficiency, Blood Transfusion(s), Iron Deficiency, Other (See Below) 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, cold agglutinin Oncologic (Cancer) History: Reports: Lymphoma - Infectious Disease History Infectious Disease History: Reports: Chicken Pox, Measles, TB - Past Surgical History Head Surgeries/Procedures: Reports: None HEENT Surgical History: Reports: Cataract Surgery, Oral Surgery Female Surgical History: Reports: Hysterectomy Neurological Surgical History: Reports: Laminectomy, Lumbar Spine Oncologic Surgical History: Reports: Bone Marrow Aspiration Dermatological Surgical History: Reports: None Social & Family History - Family History Family Medical History: Noncontributory - Tobacco Use Smoking Status *Q: Current Every Day Smoker Years of Tobacco use: 61 Packs/Tins Daily: 0.2 - Caffeine Use Caffeine Use: Reports: Coffee, Soda - Recreational Drug Use Recreational Drug Use: No ED ROS GENERAL - Review of Systems Review Of Systems: See Below Constitutional: Denies: Fever, Chills HEENT: Reports: No Symptoms Respiratory: Reports: No Symptoms Cardiovascular: Reports: No Symptoms GI/Abdominal: Reports: Abdominal Pain : Reports: Dysuria Musculoskeletal: Reports: Back Pain ED EXAM, RENAL/ - Physical Exam Exam: See Below Exam Limited By: No Limitations General Appearance: Alert, WD/WN, No Apparent Distress Respiratory/Chest: No Respiratory Distress, Lungs Clear, No Accessory Muscle Use , Chest Non-Tender, Decreased Breath Sounds Cardiovascular: Regular Rate, Rhythm, Systolic Murmur GI/Abdominal: Soft, Non-Tender Back Exam: Normal Inspection, Full Range of Motion, CVA Tenderness (R). No: CVA Tenderness (L) Course - Vital Signs Last Recorded V/S: Last Vital Signs Temp 96.3 F 11/02/17 12:33 Pulse 60 11/02/17 15:20 Resp 18 11/02/17 15:20 BP 147/46 H 11/02/17 15:20 Pulse Ox 97 11/02/17 15:20 - Orders/Labs/Meds Orders: Active Orders 24 hr Category Date Time Status Peripheral IV Care [RC] . DIRECTED Care 11/02/17 14:18 Active Abdomen Pelvis wo Cont [CT] Stat Exams 11/02/17 14:17 Taken UA W/MICROSCOPIC [URIN] Urgent Lab 11/02/17 13:57 Ordered Sodium Chloride 0.9% [Normal Saline] 1,000 ml Med 11/02/17 14:30 Active IV ASDIRECTED Sodium Chloride 0.9% [Saline Flush] Med 11/02/17 14:18 Active 10 ml FLUSH ASDIRECTED PRN Peripheral IV Insertion Adult [OM.PC] Urgent Oth 11/02/17 14:18 Ordered Medication Orders Sodium Chloride (Normal Saline) 1,000 mls @ 500 mls/hr IV ASDIRECTED AUGUSTINE Last Admin: 11/02/17 15:08 Dose: 500 mls/hr Sodium Chloride (Saline Flush) 10 ml FLUSH ASDIRECTED PRN PRN Reason: Keep Vein Open Labs: Laboratory Tests 11/02/17 11/02/17 11/02/17 Range/Units 13:57 14:32 14:32 WBC 8.9 (4.5-11.0) K/uL RBC 1.63 L (3.30-5.50) M/uL Hgb 12.6 (12.0-15.0) g/dL Hct 18.6 L (36.0-48.0) % MCV 114 H (80-98) fL MCH 77 H (27-31) pg MCHC 68 H (32-36) % Plt Count 255 (150-400) K/uL Neut % (Auto) 69 H (36-66) % Lymph % (Auto) 20 L (24-44) % [place] % (Auto) 9 H (2-6) % Eos % (Auto) 2 (2-4) % Baso % (Auto) 0 (0-1) % Sodium 142 (140-148) mmol/L Potassium 3.7 (3.6-5.2) mmol/L Chloride 107 (100-108) mmol/L Carbon Dioxide 26 (21-32) mmol/L Anion Gap 9.2 (5.0-14.0) mmol/L BUN 21 H (7-18) mg/dL Creatinine 1.4 H (0.6-1.0) mg/dL Est Cr Clr Drug Dosing 31.24 mL/min Estimated GFR (MDRD) 37 L (>60) Glucose 134 H (74-106) mg/dL Lactic Acid (0.4-2.0) mmol/L Calcium 8.4 L (8.5-10.1) mg/dL Total Bilirubin 0.4 (0.2-1.0) mg/dL AST 30 (15-37) U/L ALT 35 (12-78) U/L Alkaline Phosphatase 130 H (46-116) U/L Total Protein 7.4 (6.4-8.2) g/dL Albumin 3.6 (3.4-5.0) g/dL Globulin 3.8 H (2.3-3.5) g/dL Albumin/Globulin Ratio 1.0 L (1.2-2.2) Urine Color Yellow Urine Appearance Slightly cloudy Urine pH 7.0 (4.5-8.0) Ur Specific [place] 1.005 L (1.008-1.030) Urine Protein Negative (NEGATIVE) mg/dL Urine Glucose (UA) Normal (NEGATIVE) mg/dL Urine Ketones Negative (NEGATIVE) mg/dL Urine Occult Blood Negative (NEGATIVE) Urine Nitrite Negative (NEGATIVE) Urine Bilirubin Negative (NEGATIVE) Urine Urobilinogen Normal (NORMAL) mg/dL Ur Leukocyte Esterase Negative (NEGATIVE) Urine RBC Not seen (0-5) Urine WBC Not seen (0-5) Ur Epithelial Cells Rare Amorphous Sediment Rare Urine Bacteria Not seen Urine Mucus Not seen 11/02/17 Range/Units 14:32 WBC (4.5-11.0) K/uL RBC (3.30-5.50) M/uL Hgb (12.0-15.0) g/dL Hct (36.0-48.0) % MCV (80-98) fL MCH (27-31) pg MCHC (32-36) % Plt Count (150-400) K/uL Neut % (Auto) (36-66) % Lymph % (Auto) (24-44) % [place] % (Auto) (2-6) % Eos % (Auto) (2-4) % Baso % (Auto) (0-1) % Sodium (140-148) mmol/L Potassium (3.6-5.2) mmol/L Chloride (100-108) mmol/L Carbon Dioxide (21-32) mmol/L Anion Gap (5.0-14.0) mmol/L BUN (7-18) mg/dL Creatinine (0.6-1.0) mg/dL Est Cr Clr Drug Dosing mL/min Estimated GFR (MDRD) (>60) Glucose (74-106) mg/dL Lactic Acid 1.0 (0.4-2.0) mmol/L Calcium (8.5-10.1) mg/dL Total Bilirubin (0.2-1.0) mg/dL AST (15-37) U/L ALT (12-78) U/L Alkaline Phosphatase (46-116) U/L Total Protein (6.4-8.2) g/dL Albumin (3.4-5.0) g/dL Globulin (2.3-3.5) g/dL Albumin/Globulin Ratio (1.2-2.2) Urine Color Urine Appearance Urine pH (4.5-8.0) Ur Specific [place] (1.008-1.030) Urine Protein (NEGATIVE) mg/dL Urine Glucose (UA) (NEGATIVE) mg/dL Urine Ketones (NEGATIVE) mg/dL Urine Occult Blood (NEGATIVE) Urine Nitrite (NEGATIVE) Urine Bilirubin (NEGATIVE) Urine Urobilinogen (NORMAL) mg/dL Ur Leukocyte Esterase (NEGATIVE) Urine RBC (0-5) Urine WBC (0-5) Ur Epithelial Cells Amorphous Sediment Urine Bacteria Urine Mucus Meds: Medications Generic Name Dose Route Start Last Admin Trade Name Freq PRN Reason Stop Dose Admin Sodium Chloride 1,000 mls @ 500 mls/hr 11/02/17 14:30 11/02/17 15:08 Normal Saline IV 500 mls/hr ASDIRECTED AUGUSTINE Administration Sodium Chloride 10 ml 11/02/17 14:18 Saline Flush FLUSH ASDIRECTED PRN Keep Vein Open Discontinued Medications Generic Name Dose Route Start Last Admin Trade Name Freq PRN Reason Stop Dose Admin Sodium Chloride 100 mls @ 3 mls/sec 11/02/17 14:30 Normal Saline IV ASDIRECTED AUGUSTINE Iopamidol 100 ml 11/02/17 14:30 Isovue-300 (61%) IV . DIRECTED AUGUSTINE Departure - Departure Time of Disposition: 16:06 Disposition: Home, Self-Care 01 Condition: Good Clinical Impression: Functional constipation - Discharge Information Referrals: PCP,None [Primary Care Provider] - Forms: ED Department Discharge Additional Instructions: Complete your course of antibiotics, follow-up colonoscopy prep with MiraLAX until loose stools, Please followup with your primary care provider in 3-5 days if not better, please call return to the emergency department with worsening of symptoms. - My Orders Last 24 Hours: My Active Orders 11/02/17 13:57 UA W/MICROSCOPIC [URIN] Urgent 11/02/17 14:17 Abdomen Pelvis wo Cont [CT] Stat 11/02/17 14:18 Peripheral IV Care [RC] . DIRECTED Sodium Chloride 0.9% [Saline Flush] 10 ml FLUSH ASDIRECTED PRN Peripheral IV Insertion Adult [OM.PC] Urgent 11/02/17 14:30 Sodium Chloride 0.9% [Normal Saline] 1,000 ml IV ASDIRECTED - Assessment/Plan Last 24 Hours: My Active Orders 11/02/17 13:57 UA W/MICROSCOPIC [URIN] Urgent 11/02/17 14:17 Abdomen Pelvis wo Cont [CT] Stat 11/02/17 14:18 Peripheral IV Care [RC] . DIRECTED Sodium Chloride 0.9% [Saline Flush] 10 ml FLUSH ASDIRECTED PRN Peripheral IV Insertion Adult [OM.PC] Urgent 11/02/17 14:30 Sodium Chloride 0.9% [Normal Saline] 1,000 ml IV ASDIRECTED Plan: Assessment Acuity = acute Site and laterality = functional constipation complicated in a patient with recurrent urinary tract infection who self catheters Etiology = slow transit time Manifestations = abdominal pain Location of injury = Home Lab values = CBC unremarkable, creatinine elevated 1.4 consistent with chronic renal failure stage G IIIB, urinalysis negative, lactic acid within normal limits at 1.0 CT scan shows no acute process in the abdomen other than large amount of stool in the colon Plan I did review laboratory and CT scan results with her plan is to follow-up colonoscopy prep with MiraLAX follow-up with primary care 3-5 days if no better This note was dictated using [employer] voice recognition software please call with any questions on syntax or grammar.
[2017-11-02] MEDS ORDERED: Sodium Chloride 0.9% 10 ML Syringe FLUSH PRN (14:18)
[2017-11-02] MEDS ORDERED: Sodium Chloride 0.9% 1,000 ML IV SCH (14:30)
[2017-11-02] MEDS ORDERED: Iopamidol 612 MG/ML 100 ML Bottle IV SCH (14:30)
[2017-11-02] MEDS ORDERED: Sodium Chloride 0.9% 100 ML IV SCH (14:30)
[2017-11-02 15:21] VITALS: BP 147/46
== END 2017-11-02 16:51 | disposition home or self-care (01) ==
LOC: JP.ED 11:41
DX: K59.04 Chronic idiopathic constipation (principal); N39.0 Urinary tract infection, site not specified; I11.0 Hypertensive heart disease with heart failure; I50.9 Heart failure, unspecified; M19.90 Unspecified osteoarthritis, unspecified site; F17.210 Nicotine dependence, cigarettes, uncomplicated; I48.91 Unspecified atrial fibrillation; D64.9 Anemia, unspecified; J44.9 Chronic obstructive pulmonary disease, unspecified; Z88.5 Allergy status to narcotic agent; Z88.6 Allergy status to analgesic agent; Z88.8 Allergy status to other drugs, medicaments and biological substances; Z79.899 Other long term (current) drug therapy
CPT/HCPCS: 36415; 74176; 80053; 81001; 83605; 85025; 96360; 96361; 99284; J7030

== ENCOUNTER 2018-06-09 16:48 | Emergency (ER) | payer MEDICARE, MEDICAID ==
--- NOTE | 2018-06-09 18:00 | EDM.PDOC ---
ED HPI GENERAL MEDICAL PROBLEM - General Chief Complaint: Gastrointestinal Problem Stated Complaint: ILLNESS Time Seen by Provider: 06/09/18 17:30 Source of Information: Reports: Patient, Family History Limitations: Reports: No Limitations - History of Present Illness INITIAL COMMENTS - FREE TEXT/NARRATIVE: 77-year-old female with a chronic GI bleed, recurring anemia issues who presents with her granddaughter asking for a hemoglobin check because she has had increased hip and shoulder discomfort which happens when her hemoglobin falls. She's also had some darker stools over the past 3 days. No nausea or vomiting, denies abdominal pain, shortness of breath or significant weakness. Onset: Gradual Duration: Day(s): (last 3 days) Associated Symptoms: Reports: Other (Left hip and left shoulder discomfort). Denies: Confusion, Headaches, Loss of Appetite, Malaise, Nausea/Vomiting, Shortness of Breath - Related Data Allergies Allergy/AdvReac Type Severity Reaction Status Date / Time diclofenac [From Voltaren] Allergy Cannot Verified 06/09/18 17:08 Remember tramadol Allergy Cannot Verified 06/09/18 17:08 Remember ibuprofen AdvReac Intermediate Syncope Verified 06/09/18 17:08 Home Meds: Home Meds Losartan [Cozaar] 50 tab PO DAILY 04/30/15 [History] atorvaSTATin [Lipitor] 40 mg PO BEDTIME #30 tablet 05/01/15 [Rx] Albuterol [Ventolin HFA] 1 puff .XX Q4H PRN 09/26/15 [History] Apixaban [Eliquis] 5 mg PO BID 09/26/15 [History] Calcium Carbonate/Vitamin D3 [Calcium 600-Vit D3 400 Tablet] 1 tab PO BID [History] Magnesium Oxide 400 mg PO BID 09/26/15 [History] Cholecalciferol (Vitamin D3) [Vitamin D3] 1,000 units PO DAILY 11/29/15 [History ] Cyanocobalamin (Vitamin B-12) [B-12] 500 mcg PO DAILY 11/29/15 [History] Docusate Sodium [Colace] 100 mg PO BID 11/29/15 [History] Ipratropium [Atrovent HFA] 2 puff IH QID 11/29/15 [History] Loratadine 10 mg PO DAILY 11/29/15 [History] Polyethylene Glycol 3350 [Miralax] 17 gm PO ASDIRECTED 11/29/15 [History] Multivitamins [Tab-A-Sarah] 1 tab PO DAILY 01/02/16 [History] Sodium Chloride [Deep Sea] 1 - 2 spray NASBOTH ASDIRECTED 01/02/16 [History] Pantoprazole [ProTONIX] 40 mg PO DAILY 01/04/16 [History] Cyclobenzaprine [Flexeril] 5 mg PO BEDTIME 12/27/16 [History] Hydrocodone/Acetaminophen [Hydrocodon-Acetaminophen 5-325] 1 tab PO Q6H PRN 08/10 [History] Ciprofloxacin HCl 250 mg PO BID #7 tablet 12/30/16 [Rx] Amiodarone [Cordarone] 200 mg PO DAILY 11/02/17 [History] Furosemide [Lasix] 20 mg PO DAILY 11/02/17 [History] Levothyroxine 25 mcg PO ACBREAKFAST 11/02/17 [History] Metoprolol Succinate [Toprol XL] 25 mg PO DAILY 11/02/17 [History] Mirtazapine [Remeron] 15 mg PO BEDTIME 11/02/17 [History] Ranitidine HCl [Zantac] 150 mg PO BID 11/02/17 [History] Sertraline [Zoloft] 100 mg PO DAILY 11/02/17 [History] cephALEXin [Keflex] 500 mg PO Q8H 11/02/17 [History] Past Medical History HEENT History: Reports: Allergic Rhinitis, Cataract, Impaired Vision Cardiovascular History: Reports: Afib, Heart Failure, Heart Murmur, High Cholesterol, Hypertension Respiratory History: Reports: Bronchitis, Recurrent, COPD, Pneumonia, Recurrent Gastrointestinal History: Reports: Chronic Constipation, Gastritis, GERD, GI Bleed Genitourinary History: Reports: Renal Calculus, UTI, Recurrent Other Genitourinary History: mass of urinary bladder. 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, Musculoskeletal History: Reports: Arthritis, Back Pain, Chronic, Osteoarthritis , RA Neurological History: Reports: CVA, Migraines, Vertigo Psychiatric History: Reports: Depression Endocrine/Metabolic History: Reports: Vitamin D Deficiency Hematologic History: Reports: Anemia, B12 Deficiency, Blood Transfusion(s), Iron Deficiency, Other (See Below) 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, cold agglutinin Immunologic History: Reports: None Oncologic (Cancer) History: Reports: Lymphoma Dermatologic History: Reports: None - Infectious Disease History Infectious Disease History: Reports: Chicken Pox, Measles, TB - Past Surgical History Head Surgeries/Procedures: Reports: None HEENT Surgical History: Reports: Cataract Surgery, Oral Surgery GI Surgical History: Reports: Cholecystectomy, EGD Female Surgical History: Reports: Hysterectomy Neurological Surgical History: Reports: Laminectomy, Lumbar Spine Oncologic Surgical History: Reports: Bone Marrow Aspiration Social & Family History - Family History Family Medical History: Noncontributory - Tobacco Use Smoking Status *Q: Light Tobacco Smoker Years of Tobacco use: 60 Packs/Tins Daily: 0.3 - Caffeine Use Caffeine Use: Reports: Coffee, Soda - Recreational Drug Use Recreational Drug Use: No ED ROS GENERAL - Review of Systems Review Of Systems: See Below Constitutional: Denies: Fever, Chills, Malaise HEENT: Reports: No Symptoms Respiratory: Denies: Shortness of Breath Cardiovascular: Denies: Chest Pain GI/Abdominal: Reports: Bloody Stool, Hematochezia. Denies: Abdominal Pain, Nausea, Vomiting Skin: Reports: Pallor Neurological: Denies: Dizziness, Headache Psychiatric: Reports: No Symptoms ED EXAM, GENERAL - Physical Exam Exam: See Below Exam Limited By: No Limitations General Appearance: Alert, No Apparent Distress Eye Exam: Bilateral Eye: Other (Mild bilateral conjunctival pallor) Head: Atraumatic Respiratory/Chest: No Respiratory Distress, Lungs Clear Cardiovascular: Regular Rate, Rhythm GI/Abdominal: Normal Bowel Sounds, Soft, Non-Tender Extremities: Other (Left shoulder is tender to palpate, especially under the before meals joint and anteriorly. She has marked limitations of abduction and external rotation due to weakness and pain.) Neurological: Alert, Oriented Skin Exam: Warm, Dry, Other (She does appear somewhat pale) Course - Vital Signs Last Recorded V/S: Last Vital Signs Temp 97.0 F 06/09/18 17:07 Pulse 62 06/09/18 18:06 Resp 16 06/09/18 18:06 BP 153/56 H 06/09/18 18:06 Pulse Ox 97 06/09/18 18:06 - Orders/Labs/Meds Labs: Laboratory Tests 06/09/18 Range/Units 17:39 WBC 9.1 (4.5-11.0) K/uL RBC (3.30-5.50) M/uL Hgb 12.5 (12.0-15.0) g/dL Hct (36.0-48.0) % MCV (80-98) fL MCH (27-31) pg MCHC (32-36) % Plt Count 288 (150-400) K/uL Neut % (Auto) 68 H (36-66) % Lymph % (Auto) 21 L (24-44) % [place] % (Auto) 9 H (2-6) % Eos % (Auto) 2 (2-4) % Baso % (Auto) 0 (0-1) % - Re-Assessments/Exams Free Text/Narrative Re-Assessment/Exam: 06/09/18 17:59 CBC was drawn. If the hemoglobin is 9 or higher the patient wants to be discharged and recheck at [facility] in [place] tomorrow. If lower than something more urgent may be needed. 06/09/18 18:14 CBC returned hemoglobin is 12.5. The patient was reassured and will recheck tomorrow at [facility] if symptoms continue. She can return sooner if she gets significantly worse rapidly or has other concerns. A copy of her lab was given to the patient. Departure - Departure Time of Disposition: 18:34 Disposition: Home, Self-Care 01 Condition: Good Clinical Impression: Left hip pain GI bleed Qualifiers: GI bleed type/associated pathology: gastritis Gastritis type: chronic gastritis Qualified Code(s): K29.51 - Unspecified chronic gastritis with bleeding Left shoulder pain Qualifiers: Chronicity: unspecified Qualified Code(s): M25.512 - Pain in left shoulder - Discharge Information Instructions: Gastrointestinal Bleeding, [id number] Referrals: Adams Ramachandran NP [Primary Care Provider] - Forms: ED Department Discharge Care Plan Goals: Recheck tomorrow if concerns of decreasing hemoglobin. Consider orthopedic consultation regarding the left shoulder at your earliest and next convenience. Return to the emergency room urgently if bleeding becomes worse rapidly or you develop more symptoms.
[2018-06-09 18:07] VITALS: BP 153/56
== END 2018-06-09 18:34 | disposition home or self-care (01) ==
LOC: JP.ED 16:48
DX: K29.51 Unspecified chronic gastritis with bleeding (principal); M25.552 Pain in left hip; M25.512 Pain in left shoulder; I11.0 Hypertensive heart disease with heart failure; I50.9 Heart failure, unspecified; E78.00 Pure hypercholesterolemia, unspecified; F17.210 Nicotine dependence, cigarettes, uncomplicated; Z88.8 Allergy status to other drugs, medicaments and biological substances; Z88.5 Allergy status to narcotic agent; Z86.73 Personal history of transient ischemic attack (TIA), and cerebral infarction without residual deficits; Z88.6 Allergy status to analgesic agent; Z79.899 Other long term (current) drug therapy
CPT/HCPCS: 36415; 85025; 99284

== ENCOUNTER 2018-07-15 14:42 | Emergency (ER) | payer MEDICARE, MEDICAID ==
[2018-07-15 15:09] VITALS: BP 140/47
[2018-07-15] MEDS ORDERED: fentaNYL 100 MCG/2 ML SDV IM ONE (15:55)
--- NOTE | 2018-07-15 16:01 | EDM.PDOC ---
ED HPI GENERAL MEDICAL PROBLEM - General Chief Complaint: Back Pain or Injury Stated Complaint: fracture in back trouble with legs at night Time Seen by Provider: 07/15/18 15:47 Source of Information: Reports: Patient, Family, RN Notes Reviewed History Limitations: Reports: No Limitations - History of Present Illness INITIAL COMMENTS - FREE TEXT/NARRATIVE: 77-year-old female presents emergency department with 2 issues she has a known history of anemia would like to have her hemoglobin checked also she has known history of L3 compression fracture site which she is taking oxycodone for she would like to try something different for pain. She elected to come to the emergency department because it was closer than her primary care clinic Back Pain Score (Numeric/FACES): 10 - Related Data Allergies Allergy/AdvReac Type Severity Reaction Status Date / Time diclofenac [From Voltaren] Allergy Cannot Verified 06/29/18 13:06 Remember tramadol Allergy Cannot Verified 06/29/18 13:06 Remember ibuprofen AdvReac Intermediate Syncope Verified 06/29/18 13:06 Home Meds: Home Meds Losartan [Cozaar] 50 tab PO DAILY 04/30/15 [History] atorvaSTATin [Lipitor] 40 mg PO BEDTIME #30 tablet 05/01/15 [Rx] Albuterol [Ventolin HFA] 1 puff .XX Q4H PRN 09/26/15 [History] Apixaban [Eliquis] 5 mg PO BID 09/26/15 [History] Calcium Carbonate/Vitamin D3 [Calcium 600-Vit D3 400 Tablet] 1 tab PO BID [History] Magnesium Oxide 400 mg PO BID 09/26/15 [History] Cholecalciferol (Vitamin D3) [Vitamin D3] 1,000 units PO DAILY 11/29/15 [History ] Cyanocobalamin (Vitamin B-12) [B-12] 500 mcg PO DAILY 11/29/15 [History] Docusate Sodium [Colace] 100 mg PO BID 11/29/15 [History] Ipratropium [Atrovent HFA] 2 puff IH QID 11/29/15 [History] Loratadine 10 mg PO DAILY 11/29/15 [History] Polyethylene Glycol 3350 [Miralax] 17 gm PO ASDIRECTED 11/29/15 [History] Multivitamins [Tab-A-Sarah] 1 tab PO DAILY 01/02/16 [History] Sodium Chloride [Deep Sea] 1 - 2 spray NASBOTH ASDIRECTED 01/02/16 [History] Pantoprazole [ProTONIX] 40 mg PO DAILY 01/04/16 [History] Cyclobenzaprine [Flexeril] 5 mg PO BEDTIME 12/27/16 [History] Hydrocodone/Acetaminophen [Hydrocodon-Acetaminophen 5-325] 1 tab PO Q6H PRN 08/10 [History] Ciprofloxacin HCl 250 mg PO BID #7 tablet 12/30/16 [Rx] Amiodarone [Cordarone] 200 mg PO DAILY 11/02/17 [History] Furosemide [Lasix] 20 mg PO DAILY 11/02/17 [History] Levothyroxine 25 mcg PO ACBREAKFAST 11/02/17 [History] Metoprolol Succinate [Toprol XL] 25 mg PO DAILY 11/02/17 [History] Mirtazapine [Remeron] 15 mg PO BEDTIME 11/02/17 [History] Ranitidine HCl [Zantac] 150 mg PO BID 11/02/17 [History] Sertraline [Zoloft] 100 mg PO DAILY 11/02/17 [History] Past Medical History HEENT History: Reports: Allergic Rhinitis, Cataract, Impaired Vision Cardiovascular History: Reports: Afib, Heart Failure, Heart Murmur, High Cholesterol, Hypertension Respiratory History: Reports: Bronchitis, Recurrent, COPD, Pneumonia, Recurrent Gastrointestinal History: Reports: Chronic Constipation, Gastritis, GERD, GI Bleed Genitourinary History: Reports: Renal Calculus, UTI, Recurrent Other Genitourinary History: mass of urinary bladder. 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, Musculoskeletal History: Reports: Arthritis, Back Pain, Chronic, Osteoarthritis , RA Neurological History: Reports: CVA, Migraines, Vertigo Psychiatric History: Reports: Depression Endocrine/Metabolic History: Reports: Vitamin D Deficiency Hematologic History: Reports: Anemia, B12 Deficiency, Blood Transfusion(s), Iron Deficiency, Other (See Below) 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, cold agglutinin Immunologic History: Reports: None Oncologic (Cancer) History: Reports: Lymphoma Dermatologic History: Reports: None - Infectious Disease History Infectious Disease History: Reports: Chicken Pox, Measles, TB - Past Surgical History Head Surgeries/Procedures: Reports: None HEENT Surgical History: Reports: Cataract Surgery, Oral Surgery GI Surgical History: Reports: Cholecystectomy, EGD Female Surgical History: Reports: Hysterectomy Neurological Surgical History: Reports: Laminectomy, Lumbar Spine Oncologic Surgical History: Reports: Bone Marrow Aspiration Social & Family History - Family History Family Medical History: Noncontributory - Tobacco Use Smoking Status *Q: Former Smoker Used Tobacco, but Quit: No - Caffeine Use Caffeine Use: Reports: Coffee - Recreational Drug Use Recreational Drug Use: No ED ROS GENERAL - Review of Systems Review Of Systems: ROS reveals no pertinent complaints other than HPI. ED EXAM,LOWER BACK PAIN/INJURY - Physical Exam Exam: See Below Exam Limited By: No Limitations General Appearance: Alert, WD/WN, No Apparent Distress Respiratory/Chest: No Respiratory Distress Course - Vital Signs Last Recorded V/S: Last Vital Signs Temp 97.6 F 07/15/18 15:08 Pulse 66 07/15/18 15:08 Resp 18 07/15/18 15:08 BP 140/47 L 07/15/18 15:08 Pulse Ox - Orders/Labs/Meds Labs: Laboratory Tests 07/15/18 Range/Units 16:55 WBC 8.0 (4.5-11.0) K/uL RBC (3.30-5.50) M/uL Hgb 9.8 L D (12.0-15.0) g/dL Hct (36.0-48.0) % MCV (80-98) fL MCH (27-31) pg MCHC (32-36) % Plt Count 337 (150-400) K/uL Neut % (Auto) 67 H (36-66) % Lymph % (Auto) 22 L (24-44) % [place] % (Auto) 9 H (2-6) % Eos % (Auto) 2 (2-4) % Baso % (Auto) 0 (0-1) % Meds: Medications Discontinued Medications Generic Name Dose Route Start Last Admin Trade Name Freq PRN Reason Stop Dose Admin Fentanyl 50 mcg 07/15/18 15:55 07/15/18 16:27 Sublimaze IM 07/15/18 15:56 50 mcg ONETIME ONE Administration Departure - Departure Time of Disposition: 17:24 Disposition: Home, Self-Care 01 Condition: Fair Clinical Impression: Compression fracture - Discharge Information Referrals: PCP,None [Primary Care Provider] - Forms: ED Department Discharge Additional Instructions: Continue with your regular medications, continue to follow with your primary care provider - Assessment/Plan Plan: Assessment Acuity = acute Site and laterality = back pain Etiology = compression fracture L3 Manifestations = none Location of injury = Home Lab values = hemoglobin stable at 9.8 consistent normochromic anemia Plan She had good relief from the fentanyl provided plan is discharge home she'll follow-up with her primary care provider continue to follow her hemoglobin This note was dictated using [employer] voice recognition software please call with any questions on syntax or grammar.
== END 2018-07-15 17:52 | disposition home or self-care (01) ==
LOC: JP.ED 14:42
DX: M48.56XA Collapsed vertebra, not elsewhere classified, lumbar region, initial encounter for fracture (principal); I48.91 Unspecified atrial fibrillation; E78.00 Pure hypercholesterolemia, unspecified; I10 Essential (primary) hypertension; Z86.73 Personal history of transient ischemic attack (TIA), and cerebral infarction without residual deficits; Z87.891 Personal history of nicotine dependence; Z88.5 Allergy status to narcotic agent; Z88.6 Allergy status to analgesic agent; Z79.899 Other long term (current) drug therapy
CPT/HCPCS: 36415; 85025; 96372; 99284-25; J3010

== ENCOUNTER 2018-09-23 13:24 | Emergency (ER) | payer MEDICARE, MEDICAID ==
--- NOTE | 2018-09-23 14:11 | EDM.PDOC ---
ED HPI GENERAL MEDICAL PROBLEM - General Chief Complaint: Respiratory Problem Stated Complaint: [facility] Time Seen by Provider: 09/23/18 13:50 Source of Information: Reports: Patient, Family History Limitations: Reports: No Limitations - History of Present Illness INITIAL COMMENTS - FREE TEXT/NARRATIVE: 77-year-old female was just seen 5 days ago and put on double antibiotics for "pneumonia". She's having intermittent recurring upper abdominal pain which she attributes to having pneumonia, a workup was done last including a chest x-ray and lab. She was started on Zithromax and amoxicillin. She continues to have upper abdominal cramping and discomfort, so she called her clinic to tell them she wasn't improving and they told her to come to the emergency room as she may need a CT scan of her abdomen. No fevers or chills, no significant nausea vomiting, no diarrhea. Currently while she is here in the emergency room she has no abdominal pain. Onset: Unknown/Unsure (Symptoms have been ongoing for 7-10 days) Quality: Reports: Pressure Severity: Moderate Improves with: Reports: None Worsens with: Reports: None Context: Reports: Other (Pain just spontaneously waxes and wanes, lasts just a minute or 2) Associated Symptoms: Reports: Cough, Loss of Appetite, Shortness of Breath. Denies: Nausea/Vomiting upper abdomen Pain Score (Numeric/FACES): 8 - Related Data Allergies Allergy/AdvReac Type Severity Reaction Status Date / Time diclofenac [From Voltaren] Allergy Cannot Verified 09/23/18 13:35 Remember tramadol Allergy Cannot Verified 09/23/18 13:35 Remember ibuprofen AdvReac Intermediate Syncope Verified 09/23/18 13:35 Home Meds: Home Meds Losartan [Cozaar] 50 tab PO DAILY 04/30/15 [History] atorvaSTATin [Lipitor] 40 mg PO BEDTIME #30 tablet 05/01/15 [Rx] Albuterol [Ventolin HFA] 1 puff .XX Q4H PRN 09/26/15 [History] Apixaban [Eliquis] 5 mg PO BID 09/26/15 [History] Calcium Carbonate/Vitamin D3 [Calcium 600-Vit D3 400 Tablet] 1 tab PO BID [History] Magnesium Oxide 400 mg PO BID 09/26/15 [History] Cholecalciferol (Vitamin D3) [Vitamin D3] 1,000 units PO DAILY 11/29/15 [History ] Cyanocobalamin (Vitamin B-12) [B-12] 500 mcg PO DAILY 11/29/15 [History] Docusate Sodium [Colace] 100 mg PO BID 11/29/15 [History] Ipratropium [Atrovent HFA] 2 puff IH QID 11/29/15 [History] Loratadine 10 mg PO DAILY 11/29/15 [History] Polyethylene Glycol 3350 [Miralax] 17 gm PO ASDIRECTED 11/29/15 [History] Multivitamins [Tab-A-Sarah] 1 tab PO DAILY 01/02/16 [History] Pantoprazole [ProTONIX] 40 mg PO DAILY 01/04/16 [History] Hydrocodone/Acetaminophen [Hydrocodon-Acetaminophen 5-325] 1 tab PO Q6H PRN 08/10 [History] Amiodarone [Cordarone] 200 mg PO DAILY 11/02/17 [History] Furosemide [Lasix] 20 mg PO DAILY 11/02/17 [History] Levothyroxine 25 mcg PO ACBREAKFAST 11/02/17 [History] Mirtazapine [Remeron] 7.5 mg PO BEDTIME 11/02/17 [History] Ranitidine HCl [Zantac] 150 mg PO BID 11/02/17 [History] Alendronate [Fosamax] 70 mg PO ASDIRECTED 09/23/18 [History] Calcitonin ([place]) [Miacalcin Nasal [place]] 1 spray NS DAILY 09/23/18 [History] Ferrous Sulfate 325 mg PO DAILY 09/23/18 [History] Gabapentin [Neurontin] 200 mg PO DAILY 09/23/18 [History] Lanreotide Acetate [Somatuline [place]] 90 mg SQ ASDIRECTED 09/23/18 [History] Methocarbamol 500 mg PO TID 09/23/18 [History] Metoprolol Succinate [Toprol XL] 25 mg PO DAILY 09/23/18 [History] Past Medical History HEENT History: Reports: Allergic Rhinitis, Cataract, Impaired Vision Cardiovascular History: Reports: Afib, Heart Failure, Heart Murmur, High Cholesterol, Hypertension Respiratory History: Reports: Bronchitis, Recurrent, COPD, Pneumonia, Recurrent Gastrointestinal History: Reports: Chronic Constipation, Gastritis, GERD, GI Bleed Genitourinary History: Reports: Renal Calculus, UTI, Recurrent Other Genitourinary History: mass of urinary bladder. 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, Musculoskeletal History: Reports: Arthritis, Back Pain, Chronic, Osteoarthritis , RA Neurological History: Reports: CVA, Migraines, Vertigo Psychiatric History: Reports: Depression Endocrine/Metabolic History: Reports: Hypothyroidism, Vitamin D Deficiency Hematologic History: Reports: Anemia, B12 Deficiency, Blood Transfusion(s), Iron Deficiency, Other (See Below) 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, cold agglutinin Immunologic History: Reports: None Oncologic (Cancer) History: Reports: Lymphoma Dermatologic History: Reports: None - Infectious Disease History Infectious Disease History: Reports: Chicken Pox, Measles, TB - Past Surgical History Head Surgeries/Procedures: Reports: None HEENT Surgical History: Reports: Cataract Surgery, Oral Surgery Cardiovascular Surgical History: Reports: None GI Surgical History: Reports: Cholecystectomy, EGD Female Surgical History: Reports: Hysterectomy Neurological Surgical History: Reports: Laminectomy, Lumbar Spine Oncologic Surgical History: Reports: Bone Marrow Aspiration Social & Family History - Family History Family Medical History: Noncontributory - Tobacco Use Smoking Status *Q: Current Every Day Smoker Years of Tobacco use: 70 Packs/Tins Daily: 0.5 - Caffeine Use Caffeine Use: Reports: Coffee - Recreational Drug Use Recreational Drug Use: No ED ROS GENERAL - Review of Systems Review Of Systems: See Below Constitutional: Denies: Fever, Chills HEENT: Reports: No Symptoms Respiratory: Reports: Shortness of Breath, Cough Cardiovascular: Denies: Chest Pain GI/Abdominal: Reports: Abdominal Pain, Nausea. Denies: Diarrhea, Vomiting Neurological: Reports: No Symptoms ED EXAM, GENERAL - Physical Exam Exam: See Below Exam Limited By: No Limitations General Appearance: Alert, No Apparent Distress Eye Exam: Bilateral Eye: EOMI (No jaundice) Head: Atraumatic Respiratory/Chest: No Respiratory Distress, Rales (A few scattered bilateral rales) Cardiovascular: Regular Rate, Rhythm GI/Abdominal: Soft, Non-Tender (No current tenderness) Neurological: Alert, Oriented Psychiatric: Normal Affect, Normal Mood Skin Exam: Warm, Dry Course - Vital Signs Last Recorded V/S: Last Vital Signs Temp 96 F 09/23/18 13:36 Pulse 69 09/23/18 16:14 Resp 21 H 09/23/18 16:14 BP 165/66 H 09/23/18 16:14 Pulse Ox 92 L 09/23/18 16:14 - Orders/Labs/Meds Orders: Active Orders 24 hr Category Date Time Status Abdomen Pelvis w Cont [CT] Stat Exams 09/23/18 14:49 Taken Labs: Laboratory Tests 09/23/18 09/23/18 09/23/18 Range/Units 14:02 14:07 14:07 WBC 10.5 (4.5-11.0) K/uL RBC (3.30-5.50) M/uL Hgb 9.7 L (12.0-15.0) g/dL Hct (36.0-48.0) % MCV (80-98) fL MCH (27-31) pg MCHC (32-36) % Plt Count 364 (150-400) K/uL Neut % (Auto) 74 H (36-66) % Lymph % (Auto) 15 L (24-44) % [place] % (Auto) 9 H (2-6) % Eos % (Auto) 2 (2-4) % Baso % (Auto) 0 (0-1) % Sodium 142 (140-148) mmol/L Potassium 4.0 (3.6-5.2) mmol/L Chloride 105 (100-108) mmol/L Carbon Dioxide 27 (21-32) mmol/L Anion Gap 10.0 (5.0-14.0) mmol/L BUN 18 (7-18) mg/dL Creatinine 1.1 H (0.6-1.0) mg/dL Est Cr Clr Drug Dosing 37.57 mL/min Estimated GFR (MDRD) 48 L (>60) Glucose 137 H (74-106) mg/dL Lactic Acid 1.3 (0.4-2.0) mmol/L Calcium 9.0 (8.5-10.1) mg/dL Total Bilirubin 0.3 (0.2-1.0) mg/dL AST 24 (15-37) U/L ALT 17 (12-78) U/L Alkaline Phosphatase 125 H (46-116) U/L Total Protein 6.8 (6.4-8.2) g/dL Albumin 2.8 L (3.4-5.0) g/dL Globulin 4.0 H (2.3-3.5) g/dL Albumin/Globulin Ratio 0.7 L (1.2-2.2) Amylase 58 (25-115) U/L Lipase 539 H (73-393) U/L Meds: Medications Discontinued Medications Generic Name Dose Route Start Last Admin Trade Name Andresq PRN Reason Stop Dose Admin Sodium Chloride 1,000 mls @ 500 mls/hr 09/23/18 15:00 09/23/18 15:00 Normal Saline IV 500 mls/hr ASDIRECTED AUGUSTINE Administration Sodium Chloride 100 mls @ 3 mls/sec 09/23/18 15:00 09/23/18 15:26 Normal Saline IV 3 mls/sec ASDIRECTED AUGUSTINE Administration Iopamidol 100 ml 09/23/18 15:00 09/23/18 15:27 Isovue-300 (61%) IV 100 ml . DIRECTED AUGUSTINE Administration Sodium Chloride 10 ml 09/23/18 14:59 09/23/18 15:27 Saline Flush FLUSH 09/23/18 15:00 10 ml ONETIME ONE Administration - Re-Assessments/Exams Free Text/Narrative Re-Assessment/Exam: 09/23/18 14:10 CBC, CMP, amylase and lipase were obtained. 09/23/18 15:40 white count is normal, hemoglobin 9.7. Entire chemistry profile is normal other than a mild elevation in glucose and alkaline phosphatase, mild decrease in creatinine and GFR. Lipase is mildly elevated. 09/23/18 15:41 CT scan of the abdomen and pelvis with IV contrast was obtained. Patient remained comfortable during her stay in the emergency room. 09/23/18 17:06 CT scan confirmed a possible right lower lobe mass or infiltrate, and numerous metastatic lesions in the abdomen. This could be manifestations of her lymphoma or a new primary. Copies of the CT were made for the patient as well as the dictated radiologic report and her granddaughter will call the oncologist tomorrow for a follow-up. Continue the antibiotics. Departure - Departure Time of Disposition: 17:19 Disposition: Home, Self-Care 01 Clinical Impression: Abdominal pain Qualifiers: Abdominal location: upper abdomen, unspecified Qualified Code(s): R10.10 - Upper abdominal pain, unspecified Lymphoma Qualifiers: Lymphoma type: unspecified type - Discharge Information Instructions: Abdominal Pain, Adult Referrals: Adams Ramachandran NP [Primary Care Provider] - Forms: ED Department Discharge Care Plan Goals: Continue your current medications including the amoxicillin, and call the oncology department to schedule a visit as soon as possible to discuss findings of your CT scan. - My Orders Last 24 Hours: My Active Orders 09/23/18 14:49 Abdomen Pelvis w Cont [CT] Stat - Assessment/Plan Last 24 Hours: My Active Orders 09/23/18 14:49 Abdomen Pelvis w Cont [CT] Stat
[2018-09-23] MEDS ORDERED: Sodium Chloride 0.9% 1,000 ML IV SCH (15:00)
[2018-09-23] MEDS ORDERED: Sodium Chloride 0.9% 100 ML IV SCH (15:00)
[2018-09-23] MEDS ORDERED: Iopamidol 612 MG/ML 100 ML Bottle IV SCH (15:00)
[2018-09-23] MEDS: Sodium Chloride 0.9% 10 ML Syringe FLUSH ONE ×2 (15:00→15:27)
[2018-09-23 16:15] VITALS: BP 165/66
--- NOTE | 2018-09-24 15:13 | CRLCT ---
Final Report: HISTORY: Upper abdominal pain. TECHNIQUE: CT abdomen pelvis with IV contrast. COMPARISON: CT abdomen pelvis 06/04/2017. FINDINGS: Abdomen: Diffusely decreased attenuation of the liver. No liver lesions. Cholecystectomy. Unchanged dilation of the bile ducts compatible with postcholecystectomy change. No pancreatic mass or pancreatic duct dilation. No spleen lesions. New 1.9 x 1.3 cm nodule of the lateral limb of the left adrenal gland. No right adrenal nodules. Kidneys enhance symmetrically. A few subcentimeter hypodense lesions in both kidneys are too small to characterize but are likely cysts. No hydronephrosis. 2 x 2 cm soft tissue nodule with central hypodensity in the left posterior perinephric fat (axial series 2 image 44) is new since comparison CT. Adjacent 2 mm nodule is also new. Similar new 1.5 x 1.6 cm soft tissue nodule anterior to the left lobe of the liver (series 2 image 31). No lymphadenopathy. Severe atherosclerosis. Ectasia of the infrarenal abdominal aorta up to 2.6 x 2.6 cm. Pelvis: Uterus is absent. No lymphadenopathy. Musculoskeletal and body wall: Several soft tissue nodules in the subcutaneous tissues of the abdomen and pelvis. Largest is a 1.8 x 2 cm nodule with central hypodensity in the right inguinal subcutaneous fat (series 2 image 145). Similar 1.7 cm nodule in the left inguinal region. Osteopenia. Degenerative changes of the spine. Chronic compression fracture of L4 vertebral body posted vertebral augmentation. Chronic compression deformity of T9 vertebral body. Approximately 2.5 x 1.5 cm area strandy infiltration in the left gluteal subcutaneous fat with small amount of adjacent subcutaneous gas. Lower chest: 4.4 x 3.6 cm area of masslike consolidation along the right lower lobe bronchovascular bundle. Bibasilar atelectasis or scarring. Coronary artery calcifications. IMPRESSION: 1. 4.4 x 3.6 cm area of masslike consolidation in the right lower lobe suspicious for malignancy. 2. Multiple soft tissue nodules within the abdomen and in the subcutaneous tissues, suspicious for metastases. 3. New 1.9 cm nodule of the left adrenal gland suspicious for metastasis. 4. Small area of stranding and gas in the left gluteal subcutaneous fat. Correlate with recent instrumentation or injury and adjacent wound. --- Discussed with Dr Ford on 09/23/18 at 1700 hours. Please note that all CT scans at this facility use dose modulation, iterative reconstruction, and/or weight-based dosing when appropriate to reduce radiation dose to as low as reasonably achievable. Dictated by Gonsalo Coats MD @ Sep 23 2018 4:41PM (Electronic Signature) MTDD
== END 2018-09-23 17:20 | disposition home or self-care (01) ==
LOC: JP.ED 13:24
DX: C85.90 Non-Hodgkin lymphoma, unspecified, unspecified site (principal); R10.10 Upper abdominal pain, unspecified; I11.0 Hypertensive heart disease with heart failure; I50.9 Heart failure, unspecified; I48.91 Unspecified atrial fibrillation; F32.9 Major depressive disorder, single episode, unspecified; F17.210 Nicotine dependence, cigarettes, uncomplicated; Z79.899 Other long term (current) drug therapy
CPT/HCPCS: 36415; 74177; 80053; 82150; 83605; 83690; 85025; 96360; 96361; 99284; J7030; Q9967; 99283

== ENCOUNTER 2018-09-30 10:18 | Emergency (ER) | payer MEDICARE, MEDICAID ==
[2018-09-30] MEDS ORDERED: HYDROmorphone 1 MG/ML Syringe IM ONE (10:53)
--- NOTE | 2018-09-30 11:02 | EDM.PDOC ---
ED HPI GENERAL MEDICAL PROBLEM - General Chief Complaint: Chest Pain Stated Complaint: BREATHING PROBLEMS Time Seen by Provider: 09/30/18 10:45 Source of Information: Reports: Patient, Family, RN Notes Reviewed History Limitations: Reports: No Limitations - History of Present Illness INITIAL COMMENTS - FREE TEXT/NARRATIVE: 77-year-old female presents to emergency department today complaint of abdominal /chest pain. She was recently in the emergency department one week ago with similar complaint underwent CT scan which did show a suspicious mass in the right lower lobe as well as suspicious nodules in the abdomen nodules in the adrenal gland suspicious for metastases. She was set to undergo head scanning this afternoon unfortunately they had to stop going to the procedure and came to the emergency department for pain control. Patient states her pain is so intense that she is unable to take a deep breath. She does have a known history of COPD and is currently using tobacco products also history of lymphoma Chest Pain Score (Numeric/FACES): 10 - Related Data Allergies Allergy/AdvReac Type Severity Reaction Status Date / Time diclofenac [From Voltaren] Allergy Cannot Verified 09/30/18 10:34 Remember tramadol Allergy Cannot Verified 09/30/18 10:34 Remember ibuprofen AdvReac Intermediate Syncope Verified 09/30/18 10:34 Home Meds: Home Meds Losartan [Cozaar] 50 tab PO DAILY 04/30/15 [History] atorvaSTATin [Lipitor] 40 mg PO BEDTIME #30 tablet 05/01/15 [Rx] Albuterol [Ventolin HFA] 1 puff .XX Q4H PRN 09/26/15 [History] Apixaban [Eliquis] 5 mg PO BID 09/26/15 [History] Calcium Carbonate/Vitamin D3 [Calcium 600-Vit D3 400 Tablet] 1 tab PO BID [History] Magnesium Oxide 400 mg PO BID 09/26/15 [History] Cholecalciferol (Vitamin D3) [Vitamin D3] 1,000 units PO DAILY 11/29/15 [History ] Cyanocobalamin (Vitamin B-12) [B-12] 500 mcg PO DAILY 11/29/15 [History] Docusate Sodium [Colace] 100 mg PO BID 11/29/15 [History] Ipratropium [Atrovent HFA] 2 puff IH QID 11/29/15 [History] Loratadine 10 mg PO DAILY 11/29/15 [History] Polyethylene Glycol 3350 [Miralax] 17 gm PO ASDIRECTED 11/29/15 [History] Multivitamins [Tab-A-Sarah] 1 tab PO DAILY 01/02/16 [History] Pantoprazole [ProTONIX] 40 mg PO DAILY 01/04/16 [History] Hydrocodone/Acetaminophen [Hydrocodon-Acetaminophen 5-325] 10 mg PO Q6H PRN 08/10 [History] Amiodarone [Cordarone] 200 mg PO DAILY 11/02/17 [History] Furosemide [Lasix] 20 mg PO DAILY 11/02/17 [History] Levothyroxine 25 mcg PO ACBREAKFAST 11/02/17 [History] Mirtazapine [Remeron] 7.5 mg PO BEDTIME 11/02/17 [History] Ranitidine HCl [Zantac] 150 mg PO BID 11/02/17 [History] Alendronate [Fosamax] 70 mg PO ASDIRECTED 09/23/18 [History] Calcitonin (Protection) [Miacalcin Nasal [place]] 1 spray NS DAILY 09/23/18 [History] Ferrous Sulfate 325 mg PO DAILY 09/23/18 [History] Lanreotide Acetate [Somatuline [place]] 90 mg SQ ASDIRECTED 09/23/18 [History] Metoprolol Succinate [Toprol XL] 25 mg PO DAILY 09/23/18 [History] Past Medical History HEENT History: Reports: Allergic Rhinitis, Cataract, Impaired Vision Cardiovascular History: Reports: Afib, Heart Failure, Heart Murmur, High Cholesterol, Hypertension Respiratory History: Reports: Bronchitis, Recurrent, COPD, Pneumonia, Recurrent Gastrointestinal History: Reports: Chronic Constipation, Gastritis, GERD, GI Bleed Genitourinary History: Reports: Renal Calculus, UTI, Recurrent Other Genitourinary History: mass of urinary bladder. 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, cold agglutinin Immunologic History: Reports: None Oncologic (Cancer) History: Reports: Lymphoma Dermatologic History: Reports: None - Infectious Disease History Infectious Disease History: Reports: Chicken Pox, Measles, TB - Past Surgical History Head Surgeries/Procedures: Reports: None HEENT Surgical History: Reports: Cataract Surgery, Oral Surgery Cardiovascular Surgical History: Reports: None GI Surgical History: Reports: Cholecystectomy, EGD Female Surgical History: Reports: Hysterectomy Neurological Surgical History: Reports: Laminectomy, Lumbar Spine Oncologic Surgical History: Reports: Bone Marrow Aspiration Social & Family History - Family History Family Medical History: Noncontributory - Tobacco Use Smoking Status *Q: Current Every Day Smoker Years of Tobacco use: 50 Packs/Tins Daily: 0.5 - Caffeine Use Caffeine Use: Reports: Coffee, Soda - Recreational Drug Use Recreational Drug Use: No ED ROS GENERAL - Review of Systems Review Of Systems: See Below Constitutional: Reports: No Symptoms HEENT: Reports: No Symptoms Respiratory: Reports: Shortness of Breath Cardiovascular: Reports: Chest Pain GI/Abdominal: Reports: Abdominal Pain : Reports: No Symptoms ED EXAM, GENERAL - Physical Exam Exam: See Below Exam Limited By: No Limitations General Appearance: Alert, Mild Distress Head: Atraumatic, Normocephalic Neck: Normal Inspection, Supple, Non-Tender, Full Range of Motion Respiratory/Chest: Lungs Clear, Decreased Breath Sounds Cardiovascular: Regular Rate, Rhythm, Systolic Murmur GI/Abdominal: Soft, Tender (Right upper quadrant) Course - Vital Signs Last Recorded V/S: Last Vital Signs Temp 97.4 F 09/30/18 10:24 Pulse 75 09/30/18 10:24 Resp 18 09/30/18 10:24 BP 137/52 L 09/30/18 10:24 Pulse Ox 94 L 09/30/18 10:24 - Orders/Labs/Meds Meds: Medications Discontinued Medications Generic Name Dose Route Start Last Admin Trade Name Freq PRN Reason Stop Dose Admin Hydromorphone HCl 1 mg 09/30/18 10:53 Dilaudid IM 09/30/18 10:54 ONETIME ONE Departure - Departure Time of Disposition: 11:15 Disposition: Home, Self-Care 01 Condition: Poor Clinical Impression: Abdominal pain Qualifiers: Abdominal location: upper abdomen, unspecified Qualified Code(s): R10.10 - Upper abdominal pain, unspecified - Discharge Information Referrals: Adams Ramachandran NP [Primary Care Provider] - Forms: ED Department Discharge Additional Instructions: Please report to [facility] for further evaluation - Assessment/Plan Plan: Assessment Acuity = acute Site and laterality = abdominal pain Etiology = probably related to cancer unknown type Manifestations = none Location of injury = Home Lab values = EKG demonstrates a normal sinus rhythm Plan I did review EKG results them talk to him about recent CT scan she did receive 1 mg of Dilaudid in the emergency department they would like to get a PET scan done today so they're going to transfer up to the [facility] for further evaluation This note was dictated using Meeps voice recognition software please call with any questions on syntax or grammar.
[2018-09-30 11:16] VITALS: BP 159/70
== END 2018-09-30 11:25 | disposition home or self-care (01) ==
LOC: JP.ED 10:18
DX: R10.11 Right upper quadrant pain (principal); I11.0 Hypertensive heart disease with heart failure; I50.9 Heart failure, unspecified; M06.9 Rheumatoid arthritis, unspecified; M19.90 Unspecified osteoarthritis, unspecified site; E03.9 Hypothyroidism, unspecified; K21.9 Gastro-esophageal reflux disease without esophagitis; Z90.49 Acquired absence of other specified parts of digestive tract; F17.210 Nicotine dependence, cigarettes, uncomplicated; Z98.890 Other specified postprocedural states; Z90.710 Acquired absence of both cervix and uterus; Z98.49 Cataract extraction status, unspecified eye; Z86.73 Personal history of transient ischemic attack (TIA), and cerebral infarction without residual deficits; Z79.899 Other long term (current) drug therapy; Z88.6 Allergy status to analgesic agent; Z88.5 Allergy status to narcotic agent; Z88.8 Allergy status to other drugs, medicaments and biological substances
CPT/HCPCS: 93005; 96372; 99284; J1170

== ENCOUNTER 2018-10-04 05:47 | Emergency (ER) | payer MEDICARE, MEDICAID ==
[2018-10-04] MEDS ORDERED: HYDROmorphone 0.5 MG/0.5 ML Syringe IVPUSH ONE ×2 (06:01→06:49)
[2018-10-04] MEDS ORDERED: HYDROmorphone 0.5 MG/0.5 ML Syringe ONE (06:04)
--- NOTE | 2018-10-04 06:13 | EDM.PDOC ---
ED HPI GENERAL MEDICAL PROBLEM - General Chief Complaint: Lower Extremity Injury/Pain Stated Complaint: FALL Time Seen by Provider: 10/04/18 06:11 Source of Information: Reports: Patient, Family History Limitations: Reports: No Limitations - History of Present Illness INITIAL COMMENTS - FREE TEXT/NARRATIVE: pt was on the way to the bathroom and her walker got caught on something. She lost her balance and landed on the left side. She is now having pain in the left hip and the left shoulder and clavicle area. Onset: Today, Sudden Duration: Hour(s): Location: Reports: Upper Extremity, Left, Lower Extremity, Left left hip Pain Score (Numeric/FACES): 5 left shoulder Pain Score (Numeric/FACES): 5 - Related Data Allergies Allergy/AdvReac Type Severity Reaction Status Date / Time diclofenac [From Voltaren] Allergy Cannot Verified 10/04/18 05:59 Remember tramadol Allergy Cannot Verified 10/04/18 05:59 Remember ibuprofen AdvReac Intermediate Syncope Verified 10/04/18 05:59 Home Meds: Home Meds Losartan [Cozaar] 50 tab PO DAILY 04/30/15 [History] atorvaSTATin [Lipitor] 40 mg PO BEDTIME #30 tablet 05/01/15 [Rx] Albuterol [Ventolin HFA] 1 puff .XX Q4H PRN 09/26/15 [History] Apixaban [Eliquis] 5 mg PO BID 09/26/15 [History] Calcium Carbonate/Vitamin D3 [Calcium 600-Vit D3 400 Tablet] 1 tab PO BID [History] Magnesium Oxide 400 mg PO BID 09/26/15 [History] Cholecalciferol (Vitamin D3) [Vitamin D3] 1,000 units PO DAILY 11/29/15 [History ] Cyanocobalamin (Vitamin B-12) [B-12] 500 mcg PO DAILY 11/29/15 [History] Docusate Sodium [Colace] 100 mg PO BID 11/29/15 [History] Ipratropium [Atrovent HFA] 2 puff IH QID PRN 11/29/15 [History] Loratadine 10 mg PO DAILY 11/29/15 [History] Polyethylene Glycol 3350 [Miralax] 17 gm PO ASDIRECTED 11/29/15 [History] Multivitamins [Tab-A-Sarah] 1 tab PO DAILY 01/02/16 [History] Hydrocodone/Acetaminophen [Hydrocodon-Acetaminophen 5-325] 10 mg PO Q6H PRN 08/10 [History] Amiodarone [Cordarone] 200 mg PO DAILY 11/02/17 [History] Furosemide [Lasix] 20 mg PO DAILY 11/02/17 [History] Levothyroxine 25 mcg PO ACBREAKFAST 11/02/17 [History] Mirtazapine [Remeron] 7.5 mg PO BEDTIME 11/02/17 [History] Ranitidine HCl [Zantac] 150 mg PO BID 11/02/17 [History] Alendronate [Fosamax] 70 mg PO ASDIRECTED 09/23/18 [History] Calcitonin ([place]) [Miacalcin Nasal [place]] 1 spray NS DAILY 09/23/18 [History] Ferrous Sulfate 325 mg PO BID 09/23/18 [History] Metoprolol Succinate [Toprol XL] 25 mg PO DAILY 09/23/18 [History] Albuterol [Proventil Neb Soln] 2.5 mg .XX Q4H 10/04/18 [History] Ascorbic Acid [Vitamin C] 500 mg PO BID 10/04/18 [History] Gabapentin [Neurontin] 200 mg PO BEDTIME 10/04/18 [History] Octreotide Acetate 30 mcg IJ Q28D 10/04/18 [History] Sennosides/Docusate Sodium [Senna-Docusate Sodium Tablet] 1 each PO BID [History] Sertraline [Zoloft] 100 mg PO BEDTIME 10/04/18 [History] Past Medical History HEENT History: Reports: Allergic Rhinitis, Cataract, Impaired Vision Cardiovascular History: Reports: Afib, Heart Failure, Heart Murmur, High Cholesterol, Hypertension Respiratory History: Reports: Bronchitis, Recurrent, COPD, Pneumonia, Recurrent Gastrointestinal History: Reports: Chronic Constipation, Gastritis, GERD, GI Bleed Genitourinary History: Reports: Renal Calculus, UTI, Recurrent Other Genitourinary History: mass of urinary bladder. 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, cold agglutinin Immunologic History: Reports: None Oncologic (Cancer) History: Reports: Lymphoma Dermatologic History: Reports: None - Infectious Disease History Infectious Disease History: Reports: Chicken Pox, Measles, TB - Past Surgical History Head Surgeries/Procedures: Reports: None HEENT Surgical History: Reports: Cataract Surgery, Oral Surgery Cardiovascular Surgical History: Reports: None GI Surgical History: Reports: Cholecystectomy, EGD Female Surgical History: Reports: Hysterectomy Neurological Surgical History: Reports: Laminectomy, Lumbar Spine Oncologic Surgical History: Reports: Bone Marrow Aspiration Social & Family History - Family History Family Medical History: Noncontributory - Tobacco Use Smoking Status *Q: Current Every Day Smoker Years of Tobacco use: 60 Packs/Tins Daily: 0.3 - Caffeine Use Caffeine Use: Reports: Coffee, Soda - Recreational Drug Use Recreational Drug Use: No Review of Systems - Review of Systems Review Of Systems: See Below Constitutional: Reports: No Symptoms Eyes: Reports: No Symptoms Ears: Reports: No Symptoms Nose: Reports: No Symptoms Mouth/Throat: Reports: No Symptoms Respiratory: Reports: Other (pt has pain in her chest and she is being worked up for a lung Ca. She did just have a pet scan done. ) Cardiovascular: Reports: Other ( chest has been painful. ) GI/Abdominal: Reports: No Symptoms Genitourinary: Reports: Other (pt has a history of frequent UTIs) Musculoskeletal: Reports: Shoulder Pain, Leg Pain, Other (pt fell and is having hip pain and her leg is externally rotated. ) Skin: Reports: No Symptoms ED EXAM, GENERAL - Physical Exam Exam: See Below Free Text/Narrative:: pt arrived after a fall when her walker got caught on something. She is having pain in her left shoulder and in her left hip. Her left leg is externally rotated. Exam Limited By: No Limitations General Appearance: Alert, Anxious, Moderate Distress Ears: Normal TMs Nose: Normal Inspection Throat/Mouth: Normal Inspection Head: Atraumatic Neck: Normal Inspection Respiratory/Chest: No Respiratory Distress Cardiovascular: Irregularly Irregular, Other (pt has known atrial fib aand is on elequist) GI/Abdominal: Soft, Non-Tender (Female) Exam: Deferred Rectal (Female) Exam: Deferred Back Exam: Normal Inspection Extremities: Other (left leg is externally rotated and she has alot of pain in the left hip area. She also has tenderness over the left clavicle. ) Neurological: Alert, Oriented, Normal Cognition Psychiatric: Depressed Mood Course - Vital Signs Last Recorded V/S: Last Vital Signs Temp 36.2 C 10/04/18 05:50 Pulse 69 10/04/18 05:50 Resp 20 10/04/18 05:50 BP 131/48 L 10/04/18 05:50 Pulse Ox 90 L 10/04/18 05:50 - Orders/Labs/Meds Orders: Active Orders 24 hr Category Date Time Status [place] Catheter Insertion [Insert Urinary Catheter] [OM. Care 10/04/18 07:00 Ordered PC] Q24H Urinary Catheter Assessment [RC] ASDIRECTED Care 10/04/18 06:50 Ordered Chest 1V Frontal [CR] Stat Exams 10/04/18 06:14 Ordered Clavicle Lt [CR] Stat Exams 10/04/18 06:08 Taken Hip Min 2V or 3V w Pelvis Lt [CR] Stat Exams 10/04/18 06:09 Ordered Shoulder Comp Lt [CR] Stat Exams 10/04/18 06:08 Taken UA W/MICROSCOPIC [URIN] Urgent Lab 10/04/18 06:11 Ordered Labs: Laboratory Tests 10/04/18 10/04/18 Range/Units 06:11 06:15 WBC 12.4 H (4.5-11.0) K/uL RBC 2.00 L (3.30-5.50) M/uL Hgb 7.2 L D (12.0-15.0) g/dL Hct 20.9 L (36.0-48.0) % MCV 105 H (80-98) fL MCH 36 H (27-31) pg MCHC 34 (32-36) % Plt Count 419 H (150-400) K/uL Neut % (Auto) 80 H (36-66) % Lymph % (Auto) 8 L (24-44) % [place] % (Auto) 10 H (2-6) % Eos % (Auto) 2 (2-4) % Baso % (Auto) 0 (0-1) % Sodium 138 L (140-148) mmol/L Potassium 3.7 (3.6-5.2) mmol/L Chloride 105 (100-108) mmol/L Carbon Dioxide 25 (21-32) mmol/L Anion Gap 11.7 (5.0-14.0) mmol/L BUN 22 H (7-18) mg/dL Creatinine 1.2 H (0.6-1.0) mg/dL Est Cr Clr Drug Dosing 34.44 mL/min Estimated GFR (MDRD) 44 L (>60) Glucose 151 H (74-106) mg/dL Calcium 8.6 (8.5-10.1) mg/dL Total Bilirubin 0.2 (0.2-1.0) mg/dL AST 25 (15-37) U/L ALT 16 (12-78) U/L Alkaline Phosphatase 112 (46-116) U/L Total Protein 6.2 L (6.4-8.2) g/dL Albumin 2.6 L (3.4-5.0) g/dL Globulin 3.6 H (2.3-3.5) g/dL Albumin/Globulin Ratio 0.7 L (1.2-2.2) Meds: Medications Discontinued Medications Generic Name Dose Route Start Last Admin Trade Name Freq PRN Reason Stop Dose Admin Hydromorphone HCl 0.5 mg 10/04/18 06:01 10/04/18 06:04 Dilaudid IVPUSH 10/04/18 06:02 0.5 mg ONETIME ONE Administration Hydromorphone HCl Confirm 10/04/18 06:04 Dilaudid Administered 10/04/18 06:05 Dose 0.5 mg .ROUTE .STK-MED ONE Hydromorphone HCl 0.5 mg 10/04/18 06:49 Dilaudid IVPUSH 10/04/18 06:50 ONETIME ONE - Re-Assessments/Exams Free Text/Narrative Re-Assessment/Exam: 10/04/18 07:08 shoulder xrays did not reveal a definite fracture. Her hip showed a intratrochnteric fracture with slight displacement. Departure - Departure Time of Disposition: 07:09 Disposition: DC/Tfer to Acute Hospital 02 Condition: Fair Clinical Impression: Hip fracture, left, Anemia, Cold agglutinin disease, Bone metastasis, Hilar mass, Atrial fibrillation - Discharge Information Referrals: PCP,None [Primary Care Provider] - Forms: ED Department Discharge Care Plan Goals: transfer to [facility] - My Orders Last 24 Hours: My Active Orders 10/04/18 06:08 Clavicle Lt [CR] Stat Shoulder Comp Lt [CR] Stat 10/04/18 06:09 Hip Min 2V or 3V w Pelvis Lt [CR] Stat 10/04/18 06:11 UA W/MICROSCOPIC [URIN] Urgent 10/04/18 06:14 Chest 1V Frontal [CR] Stat 10/04/18 06:50 Urinary Catheter Assessment [RC] ASDIRECTED 10/04/18 07:00 [place]ston Catheter Insertion [Insert Urinary Catheter] [OM.PC] Q24H - Assessment/Plan Last 24 Hours: My Active Orders 10/04/18 06:08 Clavicle Lt [CR] Stat Shoulder Comp Lt [CR] Stat 10/04/18 06:09 Hip Min 2V or 3V w Pelvis Lt [CR] Stat 10/04/18 06:11 UA W/MICROSCOPIC [URIN] Urgent 10/04/18 06:14 Chest 1V Frontal [CR] Stat 10/04/18 06:50 Urinary Catheter Assessment [RC] ASDIRECTED 10/04/18 07:00 [place]ston Catheter Insertion [Insert Urinary Catheter] [OM.PC] Q24H
--- NOTE | 2018-10-04 07:20 | CRLCR ---
INDICATION: Pain. TECHNIQUE: Two views of the left clavicle. COMPARISON: None. IMPRESSION: No clavicle fracture. Sternoclavicular joint is suboptimally assessed. The acromioclavicular joint appears mild degenerated but normally aligned. Please refer to the left shoulder series for further discussion of the glenohumeral joint/scapula findings. Dictated by Girish Multani MD @ 10/04/2018 7:17:06 AM Dictated by: Girish Multani MD @ 10/04/2018 07:18:21 (Electronically Signed)
--- NOTE | 2018-10-04 07:27 | CRLCR ---
INDICATION: Shoulder pain. TECHNIQUE: Three views of the left shoulder. COMPARISON: None. IMPRESSION: The glenohumeral joint is suboptimally assessed on the lateral view due to suboptimal patient positioning, although no garcia dislocation is identified. There are low-grade degenerative changes of the glenohumeral joint, with mild joint space narrowing and marginal osteophytic spurring. There is a lytic lesion seen along the superior aspect of the glenoid extending to the superior glenoid neck. The etiology of this finding is indeterminate. This does not appear to be related to a periarticular erosion (i.e. arthritis). If the patient has a known primary, this could be related to metastatic disease. This could also be secondary to multiple myeloma. Recommend clinical correlation. Low-grade degenerative changes of the acromioclavicular joint are noted. Age indeterminate left 4th lateral rib fracture. The spine is suboptimally assessed although a few age-indeterminate mild compression fractures are noted. Dictated by Girish Multani MD @ 10/04/2018 7:23:59 AM Dictated by: Girish Multani MD @ 10/04/2018 07:25:35 (Electronically Signed)
[2018-10-04 07:29] VITALS: BP 134/41
--- NOTE | 2018-10-04 07:33 | CRLCR ---
INDICATION: Short of breath. TECHNIQUE: Portable supine AP view of the chest. COMPARISON: None available. FINDINGS: Heart is mildly enlarged. There is right superior paratracheal prominence which is nonspecific. This could be related to vascular ectasia. Underlying mass is not excluded. Atherosclerotic changes are noted. There is mild pulmonary vascular congestion with asymmetric perihilar edema, right worse than left. Bibasilar atelectasis. There is no appreciable pleural fluid or pneumothorax on this supine study. Please see the left shoulder series for further discussion of a lytic lesion involving the left scapula. A few age-indeterminate mild thoracic spine compression fractures are noted. IMPRESSION: 1. Findings suggesting low-grade CHF. 2. Right paratracheal prominence, which may related to vascular ectasia otherwise indeterminate. Recommend comparison with prior studies. If there are no prior studies, followup PA and lateral view of the chest is recommended. 3. Other findings as noted. Dictated by Girish Multani MD @ 10/04/2018 7:32:00 AM Dictated by: Girish Multani MD @ 10/04/2018 07:32:04 (Electronically Signed)
--- NOTE | 2018-10-04 07:35 | CRLCR ---
INDICATION: Pain. TECHNIQUE: AP pelvis, AP and frogleg lateral views of the left hip. COMPARISON: None. IMPRESSION: There is an acute, comminuted intertrochanteric fracture of the left proximal femur. L4 vertebral body compression fracture is noted, status post vertebroplasty. This is suboptimally assessed. Dictated by Girish Multani MD @ 10/04/2018 7:34:50 AM Dictated by: Girish Multani MD @ 10/04/2018 07:34:56 (Electronically Signed)
== END 2018-10-04 08:00 ==
LOC: JP.ED 05:47
DX: S72.142A Displaced intertrochanteric fracture of left femur, initial encounter for closed fracture (principal); C79.51 Secondary malignant neoplasm of bone; C80.1 Malignant (primary) neoplasm, unspecified; D64.9 Anemia, unspecified; I48.91 Unspecified atrial fibrillation; D59.1 Other autoimmune hemolytic anemias; F17.210 Nicotine dependence, cigarettes, uncomplicated; I11.0 Hypertensive heart disease with heart failure; I50.9 Heart failure, unspecified; K21.9 Gastro-esophageal reflux disease without esophagitis; F32.9 Major depressive disorder, single episode, unspecified; E03.9 Hypothyroidism, unspecified; Z86.73 Personal history of transient ischemic attack (TIA), and cerebral infarction without residual deficits; Z88.6 Allergy status to analgesic agent; Z79.899 Other long term (current) drug therapy; W19.XXXA Unspecified fall, initial encounter
CPT/HCPCS: 36415; 51702; 71045; 73000; 73030; 73502; 80053; 81001; 85025; 96374; 96376; 99284; J1170

== ENCOUNTER 2018-11-03 14:59 | Emergency (ER) | payer MEDICARE, MEDICAID ==
[2018-11-03] MEDS ORDERED: Sodium Chloride 0.9% 10 ML Syringe FLUSH PRN (15:30)
--- NOTE | 2018-11-03 15:31 | EDM.PDOC ---
ED HPI GENERAL MEDICAL PROBLEM - General Chief Complaint: General Stated Complaint: NOT FEELING WELL Time Seen by Provider: 11/03/18 15:15 Source of Information: Reports: Patient, Family, Old Records History Limitations: Reports: No Limitations - History of Present Illness INITIAL COMMENTS - FREE TEXT/NARRATIVE: 77 yo female here with fatigue and generally not feeling well. Says it feels like she has felt in the past when she is anemic. 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 Says stools are always black from her iron therapy so can't tell if she has blood present. Has no abdominal pain. Has required transfusions in the past. Was recently in [facility] for a broken hip and has been recovering in a local [facility] for about a week. 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 (see below) (routine meds) - Related Data Allergies Allergy/AdvReac Type Severity Reaction Status Date / Time diclofenac [From Voltaren] Allergy Cannot Verified 11/03/18 15:20 Remember oxycodone Allergy Other Verified 11/03/18 15:21 tramadol Allergy Cannot Verified 11/03/18 15:20 Remember ibuprofen AdvReac Intermediate Syncope Verified 11/03/18 15:20 Home Meds: Home Meds Losartan [Cozaar] 50 tab PO DAILY 04/30/15 [History] atorvaSTATin [Lipitor] 40 mg PO BEDTIME #30 tablet 05/01/15 [Rx] Albuterol [Ventolin HFA] 1 puff .XX Q4H PRN 09/26/15 [History] Apixaban [Eliquis] 5 mg PO BID 09/26/15 [History] Calcium Carbonate/Vitamin D3 [Calcium 600-Vit D3 400 Tablet] 1 tab PO BID [History] Magnesium Oxide 400 mg PO BID 09/26/15 [History] Cholecalciferol (Vitamin D3) [Vitamin D3] 1,000 units PO DAILY 11/29/15 [History ] Cyanocobalamin (Vitamin B-12) [B-12] 500 mcg PO DAILY 11/29/15 [History] Docusate Sodium [Colace] 100 mg PO BID 11/29/15 [History] Ipratropium [Atrovent HFA] 2 puff IH QID PRN 11/29/15 [History] Loratadine 10 mg PO DAILY 11/29/15 [History] Polyethylene Glycol 3350 [Miralax] 17 gm PO ASDIRECTED 11/29/15 [History] Multivitamins [Tab-A-Sarah] 1 tab PO DAILY 01/02/16 [History] Hydrocodone/Acetaminophen [Hydrocodon-Acetaminophen 5-325] 10 mg PO Q6H PRN 08/10 [History] Amiodarone [Cordarone] 200 mg PO DAILY 11/02/17 [History] Furosemide [Lasix] 20 mg PO DAILY 11/02/17 [History] Levothyroxine 25 mcg PO ACBREAKFAST 11/02/17 [History] Mirtazapine [Remeron] 7.5 mg PO BEDTIME 11/02/17 [History] Ranitidine HCl [Zantac] 150 mg PO BID 11/02/17 [History] Alendronate [Fosamax] 70 mg PO ASDIRECTED 09/23/18 [History] Calcitonin ([place]) [Miacalcin Nasal [place]] 1 spray NS DAILY 09/23/18 [History] Ferrous Sulfate 325 mg PO BID 09/23/18 [History] Metoprolol Succinate [Toprol XL] 25 mg PO DAILY 09/23/18 [History] Albuterol [Proventil Neb Soln] 2.5 mg .XX Q4H 10/04/18 [History] Ascorbic Acid [Vitamin C] 500 mg PO BID 10/04/18 [History] Gabapentin [Neurontin] 200 mg PO BEDTIME 10/04/18 [History] Octreotide Acetate 30 mcg IJ Q28D 10/04/18 [History] Sennosides/Docusate Sodium [Senna-Docusate Sodium Tablet] 1 each PO BID [History] Sertraline [Zoloft] 100 mg PO BEDTIME 10/04/18 [History] Past Medical History HEENT History: Reports: Allergic Rhinitis, Cataract, Impaired Vision Cardiovascular History: Reports: Afib, Heart Failure, Heart Murmur, High Cholesterol, Hypertension Respiratory History: Reports: Bronchitis, Recurrent, COPD, Pneumonia, Recurrent Gastrointestinal History: Reports: Chronic Constipation, Gastritis, GERD, GI Bleed Genitourinary History: Reports: Renal Calculus, UTI, Recurrent Other Genitourinary History: mass of urinary bladder. 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: Dysfunctional Uterine Bleeding, Musculoskeletal History: Reports: Arthritis, Back Pain, Chronic, Osteoarthritis , RA Neurological History: Reports: CVA, Migraines, Vertigo Psychiatric History: Reports: Depression Endocrine/Metabolic History: Reports: Hypothyroidism, Vitamin D Deficiency Hematologic History: Reports: Anemia, B12 Deficiency, Blood Transfusion(s), Iron Deficiency, Other (See Below) 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, cold agglutinin Immunologic History: Reports: None Oncologic (Cancer) History: Reports: Lymphoma Dermatologic History: Reports: None - Infectious Disease History Infectious Disease History: Reports: Chicken Pox, Measles, TB - Past Surgical History Head Surgeries/Procedures: Reports: None HEENT Surgical History: Reports: Cataract Surgery, Oral Surgery Cardiovascular Surgical History: Reports: None GI Surgical History: Reports: Cholecystectomy, EGD Female Surgical History: Reports: Hysterectomy Neurological Surgical History: Reports: Laminectomy, Lumbar Spine Oncologic Surgical History: Reports: Bone Marrow Aspiration Social & Family History - Family History Family Medical History: Noncontributory - Caffeine Use Caffeine Use: Reports: Coffee, Soda ED ROS GENERAL - Review of Systems Review Of Systems: See Below Constitutional: Reports: Malaise, Fatigue HEENT: Reports: No Symptoms Respiratory: Reports: No Symptoms Cardiovascular: Reports: No Symptoms GI/Abdominal: Reports: Black Stool (not new) : Reports: No Symptoms Musculoskeletal: Reports: No Symptoms Skin: Reports: No Symptoms Neurological: Reports: No Symptoms Psychiatric: Reports: No Symptoms ED EXAM, GENERAL - Physical Exam Exam: See Below Exam Limited By: No Limitations General Appearance: Alert, WD/WN, No Apparent Distress Eye Exam: Bilateral Eye: Normal Inspection, PERRL, Other (conjunctival pallor) Ears: Normal External Exam, Normal Canal, Hearing Grossly Normal Ear Exam: Bilateral Ear: Auricle Normal, Canal Normal Nose: Normal Inspection, No Blood Throat/Mouth: Normal Inspection, Normal Lips, Normal Oropharynx, Normal Voice, No Airway Compromise Head: Atraumatic, Normocephalic Neck: Normal Inspection Respiratory/Chest: No Respiratory Distress, Lungs Clear, Normal Breath Sounds, No Accessory Muscle Use Cardiovascular: Regular Rate, Rhythm, No Edema GI/Abdominal: Normal Bowel Sounds, Soft, Non-Tender, No Distention, Other ( Rectal exam-no impactions, small amt of black stool present.) Extremities: Normal Inspection, Normal Range of Motion, Non-Tender, No Pedal Edema Neurological: Alert, Oriented, CN II-XII Intact, Normal Cognition, No Motor/ Sensory Deficits Psychiatric: Normal Affect, Normal Mood Skin Exam: Warm, Dry, Intact, Normal Color, No Rash, Pallor Lymphatic: No Adenopathy Course - Vital Signs Last Recorded V/S: Last Vital Signs Temp 36.1 C 11/03/18 15:18 Pulse 84 11/03/18 16:46 Resp 16 11/03/18 16:46 BP 117/33 L 11/03/18 16:46 Pulse Ox 96 11/03/18 16:46 - Orders/Labs/Meds Orders: Active Orders 24 hr Category Date Time Status TYPE AND SCREEN [BBK] Stat Lab 11/03/18 15:30 Ordered Lactated Ringers [Ringers, Lactated] 1,000 ml Med 11/03/18 16:56 Active IV BOLUS Sodium Chloride 0.9% [Saline Flush] Med 11/03/18 15:30 Active 10 ml FLUSH ASDIRECTED PRN Saline Lock Insert [OM.PC] Routine Oth 11/03/18 15:30 Ordered Medication Orders Lactated Ringer's (Ringers, Lactated) 1,000 mls @ 1,000 mls/hr IV BOLUS ONE Stop: 11/03/18 17:55 Last Admin: 11/03/18 17:04 Dose: 1,000 mls/hr Sodium Chloride (Saline Flush) 10 ml FLUSH ASDIRECTED PRN PRN Reason: Keep Vein Open Last Admin: 11/03/18 15:47 Dose: 10 ml Labs: Laboratory Tests 11/03/18 11/03/18 11/03/18 Range/Units 15:30 15:30 16:30 WBC 6.9 (4.5-11.0) K/uL RBC (3.30-5.50) M/uL Hgb 8.3 L (12.0-15.0) g/dL MCHC 46 H (32-36) % Plt Count 227 (150-400) K/uL Sodium 144 (140-148) mmol/L Potassium 3.7 (3.6-5.2) mmol/L Chloride 108 (100-108) mmol/L Carbon Dioxide 28 (21-32) mmol/L Anion Gap 7.7 (5.0-14.0) mmol/L BUN 17 (7-18) mg/dL Creatinine 1.0 (0.6-1.0) mg/dL Est Cr Clr Drug Dosing 41.33 mL/min Estimated GFR (MDRD) 54 L (>60) Glucose 122 H (74-106) mg/dL Calcium 8.3 L (8.5-10.1) mg/dL Troponin I < 0.017 (0.000-0.056) ng/mL Urine Color Yellow Urine Appearance Cloudy Urine pH 7.0 (4.5-8.0) Ur Specific [place] 1.010 (1.008-1.030) Urine Protein Trace (NEGATIVE) mg/dL Urine Glucose (UA) Negative (NEGATIVE) mg/dL Urine Ketones Negative (NEGATIVE) mg/dL Urine Occult Blood Negative (NEGATIVE) Urine Nitrite Positive H (NEGATIVE) Urine Bilirubin Negative (NEGATIVE) Urine Urobilinogen Normal (NORMAL) mg/dL Ur Leukocyte Esterase Moderate (NEGATIVE) Urine RBC 0-5 (0-5) Urine WBC 5-10 H (0-5) Ur Epithelial Cells Few Amorphous Sediment Few Urine Bacteria Many Urine Mucus Few Meds: Medications Generic Name Dose Route Start Last Admin Trade Name Freq PRN Reason Stop Dose Admin Lactated Ringer's 1,000 mls @ 1,000 mls/hr 11/03/18 16:56 11/03/18 17:04 Ringers, Lactated IV 11/03/18 17:55 1,000 mls/hr BOLUS ONE Administration Sodium Chloride 10 ml 11/03/18 15:30 11/03/18 15:47 Saline Flush FLUSH 10 ml ASDIRECTED PRN Administration Keep Vein Open Departure - Departure Time of Disposition: 18:05 Disposition: Home, Self-Care 01 Condition: Fair Clinical Impression: Heme positive stool Anemia Qualifiers: Anemia type: iron deficiency Iron deficiency anemia type: chronic blood loss Qualified Code(s): D50.0 - Iron deficiency anemia secondary to blood loss ( chronic) - Discharge Information *PRESCRIPTION DRUG MONITORING PROGRAM REVIEWED*: No *COPY OF PRESCRIPTION DRUG MONITORING REPORT IN PATIENT VERO: No Instructions: Anemia Referrals: PCP,None [Primary Care Provider] - Forms: ED Department Discharge Additional Instructions: Return tomorrow morning for blood transfusion to our outpatient department/ infusion center. See Dr. Benito to determine if further testing needs to be done regarding your ongoing gastrointestinal blood loss. Continue all your current medications. - My Orders Last 24 Hours: My Active Orders 11/03/18 15:30 TYPE AND SCREEN [BBK] Stat Sodium Chloride 0.9% [Saline Flush] 10 ml FLUSH ASDIRECTED PRN Saline Lock Insert [OM.PC] Routine 11/03/18 16:56 Lactated Ringers [Ringers, Lactated] 1,000 ml IV BOLUS - Assessment/Plan Last 24 Hours: My Active Orders 11/03/18 15:30 TYPE AND SCREEN [BBK] Stat Sodium Chloride 0.9% [Saline Flush] 10 ml FLUSH ASDIRECTED PRN Saline Lock Insert [OM.PC] Routine 11/03/18 16:56 Lactated Ringers [Ringers, Lactated] 1,000 ml IV BOLUS
[2018-11-03 16:46] VITALS: BP 117/33
[2018-11-03] MEDS ORDERED: Lactated Ringers 1,000 ML IV ONE (16:56)
== END 2018-11-03 18:40 | disposition home or self-care (01) ==
LOC: JP.ED 14:59
DX: D50.0 Iron deficiency anemia secondary to blood loss (chronic) (principal); K92.1 Melena; I11.0 Hypertensive heart disease with heart failure; I50.9 Heart failure, unspecified; E03.9 Hypothyroidism, unspecified; F32.9 Major depressive disorder, single episode, unspecified; Z98.49 Cataract extraction status, unspecified eye; Z98.890 Other specified postprocedural states; Z90.49 Acquired absence of other specified parts of digestive tract; Z90.710 Acquired absence of both cervix and uterus; Z86.73 Personal history of transient ischemic attack (TIA), and cerebral infarction without residual deficits; Z79.899 Other long term (current) drug therapy; Z88.5 Allergy status to narcotic agent; Z88.8 Allergy status to other drugs, medicaments and biological substances; Z88.6 Allergy status to analgesic agent
CPT/HCPCS: 36415; 80048; 81001; 82272; 84484; 85027; 86156; 86850; 86870; 86880; 86900; 86901; 86970; 86978; 96360; 99283; J7120

== ENCOUNTER 2018-11-28 18:51 | Emergency (ER) | payer MEDICARE, MEDICAID ==
[2018-11-28] MEDS ORDERED: Acetaminophen/HYDROcodone 325-10 MG Tab PO ONE (21:11)
--- NOTE | 2018-11-28 21:22 | EDM.PDOC ---
ED HPI GENERAL MEDICAL PROBLEM - General Chief Complaint: General Stated Complaint: fall Time Seen by Provider: 11/28/18 20:35 Source of Information: Reports: Patient History Limitations: Reports: No Limitations - History of Present Illness INITIAL COMMENTS - FREE TEXT/NARRATIVE: 77 yo female present to ER after a controlled decent to the floor while she was participating in physical therapy this afternoon. Pain in lower back and left hip have progressively worsened throughout the evening. Left Hip Pain Score (Numeric/FACES): 9 - Related Data Allergies Allergy/AdvReac Type Severity Reaction Status Date / Time diclofenac [From Voltaren] Allergy Cannot Verified 11/28/18 20:28 Remember oxycodone Allergy Other Verified 11/28/18 20:28 tramadol Allergy Cannot Verified 11/28/18 20:28 Remember ibuprofen AdvReac Intermediate Syncope Verified 11/28/18 20:28 Home Meds: Home Meds Losartan [Cozaar] 25 tab PO DAILY 04/30/15 [History] atorvaSTATin [Lipitor] 40 mg PO BEDTIME #30 tablet 05/01/15 [Rx] Albuterol [Ventolin HFA] 1 puff .XX Q4H PRN 09/26/15 [History] Apixaban [Eliquis] 5 mg PO BID 09/26/15 [History] Calcium Carbonate/Vitamin D3 [Calcium 600-Vit D3 400 Tablet] 1 tab PO BID [History] Magnesium Oxide 400 mg PO BID 09/26/15 [History] Cholecalciferol (Vitamin D3) [Vitamin D3] 1,000 units PO DAILY 11/29/15 [History ] Cyanocobalamin (Vitamin B-12) [B-12] 500 mcg PO DAILY 11/29/15 [History] Docusate Sodium [Colace] 100 mg PO BID 11/29/15 [History] Ipratropium [Atrovent HFA] 2 puff IH QID PRN 11/29/15 [History] Loratadine 10 mg PO BEDTIME 11/29/15 [History] Polyethylene Glycol 3350 [Miralax] 17 gm PO ASDIRECTED 11/29/15 [History] Multivitamins [Tab-A-Sarah] 1 tab PO DAILY 01/02/16 [History] Hydrocodone/Acetaminophen [Hydrocodon-Acetaminophen 5-325] 10 mg PO Q6H PRN 08/10 [History] Amiodarone [Cordarone] 200 mg PO DAILY 11/02/17 [History] Furosemide [Lasix] 20 mg PO DAILY 11/02/17 [History] Levothyroxine 25 mcg PO ACBREAKFAST 11/02/17 [History] Mirtazapine [Remeron] 7.5 mg PO BEDTIME 11/02/17 [History] raNITIdine HCl [Zantac] 150 mg PO BID 11/02/17 [History] Alendronate [Fosamax] 70 mg PO ASDIRECTED 09/23/18 [History] Calcitonin ([place]) [Miacalcin Nasal [place]] 1 spray NS DAILY 09/23/18 [History] Ferrous Sulfate 325 mg PO BID 09/23/18 [History] Metoprolol Succinate [Toprol XL] 0.5 tab PO DAILY 09/23/18 [History] Albuterol [Proventil Neb Soln] 2.5 mg .XX Q4H 10/04/18 [History] Ascorbic Acid [Vitamin C] 500 mg PO BID 10/04/18 [History] Gabapentin [Neurontin] 200 mg PO BEDTIME 10/04/18 [History] Octreotide Acetate 30 mcg IJ Q28D 10/04/18 [History] Sennosides/Docusate Sodium [Senna-Docusate Sodium Tablet] 1 each PO BID [History] Sertraline [Zoloft] 100 mg PO BEDTIME 10/04/18 [History] Anastrozole [Arimidex] 1 mg PO DAILY 11/28/18 [History] Budesonide/Formoterol Fumarate [Symbicort 80-4.5 Mcg Inhaler] 2 puff IN BID 10/12 [History] Cyclobenzaprine HCl 5 mg PO BEDTIME 11/28/18 [History] Past Medical History HEENT History: Reports: Allergic Rhinitis, Cataract, Impaired Vision Cardiovascular History: Reports: Afib, Heart Failure, Heart Murmur, High Cholesterol, Hypertension, [place] Respiratory History: Reports: Bronchitis, Recurrent, COPD, Pneumonia, Recurrent , Other (See Below) Other Respiratory History: has a lung mass, unsure of which side, drs with bruce howard Gastrointestinal History: Reports: Chronic Constipation, Gastritis, GERD, GI Bleed Genitourinary History: Reports: Renal Calculus, UTI, Recurrent Other Genitourinary History: mass of urinary bladder. 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 Bleeding, Musculoskeletal History: Reports: Arthritis, Back Pain, Chronic, Fracture, Osteoarthritis, RA, Other (See Below) Other Musculoskeletal History: "bones are weak" Neurological History: Reports: CVA, Migraines, TIA, Vertigo Psychiatric History: Reports: Depression Endocrine/Metabolic History: Reports: Hypothyroidism, Vitamin D Deficiency Hematologic History: Reports: Anemia, B12 Deficiency, Blood Transfusion(s), Iron Deficiency, Other (See Below) 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, cold agglutinin Immunologic History: Reports: None Oncologic (Cancer) History: Reports: Breast, Lymphoma Other Oncologic History: mestatic breast cancer, new diagnoised 11/24/2018 Dermatologic History: Reports: None - Infectious Disease History Infectious Disease History: Reports: Chicken Pox, Influenza, Measles, Mumps - Past Surgical History Head Surgeries/Procedures: Reports: None HEENT Surgical History: Reports: Cataract Surgery, Oral Surgery Cardiovascular Surgical History: Reports: None GI Surgical History: Reports: Cholecystectomy, Colonoscopy, EGD Female Surgical History: Reports: Hysterectomy Neurological Surgical History: Reports: Laminectomy, Lumbar Spine Musculoskeletal Surgical History: Reports: Other (See Below) Other Musculoskeletal Surgeries/Procedures:: left hip surgery Oncologic Surgical History: Reports: Bone Marrow Aspiration Social & Family History - Family History Family Medical History: Noncontributory - Tobacco Use Smoking Status *Q: Former Smoker Used Tobacco, but Quit: Yes Month/Year Tobacco Last Used: august 2018 - Caffeine Use Caffeine Use: Reports: Coffee, Soda - Recreational Drug Use Recreational Drug Use: No ED ROS GENERAL - Review of Systems Review Of Systems: See Below Constitutional: Denies: Fever, Chills, Fatigue Respiratory: Denies: Shortness of Breath Cardiovascular: Denies: Chest Pain ED EXAM, GENERAL - Physical Exam Exam: See Below Exam Limited By: No Limitations General Appearance: Alert, WD/WN, No Apparent Distress Respiratory/Chest: No Respiratory Distress, Lungs Clear, Decreased Breath Sounds Cardiovascular: Regular Rate, Rhythm, Systolic Murmur GI/Abdominal: Normal Bowel Sounds, Soft, Non-Tender Back Exam: Paraspinal Tenderness (bilateral lumbar). No: CVA Tenderness (R), CVA Tenderness (L) Extremities: Leg Pain (tenderness over left hip) Neurological: Alert, Oriented Course - Vital Signs Last Recorded V/S: Last Vital Signs Temp 36.3 C 11/28/18 20:33 Pulse 98 11/28/18 21:51 Resp 17 11/28/18 20:33 BP 106/47 L 11/28/18 21:51 Pulse Ox 96 11/28/18 21:51 - Orders/Labs/Meds Orders: Active Orders 24 hr Category Date Time Status Hip Min 2V or 3V Lt [CR] Stat Exams 11/28/18 21:09 Taken Lumbar Spine 2 or 3V [CR] Stat Exams 11/28/18 21:10 Taken Meds: Medications Discontinued Medications Generic Name Dose Route Start Last Admin Trade Name Freq PRN Reason Stop Dose Admin Hydrocodone Bitart/Acetaminophen 1 tab 11/28/18 21:11 11/28/18 21:50 [place] 325-10 Mg PO 11/28/18 21:12 1 tab ONETIME ONE Administration - Radiology Interpretation Free Text/Narrative:: preliminary review of hip and lumbar x-ray no acute injury and hard wear in place in left hip. moderate amount of retained stool on right - Re-Assessments/Exams Free Text/Narrative Re-Assessment/Exam: 11/28/18 22:13 pain tolerable. moderate amount of retained stool on right. last BM was this AM pt does c/o bloating and feeling full. discussed increasing her bowel regimen to repeat miralax dose at bedtime if no BM throughout the day Departure - Departure Time of Disposition: 22:15 Disposition: Home, Self-Care 01 Condition: Good Clinical Impression: Hip pain, left Back pain Qualifiers: Back pain location: low back pain Chronicity: acute Back pain laterality: bilateral Sciatica presence: without sciatica Qualified Code(s): M54.5 - Low back pain - Discharge Information *PRESCRIPTION DRUG MONITORING PROGRAM REVIEWED*: Not Applicable *COPY OF PRESCRIPTION DRUG MONITORING REPORT IN PATIENT VERO: Not Applicable Instructions: Joint Pain, [id number] Referrals: Deo Cruz MD [Primary Care Provider] - Forms: ED Department Discharge Additional Instructions: no acute injury noted to hip or back on preliminary review of x-rays continue current pain control schedule ice as needed for pain if no bowel movement in 12 hours give second dose of miralax at bedtime - My Orders Last 24 Hours: My Active Orders 11/28/18 21:09 Hip Min 2V or 3V Lt [CR] Stat 11/28/18 21:10 Lumbar Spine 2 or 3V [CR] Stat - Assessment/Plan Last 24 Hours: My Active Orders 11/28/18 21:09 Hip Min 2V or 3V Lt [CR] Stat 11/28/18 21:10 Lumbar Spine 2 or 3V [CR] Stat
[2018-11-28 21:52] VITALS: BP 106/47; PULSE 98
--- NOTE | 2018-11-28 22:50 | CRLCR ---
INDICATION: Trauma TECHNIQUE: Lumbar spine 2 view, 3 films COMPARISON: None FINDINGS: There is diffuse underlying osteopenia. There is an old compression type fracture of the L4 vertebral body with the patient status post vertebroplasty. Atherosclerotic calcification as well as a left dynamic hip screw are noted. Abdominal aorta measures 3.1 centimeters at the L3 level. On the AP view the L5 vertebral body appears grossly normal in height although this is poorly seen on the lateral view due to underlying osteopenia as well some overlap from the vertebroplasty cement. IMPRESSION: 1. Underlying osteopenia with old compression fracture of the L4 vertebral body and prior vertebroplasty. No acute fracture seen, however visualization of the L5 vertebral body is limited, especially on the lateral view due to the osteopenia and vertebroplasty cement. If there is pain localizing to this level, CT scan would be suggested for better characterization. 2. Atherosclerosis with minimal fusiform enlargement of the abdominal aorta at 3.1 cm. Dictated by Gabino Stahl MD @ Nov 28 2018 10:45PM Signed by Dr. Gabino Stahl @ Nov 28 2018 10:49PM
--- NOTE | 2018-11-28 22:53 | CRLCR ---
Indication: Trauma Technique: Left hip 2 views, 4 films Comparison: None Findings: There is an old intertrochanteric fracture of the left proximal femur with a dynamic hip screw. Single distal locking screw. No evidence of hardware fracture. No dislocation. Mild atherosclerotic calcification is noted. Impression: Old left intertrochanteric fracture status post dynamic hip screw placement without acute fracture or hardware failure. Dictated by Gabino Stahl MD @ Nov 28 2018 10:49PM Signed by Dr. Gabino Stahl @ Nov 28 2018 10:52PM
== END 2018-11-28 22:42 | disposition home or self-care (01) ==
LOC: JP.ED 18:51
DX: M25.552 Pain in left hip (principal); M54.5 Low back pain; I11.0 Hypertensive heart disease with heart failure; I50.9 Heart failure, unspecified; I48.91 Unspecified atrial fibrillation; I25.2 Old myocardial infarction; J44.9 Chronic obstructive pulmonary disease, unspecified; Z88.5 Allergy status to narcotic agent; Z88.8 Allergy status to other drugs, medicaments and biological substances; Z79.899 Other long term (current) drug therapy; Z79.01 Long term (current) use of anticoagulants; Z87.891 Personal history of nicotine dependence
CPT/HCPCS: 72100; 73502; 99283; A9270

== ENCOUNTER 2018-12-10 15:47 | Emergency (ER) | payer MEDICARE, MEDICAID ==
[2018-12-10 17:11] VITALS: BP 117/33; PULSE 81
--- NOTE | 2018-12-10 17:18 | EDM.PDOC ---
ED HPI GENERAL MEDICAL PROBLEM - General Chief Complaint: General Stated Complaint: MEDICAL VIA [facility] Time Seen by Provider: 12/10/18 16:00 Source of Information: Reports: Patient, Provider History Limitations: Reports: No Limitations - History of Present Illness INITIAL COMMENTS - FREE TEXT/NARRATIVE: 78-year-old female who gets recurring chronic anemia and needs frequent blood transfusions, has a very rare blood type and needed transfusions in [place]. She was struggling with progressive weakness so her hemoglobin was checked and is 4.6. She was sent to our emergency room so we could transfer her onto [place] to get transfusions. The patient herself feels fairly comfortable, is fatigued with decreased energy but no shortness of breath or pain. Onset: Gradual - Related Data Allergies Allergy/AdvReac Type Severity Reaction Status Date / Time diclofenac [From Voltaren] Allergy Cannot Verified 12/10/18 15:51 Remember oxycodone Allergy Other Verified 12/10/18 15:51 tramadol Allergy Cannot Verified 12/10/18 15:51 Remember ibuprofen AdvReac Intermediate Syncope Verified 12/10/18 15:51 Home Meds: Home Meds Losartan [Cozaar] 25 tab PO DAILY 04/30/15 [History] atorvaSTATin [Lipitor] 40 mg PO BEDTIME #30 tablet 05/01/15 [Rx] Albuterol [Ventolin HFA] 1 puff .XX Q4H PRN 09/26/15 [History] Apixaban [Eliquis] 5 mg PO BID 09/26/15 [History] Calcium Carbonate/Vitamin D3 [Calcium 600-Vit D3 400 Tablet] 1 tab PO BID [History] Magnesium Oxide 400 mg PO BID 09/26/15 [History] Cholecalciferol (Vitamin D3) [Vitamin D3] 1,000 units PO DAILY 11/29/15 [History ] Cyanocobalamin (Vitamin B-12) [B-12] 500 mcg PO DAILY 11/29/15 [History] Docusate Sodium [Colace] 100 mg PO BID 11/29/15 [History] Ipratropium [Atrovent HFA] 2 puff IH QID PRN 11/29/15 [History] Loratadine 10 mg PO BEDTIME 11/29/15 [History] Polyethylene Glycol 3350 [Miralax] 17 gm PO ASDIRECTED 07/05/16 [History] Multivitamins [Tab-A-Sarah] 1 tab PO DAILY 01/02/16 [History] Hydrocodone/Acetaminophen [Hydrocodon-Acetaminophen 5-325] 10 mg PO Q6H PRN 08/10 [History] Amiodarone [Cordarone] 200 mg PO DAILY 11/02/17 [History] Furosemide [Lasix] 20 mg PO DAILY 11/02/17 [History] Levothyroxine 25 mcg PO ACBREAKFAST 11/02/17 [History] Mirtazapine [Remeron] 7.5 mg PO BEDTIME 11/02/17 [History] raNITIdine HCl [Zantac] 150 mg PO BID 11/02/17 [History] Alendronate [Fosamax] 70 mg PO ASDIRECTED 09/23/18 [History] Calcitonin ([place]) [Miacalcin Nasal [place]] 1 spray NS DAILY 09/23/18 [History] Ferrous Sulfate 325 mg PO BID 09/23/18 [History] Metoprolol Succinate [Toprol XL] 0.5 tab PO DAILY 09/23/18 [History] Albuterol [Proventil Neb Soln] 2.5 mg .XX Q4H 10/04/18 [History] Ascorbic Acid [Vitamin C] 500 mg PO BID 10/04/18 [History] Gabapentin [Neurontin] 200 mg PO BEDTIME 10/04/18 [History] Octreotide Acetate 30 mcg IJ Q28D 10/04/18 [History] Sennosides/Docusate Sodium [Senna-Docusate Sodium Tablet] 1 each PO BID [History] Sertraline [Zoloft] 100 mg PO BEDTIME 10/04/18 [History] Anastrozole [Arimidex] 1 mg PO DAILY 11/28/18 [History] Budesonide/Formoterol Fumarate [Symbicort 80-4.5 Mcg Inhaler] 2 puff IN BID 10/12 [History] Cyclobenzaprine HCl 5 mg PO BEDTIME 11/28/18 [History] Past Medical History HEENT History: Reports: Allergic Rhinitis, Cataract, Impaired Vision Cardiovascular History: Reports: Afib, Heart Failure, Heart Murmur, High Cholesterol, Hypertension, [place] Respiratory History: Reports: Bronchitis, Recurrent, COPD, Pneumonia, Recurrent , Other (See Below) Other Respiratory History: has a lung mass, unsure of which side, drs with bruce howard Gastrointestinal History: Reports: Chronic Constipation, Gastritis, GERD, GI Bleed Genitourinary History: Reports: Renal Calculus, UTI, Recurrent Other Genitourinary History: mass of urinary bladder. 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: Dysfunctional Uterine Bleeding, Musculoskeletal History: Reports: Arthritis, Back Pain, Chronic, Fracture, Osteoarthritis, RA, Other (See Below) Other Musculoskeletal History: "bones are weak" Neurological History: Reports: CVA, Migraines, TIA, Vertigo Psychiatric History: Reports: Depression Endocrine/Metabolic History: Reports: Hypothyroidism, Vitamin D Deficiency Hematologic History: Reports: Anemia, B12 Deficiency, Blood Transfusion(s), Iron Deficiency, Other (See Below) 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, cold agglutinin Immunologic History: Reports: None Oncologic (Cancer) History: Reports: Breast, Lymphoma Other Oncologic History: mestatic breast cancer, new diagnoised 11/24/2018 Dermatologic History: Reports: None - Infectious Disease History Infectious Disease History: Reports: Chicken Pox, Measles, Mumps - Past Surgical History Head Surgeries/Procedures: Reports: None HEENT Surgical History: Reports: Cataract Surgery, Oral Surgery Cardiovascular Surgical History: Reports: None Respiratory Surgical History: Reports: None GI Surgical History: Reports: Cholecystectomy, Colonoscopy, EGD Female Surgical History: Reports: Hysterectomy Endocrine Surgical History: Reports: None Neurological Surgical History: Reports: Laminectomy, Lumbar Spine Musculoskeletal Surgical History: Reports: Other (See Below) Other Musculoskeletal Surgeries/Procedures:: left hip surgery Oncologic Surgical History: Reports: Bone Marrow Aspiration Dermatological Surgical History: Reports: None Social & Family History - Family History Family Medical History: Noncontributory - Tobacco Use Smoking Status *Q: Former Smoker Used Tobacco, but Quit: Yes Month/Year Tobacco Last Used: 10/05/2018 Second Hand Smoke Exposure: No - Caffeine Use Caffeine Use: Reports: Coffee, Soda, Tea - Recreational Drug Use Recreational Drug Use: No ED ROS GENERAL - Review of Systems Review Of Systems: See Below Constitutional: Reports: Malaise. Denies: Fever, Chills Respiratory: Denies: Shortness of Breath Cardiovascular: Denies: Chest Pain GI/Abdominal: Denies: Abdominal Pain Skin: Reports: Pallor ED EXAM, GENERAL - Physical Exam Exam: See Below Exam Limited By: No Limitations General Appearance: Alert, No Apparent Distress Eye Exam: Bilateral Eye: EOMI, Other (Pale conjunctiva) Head: Atraumatic Respiratory/Chest: No Respiratory Distress, Lungs Clear Neurological: Alert, Oriented Course - Vital Signs Last Recorded V/S: Last Vital Signs Temp 97.0 F 12/10/18 16:01 Pulse 81 12/10/18 17:10 Resp 13 12/10/18 17:10 BP 117/33 L 12/10/18 17:10 Pulse Ox 99 12/10/18 17:10 - Re-Assessments/Exams Free Text/Narrative Re-Assessment/Exam: 12/10/18 17:17 Dr. [facility] kindly accepted the patient for transfer for a blood transfusion. Departure - Departure Time of Disposition: 17:05 Disposition: DC/Tfer to Other 70 Clinical Impression: Chronic blood loss anemia - Discharge Information Referrals: PCP,None [Primary Care Provider] - Forms: ED Department Discharge Care Plan Goals: Patient will be transferred to [place] to be admitted for evaluation and ultimate blood transfusion for chronic blood loss anemia.
== END 2018-12-10 17:30 | disposition other institution (70) ==
LOC: JP.ED 15:47
DX: D50.0 Iron deficiency anemia secondary to blood loss (chronic) (principal); I48.91 Unspecified atrial fibrillation; E78.00 Pure hypercholesterolemia, unspecified; I11.0 Hypertensive heart disease with heart failure; I50.9 Heart failure, unspecified; I25.2 Old myocardial infarction; J44.9 Chronic obstructive pulmonary disease, unspecified; K21.9 Gastro-esophageal reflux disease without esophagitis; E03.9 Hypothyroidism, unspecified; Z88.5 Allergy status to narcotic agent; Z87.442 Personal history of urinary calculi; Z86.73 Personal history of transient ischemic attack (TIA), and cerebral infarction without residual deficits; Z88.6 Allergy status to analgesic agent; Z79.899 Other long term (current) drug therapy; Z87.891 Personal history of nicotine dependence
CPT/HCPCS: 99284

== ENCOUNTER 2018-12-24 10:45 | Emergency (ER) | payer MEDICARE, MEDICAID ==
--- NOTE | 2018-12-24 11:17 | EDM.PDOC ---
ED HPI GENERAL MEDICAL PROBLEM - General Chief Complaint: General Stated Complaint: MEDICAL VIA [facility] Time Seen by Provider: 12/24/18 11:00 Source of Information: Reports: Family, Fpc Records, Old Records History Limitations: Reports: Other (Patient is currently non-verbal) - History of Present Illness INITIAL COMMENTS - FREE TEXT/NARRATIVE: 78 yo female with metastatic breast CA is sent to the ER for evaluation of a rapidly deteriorating clinical condition. Has not been eating for the past 2 days. Not urinating. There is some question of her being over medicated for pain. Hospice has been discussed and the family has not been mentally ready to let her go. Has been followed by oncology, is apparently not responding to therapy. CXR yesterday showed CHF. No pneumonia. Onset: Gradual Onset Date: 12/22/18 (Deterioration more noticeable since Saturday) Duration: Day(s):, Getting Worse Location: Reports: Generalized Quality: Reports: Other (uncertain) Severity: Severe Improves with: Reports: None Worsens with: Reports: Other (?time) Context: Reports: Other (See HPI) Associated Symptoms: Reports: Loss of Appetite, Weakness. 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 (see below) (usual meds) - Related Data Allergies Allergy/AdvReac Type Severity Reaction Status Date / Time diclofenac [From Voltaren] Allergy Cannot Verified 12/10/18 15:51 Remember oxycodone Allergy Other Verified 12/10/18 15:51 tramadol Allergy Cannot Verified 12/10/18 15:51 Remember ibuprofen AdvReac Intermediate Syncope Verified 12/10/18 15:51 Home Meds: Home Meds Losartan [Cozaar] 25 tab PO DAILY 04/30/15 [History] atorvaSTATin [Lipitor] 40 mg PO BEDTIME #30 tablet 05/01/15 [Rx] Albuterol [Ventolin HFA] 1 puff .XX Q4H PRN 09/26/15 [History] Apixaban [Eliquis] 5 mg PO BID 09/26/15 [History] Calcium Carbonate/Vitamin D3 [Calcium 600-Vit D3 400 Tablet] 1 tab PO BID [History] Magnesium Oxide 400 mg PO BID 09/26/15 [History] Cholecalciferol (Vitamin D3) [Vitamin D3] 1,000 units PO DAILY 07/05/16 [History ] Cyanocobalamin (Vitamin B-12) [B-12] 500 mcg PO DAILY 11/29/15 [History] Docusate Sodium [Colace] 100 mg PO BID 11/29/15 [History] Ipratropium [Atrovent HFA] 2 puff IH QID PRN 11/29/15 [History] Loratadine 10 mg PO BEDTIME 11/29/15 [History] Polyethylene Glycol 3350 [Miralax] 17 gm PO ASDIRECTED 11/29/15 [History] Multivitamins [Tab-A-Sarah] 1 tab PO DAILY 01/02/16 [History] Amiodarone [Cordarone] 200 mg PO DAILY 11/02/17 [History] Furosemide [Lasix] 20 mg PO DAILY 11/02/17 [History] Levothyroxine 25 mcg PO ACBREAKFAST 11/02/17 [History] Mirtazapine [Remeron] 7.5 mg PO BEDTIME 11/02/17 [History] raNITIdine HCl [Zantac] 150 mg PO BID 11/02/17 [History] Alendronate [Fosamax] 70 mg PO ASDIRECTED 09/23/18 [History] Calcitonin ([place]) [Miacalcin Nasal [place]] 1 spray NS DAILY 09/23/18 [History] Ferrous Sulfate 325 mg PO BID 09/23/18 [History] Metoprolol Succinate [Toprol XL] 0.5 tab PO DAILY 09/23/18 [History] Albuterol [Proventil Neb Soln] 2.5 mg .XX Q4H 10/04/18 [History] Ascorbic Acid [Vitamin C] 500 mg PO BID 10/04/18 [History] Gabapentin [Neurontin] 200 mg PO BEDTIME 10/04/18 [History] Octreotide Acetate 30 mcg IJ Q28D 10/04/18 [History] Sennosides/Docusate Sodium [Senna-Docusate Sodium Tablet] 1 each PO BID [History] Sertraline [Zoloft] 100 mg PO BEDTIME 10/04/18 [History] Anastrozole [Arimidex] 1 mg PO DAILY 11/28/18 [History] Budesonide/Formoterol Fumarate [Symbicort 80-4.5 Mcg Inhaler] 2 puff IN BID 10/12 [History] Cyclobenzaprine HCl 5 mg PO BEDTIME 11/28/18 [History] Acetaminophen [Tylenol Extra Strength] 500 mg PO BID 12/24/18 [History] Furosemide [Lasix] 40 mg PO DAILY 12/24/18 [History] Hydrocodone/Acetaminophen [[place] 10-325 Tablet] 1 tab PO QID 12/24/18 [History] Ipratropium [place] 0.2 mg IH QID 12/24/18 [History] Morphine Sulfate [Morphine Sulfate ER] 15 mg PO BID 12/24/18 [History] Omeprazole 20 mg PO BIDAC 12/24/18 [History] Past Medical History HEENT History: Reports: Allergic Rhinitis, Cataract, Impaired Vision Cardiovascular History: Reports: Afib, Heart Failure, Heart Murmur, High Cholesterol, Hypertension, [place] Respiratory History: Reports: Bronchitis, Recurrent, COPD, Pneumonia, Recurrent , Other (See Below) Other Respiratory History: has a lung mass, unsure of which side, drs with bruce howard Gastrointestinal History: Reports: Chronic Constipation, Gastritis, GERD, GI Bleed Genitourinary History: Reports: Renal Calculus, UTI, Recurrent Other Genitourinary History: mass of urinary bladder. 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: Dysfunctional Uterine Bleeding, Musculoskeletal History: Reports: Arthritis, Back Pain, Chronic, Fracture, Osteoarthritis, RA, Other (See Below) Other Musculoskeletal History: "bones are weak" Neurological History: Reports: CVA, Migraines, TIA, Vertigo Psychiatric History: Reports: Depression Endocrine/Metabolic History: Reports: Hypothyroidism, Vitamin D Deficiency Hematologic History: Reports: Anemia, B12 Deficiency, Blood Transfusion(s), Iron Deficiency, Other (See Below) 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, cold agglutinin Immunologic History: Reports: None Oncologic (Cancer) History: Reports: Breast, Lymphoma Other Oncologic History: mestatic breast cancer, new diagnoised 11/24/2018 Dermatologic History: Reports: None - Infectious Disease History Infectious Disease History: Reports: Chicken Pox, Measles, Mumps - Past Surgical History Head Surgeries/Procedures: Reports: None HEENT Surgical History: Reports: Cataract Surgery, Oral Surgery Cardiovascular Surgical History: Reports: None Respiratory Surgical History: Reports: None GI Surgical History: Reports: Cholecystectomy, Colonoscopy, EGD Female Surgical History: Reports: Hysterectomy Endocrine Surgical History: Reports: None Neurological Surgical History: Reports: Laminectomy, Lumbar Spine Musculoskeletal Surgical History: Reports: Other (See Below) Other Musculoskeletal Surgeries/Procedures:: left hip surgery Oncologic Surgical History: Reports: Bone Marrow Aspiration Dermatological Surgical History: Reports: None Social & Family History - Family History Family Medical History: Noncontributory - Tobacco Use Smoking Status *Q: Former Smoker Used Tobacco, but Quit: Yes Month/Year Tobacco Last Used: not sure - Caffeine Use Caffeine Use: Reports: Coffee, Soda, Tea ED ROS GENERAL - Review of Systems Review Of Systems: Unable To Obtain (due to non-verbal state currently) Constitutional: Reports: Malaise, Weakness, Decreased Appetite ED EXAM, GENERAL - Physical Exam Exam: See Below Exam Limited By: No Limitations General Appearance: WD/WN, Lethargic Eye Exam: Right Eye: Other (corneal scar present, L eye with a constricted pupil. ) Ears: Normal External Exam, Normal Canal Ear Exam: Bilateral Ear: Auricle Normal, Canal Normal Nose: Normal Inspection, No Blood Throat/Mouth: Normal Lips, Other (dry oral mucosa.) Head: Atraumatic, Normocephalic Neck: Normal Inspection Respiratory/Chest: No Respiratory Distress, Lungs Clear, Rhonchi (on right) Cardiovascular: Regular Rate, Rhythm, Other (L upper extremity is very edematous ) GI/Abdominal: Soft, No Distention Extremities: Pedal Edema (L arm). No: Increased Warmth, Redness Neurological: Other (lethargic, non-verbal) Skin Exam: Warm, Dry, Intact, Normal Color, No Rash Course - Vital Signs Text/Narrative:: Discussed with Dr. De Luna @ 1304 hospitalist for [facility], accepts at 1535h Last Recorded V/S: Last Vital Signs Temp 36.7 C 12/24/18 10:52 Pulse 96 12/24/18 15:20 Resp 15 12/24/18 15:20 BP 96/46 L 12/24/18 15:20 Pulse Ox 95 12/24/18 14:31 - Orders/Labs/Meds Labs: Laboratory Tests 12/24/18 12/24/18 12/24/18 Range/Units 10:56 11:07 11:07 WBC 21.8 H (4.5-11.0) K/uL RBC (3.30-5.50) M/uL Hgb 7.0 L (12.0-15.0) g/dL Plt Count 486 H (150-400) K/uL Sodium 138 L (140-148) mmol/L Potassium 4.4 (3.6-5.2) mmol/L Chloride 102 (100-108) mmol/L Carbon Dioxide 31 (21-32) mmol/L Anion Gap 9.4 (5.0-14.0) mmol/L BUN 35 H (7-18) mg/dL Creatinine 1.0 (0.6-1.0) mg/dL Est Cr Clr Drug Dosing 35.55 mL/min Estimated GFR (MDRD) 54 L (>60) Glucose 108 H (74-106) mg/dL Calcium 8.5 (8.5-10.1) mg/dL Urine Color Yellow Urine Appearance Cloudy Urine pH 6.0 (4.5-8.0) Ur Specific [place] 1.010 (1.008-1.030) Urine Protein Trace (NEGATIVE) mg/dL Urine Glucose (UA) Normal (NEGATIVE) mg/dL Urine Ketones Negative (NEGATIVE) mg/dL Urine Occult Blood Negative (NEGATIVE) Urine Nitrite Negative (NEGATIVE) Urine Bilirubin Negative (NEGATIVE) Urine Urobilinogen 1 (NORMAL) mg/dL Ur Leukocyte Esterase Negative (NEGATIVE) Urine RBC 0-5 (0-5) Urine WBC 5-10 H (0-5) Ur Epithelial Cells Few Amorphous Sediment Few Urine Bacteria Moderate Urine Mucus Not seen Meds: Medications Discontinued Medications Generic Name Dose Route Start Last Admin Trade Name Andresq PRN Reason Stop Dose Admin Lactated Ringer's 1,000 mls @ 1,000 mls/hr 12/24/18 11:52 12/24/18 11:59 Ringers, Lactated IV 12/24/18 12:51 1,000 mls/hr BOLUS ONE Administration Ceftriaxone Sodium 1 gm/ 50 mls @ 100 mls/hr 12/24/18 14:14 12/24/18 14:29 Sodium Chloride IV 12/24/18 14:43 100 mls/hr ONETIME ONE Administration - Radiology Interpretation Free Text/Narrative:: CXR-slight improvement since yest CT head-? mets to the calvarium, brain neg. 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
[2018-12-24] MEDS ORDERED: Lactated Ringers 1,000 ML IV ONE (11:52)
--- NOTE | 2018-12-24 12:55 | CRLCR ---
INDICATION: Elevated white blood cell count, rhonchi. TECHNIQUE: Chest 1 view COMPARISON: Chest radiograph 11/23/2018. FINDINGS: Improved lower lung airspace consolidations since prior exam, however with persistent patchy opacity in the left mid and lower lung. Diffuse increased interstitial markings bilaterally. Stable cardiac silhouette. Aortic calcification. No pneumothorax. Small left pleural effusion. Degenerative changes in the spine. Again seen is the previously described lytic lesion in the left scapula. IMPRESSION: 1. Improved lower lung airspace consolidations since prior exam. Persistent patchy opacity in the left mid and lower lung. 2. Diffuse increased interstitial markings bilaterally may be due to edema. 3. Small left pleural effusion. Dictated by Katie Chance MD @ Dec 24 2018 12:48PM Signed by Dr. Katie Chance @ Dec 24 2018 12:53PM
[2018-12-24] MEDS ORDERED: cefTRIAXone 1 GM in Sodium Chloride 0.9% 50 ML IV ONE (14:14)
--- NOTE | 2018-12-24 15:15 | CRLCT ---
INDICATION: Decreased level of consciousness COMPARISON: 12/27/2016 TECHNIQUE: CT examination of the head was performed with 3 mm thick axial sections without intravenous contrast. Images were obtained from the vertex of the skull through the skull base, and I examined the images with the brain and bone windows. Please note that all CT scans at this facility use dose modulation, iterative reconstruction, and/or weight-based dosing when appropriate to reduce radiation dose to as low as reasonably achievable. FINDINGS: There are new poorly circumscribed lucent lesions in the calvarium worrisome for metastatic disease. These are located in the left high mid parietal region on axial image 39 series 5, in the left frontal region on axial image 35 series 5 lateral to the right frontal sinus on axial image 29 series 5, in the outer table of the right mid parietal skull on axial image 29 series 5 and in the right occipital skull on axial image 7 series 5. There is no change in mild encephalomalacia in the left high mid parietal subcortical white matter consistent with an old distal left anterior MCA infarct. The rest of the brain is normal in appearance for the patient`s age on today`s study, with no sign of mass lesion, mass effect, hemorrhage, or edema. There is no change in mild dilatation of the ventricles and sulci representing mild, age-appropriate atrophy. The visualized portions of the orbits are normal in appearance status post cataract surgery. The visualized paranasal sinuses and mastoids are clear. IMPRESSION: Multiple new poorly circumscribed lucent lesions scattered throughout the calvarium, worrisome for metastatic disease. Consider breast and lung cancer. Stable appearance of the brain with no sign of acute injury. Stable mild encephalomalacia in the high anterior left parietal subcortical white matter, an old distal left MCA infarct. Stable mild, age-appropriate atrophy. Please note that all CT scans at this facility use dose modulation, iterative reconstruction, and/or weight-based dosing when appropriate to reduce radiation dose to as low as reasonably achievable. Dictated by Mike Leblanc MD @ Dec 24 2018 3:06PM Signed by Dr. Mike Leblanc @ Dec 24 2018 3:12PM
[2018-12-24 15:44] VITALS: BP 90/39; PULSE 99
== END 2018-12-24 16:45 ==
LOC: JP.ED 10:45
DX: E86.0 Dehydration (principal); C50.919 Malignant neoplasm of unspecified site of unspecified female breast; D63.8 Anemia in other chronic diseases classified elsewhere; D72.829 Elevated white blood cell count, unspecified; E78.00 Pure hypercholesterolemia, unspecified; I11.0 Hypertensive heart disease with heart failure; I50.9 Heart failure, unspecified; I48.91 Unspecified atrial fibrillation; J44.9 Chronic obstructive pulmonary disease, unspecified; K21.9 Gastro-esophageal reflux disease without esophagitis; E03.9 Hypothyroidism, unspecified; F32.9 Major depressive disorder, single episode, unspecified; Z88.5 Allergy status to narcotic agent; Z88.6 Allergy status to analgesic agent; Z79.899 Other long term (current) drug therapy; Z79.01 Long term (current) use of anticoagulants; Z87.442 Personal history of urinary calculi; Z86.73 Personal history of transient ischemic attack (TIA), and cerebral infarction without residual deficits; Z87.891 Personal history of nicotine dependence
CPT/HCPCS: 36415; 70450; 71045; 80048; 81001; 85027; 96361; 96365; 99285; J0696; J7050; J7120